=== PATIENT | female | born 1945 | race Caucasian/White ===

== ENCOUNTER 2022-07-07 20:54 | Inpatient (IN) | payer OTHER, SELFPAY ==
--- NOTE | ~2022-07-07 | XR_ITS ---
EXAMINATION: XR CHEST CLINICAL INFORMATION: Shortness of breath COMPARISON: None TECHNIQUE: Frontal view of the chest was obtained. FINDINGS: The heart and pulmonary vessels appear normal. No infiltrates, effusions or lung masses are seen. Marked degenerative changes are present in both shoulders. XR/XR chest 1V IMPRESSION: No acute intrathoracic disease.
[2022-07-07 21:20] VITALS: BP 131/55; PULSE 90; RESP 16; TEMP 36.6; O2SAT 98; BMI 51.3
--- NOTE | 2022-07-07 23:09 | ED_ITS ---
HPI - Psych General Chief Complaint: Psychiatric Symptoms Stated Complaint: SI Time Seen by Provider: 07/07/22 22:26 Source: patient Mode of arrival: EMS Limitations: no limitations History of Present Illness HPI Narrative: Patient obese with history of depression, lymphedema, indwelling Membreno catheter nonambulatory comes here because she feeling very depressed feel like hurting herself with a plan to drink bleach patient had been having same feeling for long time and been fighting with depression with multiple reasons quality of life which she is not happy with. Patient denied fever/chills no nausea no vomi ting no diarrhea no abdominal pain Related Data Allergies Allergy/AdvReac Type Severity Reaction Status Date / Time adhesive tape [ADHESIVE TAPE] Allergy Unknown RASH Verified 07/07/22 22:06 penicillin V Allergy Unknown Unknown Verified 07/07/22 22:06 Penicillins [PCN] Allergy Unknown HIVES Verified 07/07/22 22:06 Sulfa (Sulfonamide Allergy Unknown HIVES Verified 07/07/22 22:06 Antibiotics) [SULFA(SULFONAMIDE ANTIBIOTICS)] sulfacetamide Allergy Unknown Unknown Verified 07/07/22 22:06 adhesive tape Allergy Unknown Unknown Uncoded 07/07/22 22:06 Review of Systems Review of Systems: Yes all other systems are reviewed and are negative [facility] Social History Social History Advance Directives: No Advance Directives Information Provided: No Physical Exam Vital Signs: Vital Signs: Last Vital Signs Temp 97.8 F 07/07/22 21:20 Pulse 90 07/07/22 21:20 Resp 16 07/07/22 21:20 BP 131/55 L 07/07/22 21:20 Pulse Ox 98 07/07/22 21:20 O2 Del Method 07/07/22 21:20 BMI result Body Mass Index 51.3 Appearance: Alert. Oriented X3. No acute distress. Eyes: PERRLA, No Nystagmus ENT: Pharynx normal. Oral Mucosa moist Neck: Normal inspection. Neck supple. CVS: Normal heart rate and rhythm. Pulses normal. Respiratory: No respiratory distress. Equal air entry bilateral, no wheezing/rales/rhonchi Abdomen: Soft and nontender. Bowel sounds are present, no mass palpable, no CVA tenderness Skin: Skin warm and dry. Normal skin color. Normal skin turgor. Extremities: Bilateral nonpitting leg edema. No calf tenderness psych; will depressed and suicidal no hallucinations/delusions Neuro: Oriented X 3. No motor deficit. No sensory deficit.No cerebellar signs , cranial nerves II-XII intact Medications Administered Discontinued Medications Generic Name Dose Route Start Last Admin Trade Name Susan PRN Reason Stop Dose Admin Acetaminophen 975 mg 07/07/22 23:10 07/07/22 23:50 Acetaminophen 325 Mg Tablet PO 07/07/22 23:11 975 mg ONCE ONE Administration Medical Decision Making Medical Decision Making MDM Narrative: Patient with major depression with suicidal ideation medically cleared .get crisis evaluation UA is pending Lab Data [facility] Lab Attestation statement: I reviewed the patient's lab results. Result Diagrams: 07/07/22 23:59 07/07/22 23:59 Labs: Lab Results 07/07/22 07/07/22 07/07/22 Range/Units 23:59 23:59 23:59 WBC 6.6 (4.8-10.8) X10*3/uL RBC 3.66 L (4.20-5.50) X10*6/uL Hgb 11.9 L (12.0-16.0) g/dl Hct 35.6 L (37.0-47.0) % MCV 97.3 (80.0-98.0) fL MCH 32.5 (27.0-33.0) pg MCHC 33.4 (31.0-35.0) g/dl RDW 13.2 (11.0-16.0) % Plt Count 201 (160-400) X10*3/uL MPV 9.6 (9.4-12.3) fL Immature Gran % (Auto) 0.3 (0.0-0.4) % Neut % (Auto) 65.6 (45-73) % Lymph % (Auto) 22.7 (20-40) % Jay % (Auto) 8.8 (2-11) % Eos % (Auto) 1.8 (0-4) % Baso % (Auto) 0.8 (0-2) % Lymph # (Auto) 1.5 (1.2-4.9) X10*3/uL Jay # (Auto) 0.6 (0.1-1.2) X10*3/uL Eos # (Auto) 0.1 (0.0-0.4) X10*3/uL Baso # (Auto) 0.1 (0.0-0.2) X10*3/uL Abs Immat Gran (auto) 0.02 (0.00-0.03) X10*3/uL Absolute Neuts (auto) 4.4 (2.0-8.3) x10*3/uL Absolute Nucleated RBC 0.000 (0.0-0.012) X10*3/uL Nucleated RBC % (auto) 0.0 (0.0-0.2) /100WBC Sodium (135-145) mmol/L Potassium (3.3-5.1) mmol/L Chloride (96-108) mmol/L Carbon Dioxide (22-29) mmol/L Anion Gap (12-20) BUN (9-16) mg/dL Creatinine (0.5-1.4) mg/dL Estim Creat Clear Calc Estimated GFR Random Glucose (60-115) mg/dL Calcium (8.4-10.2) mg/dL Magnesium (1.6-2.6) mg/dL Total Bilirubin (0.0-1.0) mg/dL AST (5-31) U/L ALT (0-31) U/L Alkaline Phosphatase (39-117) U/L Total Protein (6.5-8.0) g/dL Albumin (3.5-5.0) g/dL Ethyl Alcohol < 10 mg/dL COVID-19 (SHRUTI) Negative (Negative) COVID-19 Clin Com See Note 07/07/22 Range/Units 23:59 WBC (4.8-10.8) X10*3/uL RBC (4.20-5.50) X10*6/uL Hgb (12.0-16.0) g/dl Hct (37.0-47.0) % MCV (80.0-98.0) fL MCH (27.0-33.0) pg MCHC (31.0-35.0) g/dl RDW (11.0-16.0) % Plt Count (160-400) X10*3/uL MPV (9.4-12.3) fL Immature Gran % (Auto) (0.0-0.4) % Neut % (Auto) (45-73) % Lymph % (Auto) (20-40) % Jay % (Auto) (2-11) % Eos % (Auto) (0-4) % Baso % (Auto) (0-2) % Lymph # (Auto) (1.2-4.9) X10*3/uL Jay # (Auto) (0.1-1.2) X10*3/uL Eos # (Auto) (0.0-0.4) X10*3/uL Baso # (Auto) (0.0-0.2) X10*3/uL Abs Immat Gran (auto) (0.00-0.03) X10*3/uL Absolute Neuts (auto) (2.0-8.3) x10*3/uL Absolute Nucleated RBC (0.0-0.012) X10*3/uL Nucleated RBC % (auto) (0.0-0.2) /100WBC Sodium 140 (135-145) mmol/L Potassium 3.7 (3.3-5.1) mmol/L Chloride 104 (96-108) mmol/L Carbon Dioxide 27 (22-29) mmol/L Anion Gap 13 (12-20) BUN 20 H (9-16) mg/dL Creatinine 0.83 (0.5-1.4) mg/dL Estim Creat Clear Calc 75.3 Estimated GFR > 60 Random Glucose 121 H (60-115) mg/dL Calcium 9.0 (8.4-10.2) mg/dL Magnesium 2.0 (1.6-2.6) mg/dL Total Bilirubin 0.7 (0.0-1.0) mg/dL AST 19 (5-31) U/L ALT 16 (0-31) U/L Alkaline Phosphatase 82 (39-117) U/L Total Protein 5.7 L (6.5-8.0) g/dL Albumin 3.4 L (3.5-5.0) g/dL Ethyl Alcohol mg/dL COVID-19 (SHRUTI) (Negative) COVID-19 Clin Com Discharge Plan Discharge Clinical Impression: Suicidal ideation, Depression Patient Disposition: Still a Patient
[2022-07-07] MEDS: Acetaminophen 325 MG TABLET 975 MG PO (23:50)
[2022-07-08 00:06] LABS: MANUAL DIFF FLAG NO
[2022-07-08 00:07] LABS: Basophils Absolute Auto 0.1 X10*3/uL (0.0-0.2); Basophils Percent Auto 0.8 % (0-2); Eosinophils Absolute Auto 0.1 X10*3/uL (0.0-0.4); Eosinophils Percent Auto 1.8 % (0-4); Hematocrit 35.6 % (37.0-47.0); Hemoglobin 11.9 g/dl (12.0-16.0); Imm Gran Abs Auto 0.02 X10*3/uL (0.00-0.03); Imm Gran Pct Auto 0.3 % (0.0-0.4); Lymphocytes Absolute Auto 1.5 X10*3/uL (1.2-4.9); Lymphocytes Percent Auto 22.7 % (20-40); Mean Corpuscular HGB Conc 33.4 g/dl (31.0-35.0); Mean Corpuscular Hemoglobin 32.5 pg (27.0-33.0); Mean Corpuscular Volume 97.3 fL (80.0-98.0); Mean Platelet Volume 9.6 fL (9.4-12.3); Monocytes Absolute Auto 0.6 X10*3/uL (0.1-1.2); Monocytes Percent Auto 8.8 % (2-11); Neutrophils Absolute Auto 4.4 x10*3/uL (2.0-8.3); Neutrophils Percent Auto 65.6 % (45-73); Platelet Count 201 X10*3/uL (160-400); Red Blood Count 3.66 X10*6/uL (4.20-5.50); Red Cell Distribution Width 13.2 % (11.0-16.0); White Blood Count 6.6 X10*3/uL (4.8-10.8)
[2022-07-08 00:18] LABS: Ethanol < 10 mg/dL
[2022-07-08 00:22] LABS: Alanine Aminotransferase 16 U/L (0-31); Albumin Level 3.4 g/dL (3.5-5.0); Alkaline Phosphatase 82 U/L (39-117); Anion Gap 13 (12-20); Aspartate Amino Transferase 19 U/L (5-31); Blood Urea Nitrogen 20 mg/dL (9-16); Carbon Dioxide 27 mmol/L (22-29); Chloride 104 mmol/L (96-108); Creatinine Clr Calc Pharmacy 75.3; Estimated Glomerular Filt Rate > 60; Glucose Random 121 mg/dL (60-115); Potassium 3.7 mmol/L (3.3-5.1); Sodium 140 mmol/L (135-145); Total Protein 5.7 g/dL (6.5-8.0)
[2022-07-08 00:31] LABS: COVID-19 Test Negative (Negative)
--- NOTE | 2022-07-08 00:53 | PC.NURSE ---
Bessy from [facility] called and will be here to evaluate pt.
[2022-07-08 01:16] LABS: Bilirubin Total 0.7 mg/dL (0.0-1.0)
[2022-07-08 03:12] LABS: Appearance Urine Clear; Color Urine Yellow; Glucose Urine UA Negative (Negative); Leukocyte Esterase Urine Large (3+) (Negative); Nitrite Urine Positive (Negative); PH 6.5 (5.0-9.0); UMIC TRIGGER UACC YES; Urine Blood Negative (Negative); Urine Ketones Negative (Negative); Urine Protein Negative (Neg-Trace)
[2022-07-08 03:14] LABS: Bacteria Urine 4+ (None Seen); Squamous Epithelial Cell Urine 0-2 /HPF (0-2); UACC Culture Trigger YES; WBC Urine 21-50 /HPF (0-5)
--- NOTE | 2022-07-08 03:17 | PC.NURSE ---
[facility] at the bedside
[2022-07-08 03:48] LABS: Amphetamine Screen Urine Not Detected (Not Detect); Barbiturates, Urine Not Detected (Not Detect); Benzodiazepines Screen Urine Not Detected (Not Detect); Cannabinoid Screen Urine POSITIVE (Not Detect); Cocaine Screen Urine Not Detected (Not Detect); Fentanyl, urine Not Detected (Not Detect); Opiate Screen Urine Not Detected (Not Detect); Phencyclidine Screen Urine Not Detected (Not Detect)
[2022-07-08 04:07] VITALS: BP 134/73; PULSE 69; RESP 18; TEMP 36.7; O2SAT 95
--- NOTE | 2022-07-08 05:26 | PC.NURSE ---
pt is complaining that her bed is not comfortable she is use to sleeping in a recliner
[2022-07-08 05:33] VITALS: BP 153/73; PULSE 88; RESP 18; TEMP 36.3; O2SAT 94
--- NOTE | 2022-07-08 08:01 | PHA.MEDREC ---
Pharmacy Consult ? Medication Reconciliation Pharmacy has completed the medication reconciliation.
--- NOTE | 2022-07-08 08:16 | PC.NURSE ---
patient requesting Tylenol for pain. override ok per dr keane, computer flagging med due to allergy to adhesive tape.
[2022-07-08] MEDS: Acetaminophen 325 MG TABLET 650 MG PO (08:20)
[2022-07-08 08:23] VITALS: BP 141/51; PULSE 89; RESP 20; TEMP 36.4; O2SAT 96
[2022-07-08] MEDS: Ascorbic Acid 500 MG TABLET 1000 MG PO (10:59)
[2022-07-08] MEDS: Docusate Sodium 100 MG CAPSULE PO ×2 (10:59→20:26)
[2022-07-08] MEDS: Cholecalciferol (Vitamin D3) 25 MCG TABLET 50 MCG PO (10:59)
[2022-07-08] MEDS: Omeprazole 20 MG CAPSULE.DR PO (11:00)
[2022-07-08] MEDS: Multivitamin TABLET 1 TAB PO (11:00)
[2022-07-08] MEDS: Apixaban 2.5 MG TABLET PO ×2 (11:00→20:25)
[2022-07-08] MEDS: Torsemide 20 MG TABLET PO ×2 (11:00→20:29)
--- NOTE | 2022-07-08 12:21 | PC.NURSE ---
spoke with Dr Horton regarding patients urine results, per , wait to see what urine culture comes back as. patient has chronic stallings cath in place.
[2022-07-08] MEDS: Acetaminophen 325 MG TABLET 975 MG PO (14:35)
[2022-07-08] MEDS: Gabapentin 300 MG CAPSULE 900 MG PO ×2 (14:35→22:51)
[2022-07-08 14:36] VITALS: BP 138/61; PULSE 96; RESP 20; O2SAT 95
--- NOTE | 2022-07-08 15:56 | ECG_ITS ---
Test Reason : PRE ADMISSION Blood Pressure : / mmHG Vent. Rate : 080 BPM Atrial Rate : 080 BPM P-R Int : 184 ms QRS Dur : 088 ms QT Int : 422 ms P-R-T Axes : 041 011 023 degrees QTc Int : 486 ms Normal sinus rhythm Normal ECG No previous ECGs available Referred By: Ava Horton Electronically Signed By:DEBBIE ISAAC
[2022-07-08] MEDS: OLANZapine 2.5 MG TABLET PO (20:25)
[2022-07-08] MEDS: FLUoxetine HCl 10 MG CAPSULE PO (20:26)
[2022-07-08] MEDS: Calcium Carbonate 750 MG TAB.CHEW 1500 MG PO (20:27)
[2022-07-08 22:42] VITALS: BP 132/69; PULSE 92; RESP 16; TEMP 36.8; O2SAT 95
[2022-07-08] MEDS: LORazepam 1 MG TABLET PO (22:52)
[2022-07-08] MEDS: Nystatin Powder 15 GM BOTTLE 1 APPL TOPICAL (22:52)
[2022-07-08] MEDS: Melatonin 3 MG TABLET 9 MG PO (22:52)
[2022-07-09] MEDS: Acetaminophen 325 MG TABLET 975 MG PO ×3 (01:40→20:40)
[2022-07-09 05:55] VITALS: BP 140/72; PULSE 69; RESP 16; TEMP 36.9; O2SAT 93
[2022-07-09 06:57] VITALS: BP 148/69; PULSE 84; RESP 14; O2SAT 95
[2022-07-09] MEDS: Omeprazole 20 MG CAPSULE.DR PO (07:17)
[2022-07-09] MEDS: FLUoxetine HCl 10 MG CAPSULE 15 MG PO (08:15)
[2022-07-09] MEDS: Apixaban 2.5 MG TABLET PO ×2 (08:16→20:41)
[2022-07-09] MEDS: Gabapentin 300 MG CAPSULE 900 MG PO ×3 (08:16→20:42)
[2022-07-09] MEDS: Torsemide 20 MG TABLET PO ×2 (08:16→20:44)
[2022-07-09] MEDS: Multivitamin TABLET 1 TAB PO (08:16)
[2022-07-09] MEDS: Docusate Sodium 100 MG CAPSULE PO ×2 (08:16→20:42)
[2022-07-09] MEDS: Ascorbic Acid 500 MG TABLET 1000 MG PO (12:00)
[2022-07-09] MEDS: Cholecalciferol (Vitamin D3) 25 MCG TABLET 50 MCG PO (12:00)
[2022-07-09 14:27] VITALS: BP 111/63; PULSE 90; O2SAT 94
--- OUTSIDE RECORDS SUMMARY | 2022-07-09 16:21 | XMS_ITS ---
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, bilateral legs ALLERGIES Substance Reaction Event Type Date Status Bactrim Unknown Drug Allergy Sep, Active Adhesive Bandages Unknown Drug Allergy Sep, Active Penicillin Unknown Drug Allergy Sep, Active ENCOUNTERS Encounter Location Date Diagnosis [address] 15 Jun, 2022 [place] [address] [facility] [address] [place] [address] 14 Mar, 2022 [place] [address] [facility] [address] Jan, [place] [address] [facility] [place] [address] 04 Sep, 2021 Tinea darrell uium B35.1 ; Pain [place] in right toe(s) M79.674 ; [address] Pain in left toe (s) M79.675 ; Primar y osteoarthritis, left ankle and foot M19.072 ; Primary osteoarthritis, right ankle and foot M 19.071 ; Unspecified atherosclerosis of circle arteries of extr emities, bilateral legs I 70.203 ; Ganglion, multip le sites M67.49 and Neura lgia and neuritis, unspec ified M79.[address] 11 Jul, 2021 [place] [address] [facility] [place] [address] Jun, [place] [address] [place] [address] Mar, Tinea darrell uium B35.1 ; Pain [place] in right toe(s) M79.674 ; [address] Pain in left toe (s) M79.675 ; Primar y osteoarthritis, left ankle and foot M19.072 ; Primary osteoarthritis, right ankle and foot M 19.071 ; Unspecified atherosclerosis of circle arteries of extr emities, bilateral legs I 70.203 ; Ganglion, multip le sites M67.49 and Neura lgia and neuritis, unspec ified M79.2 [place] [address] Sep, Tinea darrell uium B35.1 ; Pain [place] in right toe(s) M79.674 ; [address] Pain in left toe (s) M79.675 ; Primar y osteoarthritis, left ankle and foot M19.072 ; Primary osteoarthritis, right ankle and foot M 19.071 and Unspecified atherosclerosis of circle arteries of extr emities, bilateral legs I 70.203 [facility] [address] Jun, [place] [address] [place] [address] Mar, Tinea darrell uium B35.1 ; Pain [facility], [place] in right toe(s) M79.674 ; [address] Pain in left toe (s) M79.675 ; Primar y osteoarthritis, left ankle and foot M19.072 ; Primary osteoarthritis, right ankle and foot M 19.071 and Unspecified atherosclerosis of circle arteries of extr emities, bilateral legs I 70.203 [facility] [address] Dec, Tinea darrell uium B35.1 ; Pain [facility], [place] in right toe(s) M79.674 ; [address] Pain in left toe (s) M79.675 ; Primar y osteoarthritis, left ankle and foot M19.072 ; Primary osteoarthritis, right ankle and foot M 19.071 and Unspecified atherosclerosis of circle arteries of extr emities, bilateral legs I 70.203 [facility] [address] [place] [address] Jul, Tinea darrell uium B35.1 ; Pain [place] in right toe(s) M79.674 ; [address] Pain in left toe (s) M79.675 ; Primar y osteoarthritis, left ankle and foot M19.072 ; Primary osteoarthritis, right ankle and foot M 19.071 and Unspecified atherosclerosis of circle arteries of extr emities, bilateral legs I 70.203 [facility] [address] [place] [address] 16 Apr, 2019 [place] [address] [facility] [address] [address] Apr, Tinea darrell uium B35.1 ; Pain [place] in right toe(s) M79.674 ; [address] Pain in left toe (s) M79.675 ; Primar y osteoarthritis, left ankle and foot M19.072 ; Primary osteoarthritis, right ankle and foot M 19.071 and Unspecified atherosclerosis of circle arteries of extr emities, bilateral legs I 70.203 [facility] [address] [place] [address] Mar, [place] [address] [facility] [address] [place] [address] Feb, [place] [address] [facility] [address] [address] Feb, [place] [address] [facility] [address] [address] Feb, [place] [address] [facility] [address] [address] Feb, [place] [address] [facility] [address] [place] [address] Feb, Tinea darrell uium B35.1 ; [place] Non-pressure chr onic ulcer [address] of other part of right foot with fat la santiago exposed L97.512 ; Pain in right toe(s) M79 .674 ; Pain in left toe (s) M79.675 ; Primar y osteoarthritis, left ankle and foot M19.072 ; Primary osteoarthritis, right ankle and foot M 19.071 ; Unspecified atherosclerosis of circle arteries of extr emities, bilateral legs I 70.203 ; Cutaneous absces s of right foot L02.611 and Cellulitis of ri ght toe L03.031 [facility] [address] [facility] [address] 08 Jun, 2017 [place] [address] 12 Dec, 2016 Tin ea unguium B35.1 ; [place] Non-pressure ch ronic ulcer [address] of other part of right foot limited to breakdown of skin L97.511 ; Pain in right toe(s) M79 .674 ; Pain in left toe (s) M79.675 ; Primar y osteoarthritis, left ankle and foot M19.072 ; Primary osteoarthritis, right ankle and foot M 19.071 and Unspecified atherosclerosis of circle arteries of extr emities, bilateral legs I 70.203 [facility] [address] Mar, Uns pecified [place] atherosclerosis of circle [address] arteries of extr emities, bilateral legs I 70.203 ; Tinea unguium B3 5.1 ; Pain in right toe(s) M79.674 and Pain in left toe(s) M79.[address] Feb, [place] [address] Jan, [place] [address] November, [place] [address] [facility] November, [place] [address] Sep, Ing rowing nail L60.0 ; [place] Non-pressure ch ronic ulcer [address] of other part of right foot limited to breakdown of skin L97.511 ; Unspecified atherosclerosis of circle arteries of extr emities, bilateral legs I 70.203 ; Primary osteoart hritis, left ankle and f oot M19.072 and Prim artemio osteoarthritis, right ankle and foot M 19.071 [facility] [address] [facility] [address] 17 Aug, 2015 Non-press ure chronic ulcer [place] of other part of right [address] foot limited to breakdown of skin L97.[address] 04 Dec, 2014 Ing rowing Nail 703.0 ; [place] Arthritis - Deg enerative [address] 719.97 ; Flat Fo ot, 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 ; Onychomycosis 11 0.1 and Pain in Limb [address] May, [place] [facility] [place] [address] November, Suki chomycosis 110.1 ; [place] Ingrowing Nail 703.0 and [address] Pain in Limb 7[address] November, Suki chomycosis 110.1 ; [place] Ingrowing Nail 703.0 ; [address] Pain in Limb 729 .5 ; Arthritis - Dege nerative 719.97 ; Flat Fo ot, 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 and Edema 782.3 IMMUNIZATIONS No Known Immunizations SOCIAL HISTORY Never Assessed REASON FOR REFERRAL Referring Provider First Name Sybil Referring Provider Last Name Anastacio Referring Provider Specialty Internal Medicine Referred Organization [facility] Referred Provider Jeffery Salinas Referred Address [address],[place], [place],[address] Referred Provider Specialty Podiatry Referring Provider First Name Sybil Referring Provider Last Name Anastacio Referring Provider Specialty Internal Medicine Referred Organization [facility] Referred Provider Jeffery Salinas Referred Address [address],[place], [place],[address] Referred Provider Specialty Podiatry Referring Provider First Name Sybil Referring Provider Last Name Anastacio Referring Provider Specialty Internal Medicine Referred Organization [facility] Referred Provider Jeffery Salinas Referred Address [address],[place],[address] Referred Provider Specialty Podiatry Referring Provider First Name Fernando Referring Provider Last Name Constanza Referred Organization [facility] Referred Provider Jeffery Salinas Referred Address [address] [facility],[address],[facility] [place],[address] Referred Provider Specialty Podiatry Referring Provider First Name Fernando Referring Provider Last Name Constanza Referred [facility] Referred Provider SalinasFannyJeffery Referred Address [address] [place], [place],[address] Referred Provider Specialty Podiatry FUNCTIONAL STATUS PLAN OF CARE Activity Details Referral Jeffery Salinas, [address] [facility], [place], [address], Referral Jeffery Salinas, [address] [facility], [place], [address], Referral Jeffery Salinas, [address] [facility], [place], [address], Referral Jeffery Salinas, [address] [facility], [place], [address], Referral Jeffery Salinas, [address] [place], [address], [email or web address], Future/Pending Procedure 20697-UUXS SKIN LESIONS, 2 T O 4 Future/Pending Procedure 88128-AWIL SKIN LESIONS, 2 T O 4 Future/Pending Procedure 17531-KCPQ SKIN LESIONS, 2 T O 4 Future/Pending Procedure 94046-ASDB SKIN LESIONS, 2 T O 4 Future/Pending Procedure 50518-CZCO SKIN LESIONS, 2 T O 4 Future/Pending Procedure 14652-OZSU SKIN LESIONS, 2 T O 4 Future/Pending Procedure 91962-DAWH SKIN LESIONS, 2 T O 4 Future/Pending Procedure 95943-MRHRUVO SKIN/TISSUE Future/Pending Procedure 96873-ENQYGAU NAIL, 6 OR MOR E Future/Pending Procedure 47699- Debride <25 sq cm Future/Pending Procedure 38143-LYYPTKQ NAIL, 1-5 Future/Pending Procedure 90504-QLVD SKIN LESION Future/Pending Procedure 10601-Glhabvzq Plate Future/Pending Procedure 73390- Debride <25 sq cm Future/Pending Procedure 69788-Owidxvep Plate Future/Pending Procedure 66522-Wgrenudu Plate Each Ad ditional Future/Pending Procedure 85873-PXVNANO NAIL, 1-5 Future/Pending Procedure 78946-Kqokwofz Plate Future/Pending Procedure 26282-HBEPFPT NAIL, 1-5 Future/Pending Procedure 10102-Mzthvmur Plate VITAL SIGNS Height 5 ft 3 in in 2021-09-26 Weight 267 lbs 2021-09-26 BMI 47.29 kg/m2 2021-09-26 Heart Rate 96 /min 2019-05-05 Temperature 97.9 degrees Fahrenheit 2020-10-01 Blood pressure systolic 135 mm Hg 2019-05-05 Blood pressure diastolic 88 mm Hg 2019-05-05 MEDICATIONS Medication Instructions Dosage Frequency Start End Duration Statu s Date Date Naproxen Not-Taki ng Docusate Sodium Not-Taki ng Eliquis Active Bumetanide Active MiraLax Active LORazepam Active Gabapentin 600 Orally Three 1 tablet 8h 30 day(s) N ot-Taki MG times a day ng OxyCONTIN Active Centrum Silver as directed Not-T fernando ng Cranberry Active Vitamin D3 Not-Taki ng Pyridium Active Senna Active Vitamin C Not-Taki ng Trospium Active Chloride Omeprazole Active buPROPion HCl Active Cymbalta Active Acetaminophen Active Potassium Active Chloride Colace Active Ketoconazole Not-Taki ng Extra Depth for 1 year Mar, Active Diabetic Shoes 2020 with 3 Pair Custom heat-molded multi-density innersoles Magnesium Oxide Not-Taki ng Cipro 500 MG Orally every 12 1 tablet 12h Feb, day(s) Not-Taki hrs 2018 ng Maalox Not-Taki ng oxyCODONE HCl ER Orally every 8 1 tablet 8h Active 20 MG hours Milk of Magnesia Not-Conrad i ng PROCEDURES Procedure Date Ordered Result Body Site DEBRIDE NAIL, 6 OR MORE Apr 09, 2020 Avulsion Plate December 21, 2013 DEBRIDE NAIL, 6 OR MORE Aug 04, 2019 DEBRIDE NAIL, 6 OR MORE January 12, 2020 DEBRIDE NAIL, 6 OR MORE May 05, 2019 ACTIVE WOUND CARE/20 CM OR < January 04, 2017 DEBRIDE SKIN/TISSUE Mar 03, 2019 Avulsion Plate December 27, 2014 DEBRIDE NAIL, 6 OR MORE Aug 05, 2021 DEBRIDE NAIL, 6 OR MORE January 04, 2017 DEBRIDE NAIL, 6 OR MORE Apr 01, 2021 ACTIVE WOUND CARE/20 CM OR < Sep 11, 2015 DEBRIDE NAIL, 6 OR MORE October 01, 2020 TRIM SKIN LESIONS, 2 TO 4 Apr 01, 2021 Avulsion Plate September 26, 2015 DEBRIDE NAIL, 6 OR MORE Apr 12, 2020 DEBRIDE NAIL, 1-5 Apr 14, 2016 DEBRIDE NAIL, 1-December 12, 2012 DEBRIDE NAIL, 6 OR MORE Jul 10, 2022 DEBRIDE NAIL, 6 OR MORE Apr 10, 2022 DEBRIDE NAIL, 6 OR MORE September 26, 2021 DEBRIDE NAIL, 1-5 December 21, 2013 TRIM SKIN LESION Apr 14, 2016 TRIM SKIN LESIONS, 2 TO 4 Apr 10, 2022 TRIM SKIN LESIONS, 2 TO 4 Jul 10, 2022 Avulsion Plate December 12, 2012 TRIM SKIN LESIONS, 2 TO 4 January 12, 2020 TRIM SKIN LESIONS, 2 TO 4 Apr 12, 2020 TRIM SKIN LESIONS, 2 TO 4 October 01, 2020 TRIM SKIN LESIONS, 2 TO 4 September 26, 2021 Avulsion Plate Each Additional December 27, 2014 TRIM SKIN LESIONS, 2 TO 4 May 05, 2019 TRIM SKIN LESIONS, 2 TO 4 Aug 04, 2019 RESULTS No Results REASON FOR VISIT Insurance Providers [facility] Health Member Patient Patient Patient Patient Patient Subscriber Subscriber Subscriber Group Insurance Plan Plan Plan Plan ID Relationship Address Phone Name Date of ID Name Date of No Type Insurance Insurance Insurance Coverage to Subscriber Address Phone Name Dates Elsie Claims [phone] Elsie self Tasneem [id number] Health Adjudicati [address] [id number] [facility] [address] MEDICAL (GENERAL) HISTORY Type Description Date Medical History Arthritis Medical History back, hip, knee pain Medical History broken bones Medical History depression Medical History Diverticulitis Medical History high blood pressure Medical History neuropathy Medical History osteoporosis Medical History poor circulation Medical History transfusions Surgical History hysterectomy 1972 Surgical History appendectomy Surgical History vein ligation Surgical History hernia 04/05/2015 Surgical History fx tibia surgery with therese 2011 Surgical History colonoscopy Hospitalization History [facility], overnight, lymphadema 11/12 14 Hospitalization History [facility] Xrays bilateral fe et 02/17/19 Hospital[facility], Colonoscopy, GI Bleed 08/2019 & 10/2019 Hospitalization History [facility], Lymphodema 09/2020 Hospital[facility] History [facility]- Nervous breakdown 01/13
--- OUTSIDE RECORDS SUMMARY | 2022-07-09 16:21 | XMS_ITS | Continuity of Care Document ---
:1945 Author Organization [facility] Address [address] [place] [address]- Care Team Providers Name Role Phone Not on Staff, PCP Primary Care Physician Unavailable Encounter [facility] Date(s): 05/08/20 - 09/05/20 [facility] [address] [address]- Attending Physician: Akash Armenta MD Admitting Physician: Akash Armenta MD Referring Physician: Akash Armenta MD Allergies, Adverse Reactions, Alerts Substance Reaction Severity Status penicillin rash Active sulfa drugs rash Active Adhesive Bandage Rash Active Itchy Immunizations Given and Recorded Vaccine Date Status Refusal Reason influenza virus vaccine, inactivated 09/20/10 Given Pneumococcal Vaccine (oldterm) 08/02/08 Given Medications acetaminophen 500 mg oral capsule 2 capsule = 1,000 mg, By Mouth, Every 6 hours, 0 Refills, Maintenance, 04/25/20 11:48:00 EDT Start Date: 04/25/20 Status: OrderedAmitiza 24 mcg oral capsule 1 capsule = 24 mcg, By Mouth, 2 times a day, 0 Refills, Maintenance, 04/25/20 11:49:00 EDT Start Date: 04/25/20 Status: Orderedascorbic acid 100 mg oral tablet, chewable 1 tablet = 100 mg, Daily, 0 Refills, Maintenance, 04/25/20 11:49:00 EDT Start Date: 04/25/20 Status: OrderedBiofreeze 10.5% topical spray 1 sprays, Topically, 0 Refills, Maintenance, 04/25/20 11:50:00 EDT Start Date: 04/25/20 Status: OrderedBiotene Oral Balance oral gel 6 times a day, 0 Refills, Maintenance, 04/25/20 11:50:00 EDT Start Date: 04/25/20 Status: OrderedBIPAP ST 16/10 rate 12 with 3.5 L O2 with heated humidification BIPAP ST 16/10 rate 12 with 3.5 L O2 with heated humidification, See Instructions, # 1 each, Refills0, Tot. Refills 0, Maintenance, use overnight and naps from [facility], 10/21/17 10:38:31 EDT, Compound Start Date: 10/21/17 Status: Orderedbumetanide 1 mg oral tablet 1 mg, 1, tablet, By Mouth, Daily, Refills 0, Maintenance, 04/25/20 11:51:00 EDT Start Date: 04/25/20 Status: OrderedbuPROPion 75 mg oral tablet 1 tablet = 75 mg, By Mouth, 3 times a day, 0 Refills, Maintenance, 04/25/20 11:51:00 EDT Start Date: 04/25/20 Status: OrderedCelexa Tablet 40 mg, By Mouth, Daily at bedtime, Refills 0, Tot. Refills 0, Maintenance, 07/30/08 4:40:47 Start Date: 07/30/08 Status: OrderedCentrum Silver See Instructions, By Mouth BID, 0 Refills, Maintenance Start Date: 06/12/13 Status: Orderedclonidine 0.2 mg oral tablet 1 tablet = 0.2 mg, By Mouth, Daily at supper, 0 Refills, Maintenance, 09/11/10 13:45:10 Start Date: 09/11/10 Status: OrderedColace Capsule 100 mg, By Mouth, Daily at bedtime, Maintenance, 09/11/10 13:46:40 Start Date: 09/11/10 Status: OrderedCranberry 1 tablet, By Mouth, Daily, 0 Refills, Maintenance, 02/17/17 13:00:35 Start Date: 02/17/17 Status: Ordereddiclofenac 1.5% topical solution 40 drops, Topically, 3 times a day, # 1 each, 0 Refills, Maintenance, 02/17/17 12:56:06, Solution Start Date: 02/17/17 Status: Orderedduloxetine 60 mg oral enteric coated capsule 1 capsule = 60 mg, By Mouth, Daily, 0 Refills, Maintenance, 04/25/20 11:52:00 EDT Start Date: 04/25/20 Status: OrderedEliquis 2.5 mg oral tablet 1 tablet = 2.5 mg, By Mouth, 2 times a day, 0 Refills, Maintenance, 04/25/20 11:52:00 EDT Start Date: 04/25/20 Status: OrderedEstradiol 0 Refills, Maintenance, 04/25/20 11:53:00 EDT Start Date: 04/25/20 Status: [id number] Medium Air Touch mask F20 Medium Air Touch mask, See Instructions, # 1 each, Refills 3, Tot. Refills 3, Maintenance, use with PAP, 11/10/17 15:50:06 EDT, Compound Start Date: 11/10/17 Status: Orderedgabapentin 600 mg oral tablet 1 tablet = 600 mg, By Mouth, Every 8 hours, 0 Refills, Maintenance, 06/08/13 7:31:46 Start Date: 06/08/13 Status: Orderedketoconazole 2% topical cream 1 application, Topically, 2 times a day, to affected area, # 30 Gm, 3 Refills, Maintenance, 11/10/1814:48:30 EDT, Cream Start Date: 11/10/17 Status: OrderedLasix 40 mg oral tablet 40 mg, 1, tablet, By Mouth, Daily, Refills 0, Maintenance, 07/02/16 11:46:00 Start Date: 07/02/16 Status: OrderedLORazepam 0.5 mg oral tablet 1 tablet = 0.5 mg, By Mouth, 3 times a day, 0 Refills, Maintenance, 04/25/20 11:53:00 EDT Start Date: 04/25/20 Status: Orderedmagnesium oxide 400 mg oral tablet 1 tablet = 400 mg, By Mouth, Daily, 0 Refills, Maintenance, 03/07/15 9:58:11 Start Date: 03/07/15 Status: Orderedmelatonin 10 mg oral capsule 1 capsule = 10 mg, By Mouth, Daily at bedtime, 0 Refills, Maintenance, 04/25/20 11:53:00 EDT Start Date: 04/25/20 Status: OrderedMiraLax = 17 Gm, By Mouth, Daily, 0 Refills, Maintenance, 04/25/20 11:54:00 EDT Start Date: 04/25/20 Status: OrderedOxycodone = 5 mg, By Mouth, Every 8 hours, 0 Refills, Maintenance, 02/17/17 12:56:46 EDT Start Date: 02/17/17 Status: OrderedOxyCONTIN 10 mg oral tablet, extended release 10 mg, 1, tablet, By Mouth, Every 12 hours, Refills 0, Tot. Refills 0, Maintenance, 04/25/20 11:54:00 EDT, Partial fill upon patient request Start Date: 04/25/20 Status: OrderedOxyCONTIN 20 mg oral tablet, extended release 20 mg, 1, tablet, By Mouth, Every 12 hours, Refills 0, Tot. Refills 0, Maintenance, 04/25/20 11:54:00 EDT, Partial fill upon patient request Start Date: 04/25/20 Status: Orderedpantoprazole 20 mg oral delayed release tablet 1 tablet = 20 mg, By Mouth, Daily, 0 Refills, Maintenance, 04/25/20 11:54:00 EDT Start Date: 04/25/20 Status: Orderedpotassium chloride 10 mEq oral capsule, extended release 1 capsule = 10 mEq, By Mouth, 2 times a day, 0 Refills, Maintenance, 04/25/20 11:55:00 EDT Start Date: 04/25/20 Status: OrderedPrilosec 20 mg oral enteric coated capsule 1 capsule = 20 mg, By Mouth, 2 times a day, 0 Refills, Maintenance Start Date: 03/10/12 Status: OrderedProbiotic Formula (Bacillus Coagulans) By Mouth, Daily, 0 Refills, Maintenance, 04/25/20 11:55:00 EDT Start Date: 04/25/20 Status: OrderedVitamin B-12 1000 mcg oral tablet 1 tablet = 1,000 mcg, By Mouth, Daily, 0 Refills, Maintenance Start Date: 06/12/13 Status: OrderedVitamin D3 2000 intl units oral capsule 1 capsule = 2,000 International_Units, By Mouth, Daily, 0 Refills, Maintenance Start Date: 06/12/13 Status: Orderedwarfarin 10 mg oral tablet 1 tablet = 10 mg, By Mouth, Daily, wed,fri, and sat ONLY, # 30 tablet, 0 Refills, Maintenance, 03/28/15 13:27:06, Tablet Start Date: 03/28/15 Status: Orderedwarfarin 7.5 mg oral tablet See Instructions, 1 tablet By Mouth wed,,urs and sat, 0 Refills, Maintenance, 03/28/15 13:29:29, Tablet Start Date: 03/28/15 Status: Ordered Problem List Condition Effective Dates Status Health Status Informant Sleep-related Active hypoventilation(Confirmed) 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
--- OUTSIDE RECORDS SUMMARY | 2022-07-09 16:21 | XMS_ITS | Continuity of Care Document ---
:1945 Author Organization [facility] Address [address] [place] [address]- Care Team Providers Name Role Phone Not on Staff, PCP Primary Care Physician Unavailable Encounter [facility] Date(s): 08/01/20 - 08/31/[address] [address] Allergies, Adverse Reactions, Alerts Substance Reaction Severity [...] 0, Maintenance, use overnight and naps from [facility], 10/21/17 10:38:31 EDT, Compound Start Date: 10/21/17 [...] 04/25/20 11:53:00 EDT Start Date: 04/25/20 Status: [id number] Medium Air Touch mask F20 Medium Air [...] tablet See Instructions, 1 tablet By Mouth mon,tues,thurs and sat, 0 Refills, Maintenance, 03/28/15 13:29:29, Tablet Start Date: 03/28/15 Status: Ordered Problem List Condition Effective Dates Status Health Status Informant Sleep-related Active hypoventilation(Confirmed) 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
--- OUTSIDE RECORDS SUMMARY | 2022-07-09 16:21 | XMS_ITS | Continuity of Care Document ---
:1945 Author Organization [facility] Address [address] [place] [address]- Care Team Providers Name Role Phone Not on Staff, PCP Primary Care Physician Unavailable Encounter [facility] [place] Date(s): 12/02/19 - 03/31/20 [facility] [address] [address]- [facility] Attending Physician: Akash Armenta MD Admitting Physician: Akash Armenta MD Allergies, Adverse Reactions, Alerts Substance Reaction Severity Status penicillin rash Active sulfa drugs rash Active Adhesive Bandage Rash Active Itchy Immunizations Given and Recorded Vaccine Date Status Refusal Reason influenza virus vaccine, inactivated 09/20/10 Given Pneumococcal Vaccine (oldterm) 08/02/[address] 16/10 rate 12 with 3.5 L O2 with heated humidification BIPAP ST 16/10 rate 12 with 3.5 L O2 with heated humidification, See Instructions, # 1 each, Refills0, Tot. Refills 0, Maintenance, use overnight and naps from [facility], 10/21/17 10:38:31 EDT, Compound Start Date: 10/21/17 Status: OrderedCelexa Tablet 40 mg, By Mouth, [...] 02/17/17 12:56:06, Solution Start Date: 02/17/17 Status: [id number] Medium Air Touch mask F20 Medium Air [...] Maintenance, 07/02/16 11:46:00 Start Date: 07/02/16 Status: Orderedmagnesium oxide 400 mg oral tablet 1 tablet = 400 mg, By Mouth, Daily, 0 Refills, Maintenance, 03/07/15 9:58:11 Start Date: 03/07/15 Status: OrderedOxycodone = 25 mg, By Mouth, Every 8 hours, 0 Refills, Maintenance, 02/17/17 12:56:46 Start Date: 02/17/17 Status: OrderedPrilosec 20 mg oral enteric coated capsule 1 capsule = 20 mg, By Mouth, 2 times a day, 0 Refills, Maintenance Start Date: 03/10/12 Status: OrderedVitamin B-12 1000 mcg oral tablet 1 tablet = 1,000 mcg, By Mouth, Daily, 0 Refills, Maintenance Start Date: 06/12/13 Status: OrderedVitamin D3 2000 intl units oral capsule 1 capsule = 2,000 International_Units, By Mouth, Daily, 0 Refills, Maintenance Start Date: 06/12/13 Status: Orderedwarfarin 10 mg oral tablet 1 tablet = 10 mg, By Mouth, Daily, wed,wed, and sat ONLY, # 30 tablet, 0 Refills, Maintenance, 03/28/15 13:27:06, Tablet Start Date: 03/28/15 Status: Orderedwarfarin 7.5 mg oral tablet See Instructions, 1 tablet By Mouth mon,tu,th and sat, 0 Refills, Maintenance, 03/28/15 13:29:29, Tablet Start Date: 03/28/15 Status: Ordered Problem List Condition Effective Dates Status Health Status Informant Sleep-related Active hypoventilation(Confirmed) 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
--- OUTSIDE RECORDS SUMMARY | 2022-07-09 16:21 | XMS_ITS | Continuity of Care Document ---
:1945 Author Organization [facility] Address [address] [place] [address]- Care Team Providers Name Role Phone Constanza LOPEZ, Fernando Mitchell Primary Care Physician Encounter [facility] Date(s): 10/01/21 - 10/31/[address] [address] Attending Physician: Tyree Walker Admitting Physician: AdmTyree carl Referring Physician: AdmtrTyree Allergies, Adverse Reactions, Alerts Substance Reaction Severity [...] EDT Start Date: 04/25/20 Status: OrderedBIPAP ST 16 rate 12 with 3.5 L O2 with [...] 04/25/20 11:53:00 EDT Start Date: 04/25/20 Status: [id number] Medium Air Touch mask F20 Medium Air [...] tablet See Instructions, 1 tablet By Mouth mon,,thurs and sat, 0 Refills, Maintenance, 03/28/15 13:29:29, Tablet Start Date: 03/28/15 Status: Ordered Problem List Condition Effective Dates Status Health Status Informant Sleep-related Active hypoventilation(Confirmed) 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
--- OUTSIDE RECORDS SUMMARY | 2022-07-09 16:21 | XMS_ITS | Continuity of Care Document ---
:1945 Author Organization [facility] Address [address] [place] [address]- Care Team Providers Name Role Phone Not on Staff, PCP Primary Care Physician Unavailable Encounter [facility] Date(s): 05/03/20 - 08/31/[address] [address] Attending Physician: Akash Armenta MD Admitting Physician: [...] 0, Maintenance, use overnight and naps from [facility], 10/21/17 10:38:31 EDT, Compound Start Date: 10/21/17 [...] 04/25/20 11:53:00 EDT Start Date: 04/25/20 Status: [id number] Medium Air Touch mask F20 Medium Air [...] tablet See Instructions, 1 tablet By Mouth mon,tu, and sat, 0 Refills, Maintenance, 03/28/15 13:29:29, Tablet Start Date: 03/28/15 Status: Ordered Problem List Condition Effective Dates Status Health Status Informant Sleep-related Active hypoventilation(Confirmed) 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
--- OUTSIDE RECORDS SUMMARY | 2022-07-09 16:21 | XMS_ITS | Continuity of Care Document ---
:1945 Author Organization [facility] Address [address] [place] [address]- Care Team Providers Name Role Phone Constanza LOPEZ, Fernando Mitchell Primary Care Physician Encounter [facility] Date(s): 04/08/21 - 05/08/[address] [address] Allergies, Adverse Reactions, Alerts Substance Reaction [...] EDT Start Date: 04/25/20 Status: OrderedBIPAP ST 10/05 rate 12 with 3.5 L O2 with heated humidification BIPAP ST 16/10 rate 12 with 3.5 L O2 with heated humidification, See Instructions, # 1 each, Refills0, Tot. 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
--- OUTSIDE RECORDS SUMMARY | 2022-07-09 16:21 | XMS_ITS | Continuity of Care Document ---
:1945 Author Organization [facility] Address [address] [place] [address]- Care Team Providers Name Role Phone Not on Staff, PCP Primary Care Physician Unavailable Encounter [facility] Date(s): 08/06/20 - 09/05/[address] [address] Attending Physician: Tyree Walker Admitting Physician: Tyree Walker Referring Physician: AdmtrTyree Allergies, Adverse Reactions, Alerts [...] 04/25/20 11:53:00 EDT Start Date: 04/25/20 Status: [id number] Medium Air Touch mask F20 Medium Air [...]
--- OUTSIDE RECORDS SUMMARY | 2022-07-09 16:21 | XMS_ITS | Continuity of Care Document ---
:1945 Author Organization [facility] Address [address] [place] [address]- Care Team Providers Name Role Phone Not on Staff, PCP Primary Care Physician Unavailable Encounter [facility] Date(s): 07/28/19 - 11/25/19 [facility] [address] [address] [facility] Attending Physician: Akash Armenta MD Admitting Physician: [...] Maintenance, use overnight and naps from [facility], 10/21/17 10:38:31 EDT, Compound Start Date: 10/21/17 [...] 02/17/17 12:56:06, Solution Start Date: 02/17/17 Status: [id number] Medium Air Touch mask F20 Medium Air [...] tablet See Instructions, 1 tablet By Mouth mon,, and sat, 0 Refills, Maintenance, 03/28/15 13:29:29, Tablet Start Date: 03/28/15 Status: Ordered Problem List Condition Effective Dates Status Health Status Informant Sleep-related Active hypoventilation(Confirmed) 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
--- OUTSIDE RECORDS SUMMARY | 2022-07-09 16:21 | XMS_ITS | Continuity of Care Document ---
:1945 Author Organization [facility] Address [address] [place] [address]- Care Team Providers Name Role Phone Not on Staff, PCP Primary Care Physician Unavailable [place] [facility] Date(s): 02/21/20 - 03/22/20 [facility] [address] [address]- [facility] Allergies, Adverse Reactions, Alerts Substance Reaction Severity [...] 02/17/17 12:56:06, Solution Start Date: 02/17/17 Status: [id number] Medium Air Touch mask F20 Medium Air [...]
--- OUTSIDE RECORDS SUMMARY | 2022-07-09 16:21 | XMS_ITS | Continuity of Care Document ---
:1945 Author Organization [facility] Address [address] [place] [address]- Care Team Providers Name Role Phone Not on Staff, PCP Primary Care Physician Unavailable Encounter [facility] [place] Date(s): 12/26/19 - 01/25/20 [facility] [address] [address] [facility] Attending Physician: Tyree Walker Admitting Physician: AdmtrTyree Referring Physician: Admtr Ar8 Allergies, Adverse Reactions, Alerts Substance Reaction Severity [...] 02/17/17 12:56:06, Solution Start Date: 02/17/17 Status: [id number] Medium Air Touch mask F20 Medium Air [...]
--- OUTSIDE RECORDS SUMMARY | 2022-07-09 16:22 | XMS_ITS | Continuity of Care Document ---
:1945 Author Organization [facility] Address [address] [place] [address]- Care Team Providers Name Role Phone Fernando Apodaca MD Primary Care Physician Encounter [facility] Date(s): 06/11/21 - 10/31/[address] [address] Attending Physician: Akash Armenta MD Admitting Physician: Akash Armenta MD Referring Physician: Fernando Apodaca MD Allergies, Adverse Reactions, Alerts Substance Reaction [...] EDT Start Date: 04/25/20 Status: OrderedBIPAP ST 1610 rate 12 with 3.5 L O2 with heated humidification BIPAP ST 16/10 rate 12 with 3.5 L O2 with heated humidification, See Instructions, # 1 each, Refills0, Tot. 

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
[2022-07-09 18:00] VITALS: BP 128/77; PULSE 107; RESP 16; TEMP 36.3; O2SAT 93
--- NOTE | 2022-07-09 18:27 | PC.NURSE ---
Pt arrived to the floor at 1720 via wheelchair from the ED. Pt alert and oriented X4, reports depression and anxiety, a lot . Pt calm, cooperative. Patient signed admission paperwork.
[2022-07-09] MEDS: FLUoxetine HCl 10 MG CAPSULE PO (20:40)
[2022-07-09] MEDS: LORazepam 1 MG TABLET PO (20:43)
[2022-07-09] MEDS: Melatonin 3 MG TABLET 9 MG PO (20:43)
[2022-07-09] MEDS: traZODone HCL 50 MG TABLET PO (20:51)
[2022-07-10] MEDS: Nystatin Powder 15 GM BOTTLE 1 APPL TOPICAL ×3 (02:28→22:08)
[2022-07-10 06:00] VITALS: BP 140/66; PULSE 89; RESP 16; TEMP 36.7; O2SAT 92
[2022-07-10] MEDS: Omeprazole 20 MG CAPSULE.DR PO (06:41)
[2022-07-10 08:41] VITALS: BP 128/77; PULSE 107; O2SAT 93
[2022-07-10 08:56] LABS: Estimated Average Glucose 103 mg/dL; Hemoglobin A1c % 5.2 %
[2022-07-10 09:23] LABS: Cholesterol 192 mg/dL; Free T4 (Free Thyroxine) 1.11 ng/dL (0.71-1.85); HDL Cholesterol 42 mg/dL; LDL Cholesterol Calculated 124 mg/dl; Thyroid Stimulating Hormone 1.08 uIU/mL (0.32-4.0); Triglycerides 132 mg/dL
[2022-07-10 09:36] LABS: Folate 16.4 ng/mL (> or = 4.0); Vitamin B12 343 pg/mL (200-900)
[2022-07-10] MEDS: Gabapentin 300 MG CAPSULE 900 MG PO ×3 (10:21→21:26)
[2022-07-10] MEDS: FLUoxetine HCl 10 MG CAPSULE 15 MG PO (10:21)
[2022-07-10] MEDS: Acetaminophen 325 MG TABLET 975 MG PO ×2 (10:22→14:47)
[2022-07-10] MEDS: Apixaban 2.5 MG TABLET PO ×2 (10:23→22:07)
[2022-07-10] MEDS: Torsemide 20 MG TABLET PO ×2 (10:23→21:27)
[2022-07-10] MEDS: Docusate Sodium 100 MG CAPSULE PO ×2 (10:23→21:28)
[2022-07-10] MEDS: Multivitamin TABLET 1 TAB PO (10:23)
[2022-07-10] MEDS: Cholecalciferol (Vitamin D3) 25 MCG TABLET 50 MCG PO (14:47)
[2022-07-10] MEDS: Ascorbic Acid 500 MG TABLET 1000 MG PO (14:48)
--- NOTE | 2022-07-10 17:33 | HO.PSYCHPN ---
Subjective Subjective Date of Service: 07/10/22 Reason For Visit: SI, depression Interim History: Discussed with team. Spoke with pt, says she slept pretty good last night, didnt wake up until 5:30am. thinks trazodone helped her last night. Says she had a great day, I knew i had to make my daughter happy. Somewhat tearful at times. Participated in groups. Spoke with pt's daughter who brought in updated med list, pt's olanzapine had actually been discontinued recently and she was started on abilify 5 mg, however will d/c for similar reasons as olanzapine i.e. pt does not meet criteria for bipolar depression, no psychotic sx, potential metabolic SE. Mental Status Exam Mental Status Exam Narrative: A&O. Obese, hospital attire, ambulates in wheelchair, stallings cath, bilateral leg compression device. Good eye contact, attentive. No Tics or Tremors. No abnormal involuntary movements. Calm, cooperative, engaged. Non-pressured speech, spontaneous with regular rate and rhythm, normal volume and prosody. No prolonged speech latency or dysarthria. Mood is ?okay,? affect is tearful at times. Denies SI/SIB/HI upon inquiry. Denies A/VH or delusional thought content. Thoughts are coherent, organized. No known cognitive or memory impairment. Insight/ Judgment fair and adequate. Diagnostics Vital Signs (24Hr): Vital Signs - 24 hr 07/09/22 18:00 07/10/22 08:41 07/10/22 06:00 Temperature 97.4 F 98.0 F Pulse Rate 107 H 107 H 89 Respiratory Rate 16 16 Blood Pressure 128/77 128/77 140/66 H Pulse Oximetry 93 93 92 Oxygen Delivery Method Room Air Room Air BMI result Body Mass Index 51.3 Labs Results: 07/07/22 23:59 07/07/22 23:59 Labs: Laboratory Results - last 48 hr 07/10/22 07/10/22 07/10/22 08:23 08:23 08:23 Estimat Average Glucose 103 Hemoglobin A1c % 5.2 Magnesium 2.0 Triglycerides 132 Cholesterol 192 LDL Cholesterol, Calc 124 HDL Cholesterol 42 Vitamin B12 343 Folate 16.4 TSH 1.08 Free T4 1.11 Medications Medications Current Medications Acetaminophen (Acetaminophen 325 Mg Tablet) 975 mg PO TID ANSON Last Admin: 07/10/22 14:47 Dose: 975 mg Al Hydroxide/Mg Hydroxide (Magnesium Hydrox/Alum Hydrox 30 Ml Oral.Susp) 30 ml PO Q6H PRN PRN Reason: Heartburn/Nausea Apixaban (Apixaban 2.5 Mg Tablet) 2.5 mg PO BID [facility] Last Admin: 07/10/22 10:23 Dose: 2.5 mg Ascorbic Acid (Ascorbic Acid 500 Mg Tablet) 1,000 mg PO DAILY@1200 [facility] Last Admin: 07/10/22 14:48 Dose: 1,000 mg Docusate Sodium (Docusate Sodium 100 Mg Capsule) 100 mg PO BID [facility] Last Admin: 07/10/22 10:23 Dose: 100 mg Fluoxetine HCl (Fluoxetine Hcl 10 Mg Capsule) 10 mg PO BEDTIME [facility] Last Admin: 07/09/22 20:40 Dose: 10 mg Fluoxetine HCl (Fluoxetine Hcl 10 Mg Capsule) 15 mg PO DAILY [facility] Last Admin: 07/10/22 10:21 Dose: 15 mg Gabapentin (Gabapentin 300 Mg Capsule) 900 mg PO TID [facility] Last Admin: 07/10/22 14:47 Dose: 900 mg Hydrocortisone (Hydrocortisone 2.5 % Rectal Cr 30 Gm Tube) 1 appl [place] BID [facility] Last Admin: 07/10/22 10:23 Dose: Not Given Hydroxyzine HCl (Hydroxyzine Hcl 25 Mg Tablet) 25 mg PO Q6H PRN PRN Reason: Anxiety Lidocaine (Lidocaine 5 % Ointment 35 Gm) 1 appl TOPICAL Q6H PRN; Protocol PRN Reason: moderate pain Lorazepam (Lorazepam 1 Mg Tablet) 1 mg PO BEDTIME [facility] Last Admin: 07/09/22 20:43 Dose: 1 mg Lorazepam (Lorazepam 0.5 Mg Tablet) 0.5 mg PO BID PRN PRN Reason: Anxiety Magnesium Hydroxide (Milk Of Magnesia 30 Ml Oral.Susp) 30 ml PO DAILY PRN PRN Reason: Constipation Melatonin (Melatonin 3 Mg Tablet) 9 mg PO BEDTIME [facility] Last Admin: 07/09/22 20:43 Dose: 9 mg Multivitamins/Vitamin C (Multivitamin Tablet) 1 tab PO DAILY [facility] Last Admin: 07/10/22 10:23 Dose: 1 tab Non-Formulary Medication (Naltrexone) 4.5 mg PO DAILY [facility] Nystatin (Nystatin Powder 15 Gm Bottle) 1 appl TOPICAL BID [facility] Last Admin: 07/10/22 10:23 Dose: 1 appl Omeprazole (Omeprazole 20 Mg Capsule.Dr) 20 mg PO DAILY@0630 [facility] Last Admin: 07/10/22 06:41 Dose: 20 mg Pharmacy Consult (Consult Rx Perform Med Rec) 1 each MISCELLANE ONCE PRN PRN Reason: Consult order Senna (Sennosides 8.6 Mg Tablet) 17.2 mg PO BEDTIME [facility] Last Admin: 07/09/22 20:44 Dose: Not Given Torsemide (Torsemide 20 Mg Tablet) 20 mg PO BID [facility]; Protocol Last Admin: 07/10/22 10:23 Dose: 20 mg Trazodone HCl (Trazodone Hcl 50 Mg Tablet) 50 mg PO BEDTIME PRN PRN Reason: insomnia Last Admin: 07/09/22 20:51 Dose: 50 mg Vitamin D (Cholecalciferol (Vitamin D3) 25 Mcg Tablet) 50 mcg PO DAILY@1200 [facility] Last Admin: 07/10/22 14:47 Dose: 50 mcg Allergies Allergies Allergy/AdvReac Type Severity Reaction Status Date / Time adhesive tape [ADHESIVE TAPE] Allergy Unknown RASH Verified 07/07/22 22:06 penicillin V Allergy Unknown Unknown Verified 07/07/22 22:06 Penicillins [PCN] Allergy Unknown HIVES Verified 07/07/22 22:06 Sulfa (Sulfonamide Allergy Unknown HIVES Verified 07/07/22 22:06 Antibiotics) [SULFA(SULFONAMIDE ANTIBIOTICS)] sulfacetamide Allergy Unknown Unknown Verified 07/07/22 22:06 adhesive tape Allergy Unknown Unknown Uncoded 07/07/22 22:06 Assessment & Plan Assessment & Plan (1) MDD (major depressive disorder), recurrent episode, moderate: Status: Acute Code(s): F33.1 - Major depressive disorder, recurrent, moderate (2) WINSTON (generalized anxiety disorder): Status: Acute Code(s): F41.1 - Generalized anxiety disorder (3) Sleep apnea with use of continuous positive airway pressure (CPAP): Status: Acute Code(s): G47.30 - Sleep apnea, unspecified (4) Borderline personality disorder: Status: Acute Code(s): F60.3 - Borderline personality disorder (5) Post traumatic stress disorder (PTSD): Status: Acute Code(s): F43.10 - Post-traumatic stress disorder, unspecified Plan Tasneem is a 76 y.o. female who carries a dx of MDD recurrent, WINSTON, PTSD, and BPD. Pt presented [place] [facility] on 07/07/22 after she disclosed to her daughter suicidal thoughts and passive plan to drink bleach. Pt has co-morbid medical issues of bilateral LE lymphedema, ERUM with CPAP, atrial fib, CHF, CKD, carpal tunnel, arthritis/ osteoarthritis in knees (?bone on bone? pain, hx of rotator cuff tear. Receives cortisol inj for pain relief and takes gabapentin. Utox positive for cannabis. Denies ETOH abuse. Hx of SA by intentional OD requiring hospitalization 01/06/2021, dispo was to [facility]. Remote hx of IPLOC at [facility]. Plan: Pt declines hospital CPAP, will have daughter bring her home CPAP in tomorrow. Will not make other changes to sleep, as pt says her middle of night awakenings are new and it would help to monitor this on the unit once CPAP is here. Will d/c olanzapine 2.5 mg BID as pt denies benefit, daughter agrees, has been wt gaining. Pt meets criteria for depression with BPD, will discuss trial on lamictal. May also consider switching lorazepam to clonazepam due to loss of efficacy for insomnia and anxiety over time. Will maintain fluoxetine dose, however unclear why this is divided. Daughter will provide past med list and will obtain collateral info from OP providers prior to adjusting antidepressant. 07/10: start lamictal 25 mg HS for mood stability, reviewed risks and benefits including SJS. Will change fluoxetine to once daily dosing. 1:1 safety checks due to stallings cath, CV Monitor response to medications. Monitor for safety in the milieu. Discharge on stabilization. Patient seen. Chart reviewed. Discussed with team. Obtain collateral contact info?as needed I spent minutes with the patient and/or on the patient floor today, greater than?50% of which was spent counseling/coordinating care. Patient educated on: diagnosis, medication risk/benefits and therapeutic strategies Reason for contiued inpatient stay Substantial Risk for: harm to self and med/psych decompensation Time Spent With Patient Time: Total time managing care of this patient today ____ minutes.
[2022-07-10 18:00] VITALS: BP 143/58; PULSE 91; RESP 20; TEMP 36.2; O2SAT 96
[2022-07-10] MEDS: Melatonin 3 MG TABLET 9 MG PO (21:24)
[2022-07-10] MEDS: lamoTRIgine 25 MG TABLET PO (21:25)
[2022-07-10] MEDS: Sennosides 8.6 MG TABLET 17.2 MG PO (21:25)
[2022-07-10] MEDS: LORazepam 1 MG TABLET PO (21:27)
[2022-07-11] MEDS: traZODone HCL 50 MG TABLET PO ×2 (01:08→20:50)
[2022-07-11 06:00] VITALS: BP 116/72; PULSE 102; RESP 16; TEMP 35.1; O2SAT 96
[2022-07-11] MEDS: Acetaminophen 325 MG TABLET 975 MG PO ×2 (06:03→17:21)
[2022-07-11] MEDS: Docusate Sodium 100 MG CAPSULE PO ×2 (08:47→20:51)
[2022-07-11] MEDS: Multivitamin TABLET 1 TAB PO (08:47)
[2022-07-11] MEDS: FLUoxetine HCl 10 MG CAPSULE 15 MG PO (08:48)
[2022-07-11] MEDS: Apixaban 2.5 MG TABLET PO ×2 (08:48→20:50)
[2022-07-11] MEDS: polyethylene glycoL 3350 17 GM POWD.PACK PO (08:49)
[2022-07-11] MEDS: FLUoxetine HCl 10 MG CAPSULE PO (08:49)
[2022-07-11] MEDS: Torsemide 20 MG TABLET PO ×2 (08:50→20:50)
[2022-07-11] MEDS: Gabapentin 300 MG CAPSULE 900 MG PO ×3 (09:19→20:49)
[2022-07-11] MEDS: Cholecalciferol (Vitamin D3) 25 MCG TABLET 50 MCG PO (13:19)
[2022-07-11] MEDS: Ascorbic Acid 500 MG TABLET 1000 MG PO (13:19)
[2022-07-11] MEDS: Nystatin Powder 15 GM BOTTLE 1 APPL TOPICAL ×2 (13:20→23:20)
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
[2022-07-11 19:00] VITALS: BP 119/73; PULSE 100; RESP 18; TEMP 36.7; O2SAT 94
[2022-07-11] MEDS: LORazepam 1 MG TABLET PO (20:50)
[2022-07-11] MEDS: lamoTRIgine 25 MG TABLET PO (20:51)
[2022-07-11] MEDS: Melatonin 3 MG TABLET 9 MG PO (20:52)
[2022-07-11] MEDS: Hydrocortisone 2.5 % Rectal Cr 30 GM TUBE 1 APPL PR (20:59)
[2022-07-11] MEDS: Lidocaine 5 % Ointment 35 GM 1 APPL TOPICAL (20:59)
[2022-07-12] MEDS: Omeprazole 20 MG CAPSULE.DR PO (05:31)
[2022-07-12 06:00] VITALS: BP 119/74; PULSE 84; RESP 18; TEMP 36.6; O2SAT 93
[2022-07-12] MEDS: Acetaminophen 325 MG TABLET 975 MG PO ×3 (06:50→20:21)
[2022-07-12] MEDS: polyethylene glycoL 3350 17 GM POWD.PACK PO (08:46)
[2022-07-12] MEDS: FLUoxetine HCl 10 MG CAPSULE 15 MG PO (08:47)
[2022-07-12] MEDS: Apixaban 2.5 MG TABLET PO ×2 (08:47→21:29)
[2022-07-12] MEDS: Docusate Sodium 100 MG CAPSULE PO ×2 (08:47→21:29)
[2022-07-12] MEDS: Gabapentin 300 MG CAPSULE 900 MG PO ×3 (08:47→21:29)
[2022-07-12] MEDS: FLUoxetine HCl 10 MG CAPSULE PO (08:47)
[2022-07-12] MEDS: Multivitamin TABLET 1 TAB PO (08:47)
[2022-07-12] MEDS: Torsemide 20 MG TABLET PO ×2 (08:47→21:33)
[2022-07-12] MEDS: Lidocaine 5 % Ointment 35 GM 1 APPL TOPICAL ×2 (09:06→21:48)
[2022-07-12] MEDS: Hydrocortisone 2.5 % Rectal Cr 30 GM TUBE 1 APPL PR (09:06)
[2022-07-12] MEDS: hydrOXYzine HCL 25 MG TABLET PO (11:35)
[2022-07-12] MEDS: Cholecalciferol (Vitamin D3) 25 MCG TABLET 50 MCG PO (12:48)
[2022-07-12] MEDS: Ascorbic Acid 500 MG TABLET 1000 MG PO (12:48)
[2022-07-12] MEDS: Nystatin Powder 15 GM BOTTLE 1 APPL TOPICAL ×2 (12:50→20:23)
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
[2022-07-12 18:00] VITALS: BP 103/68; PULSE 96; RESP 16; TEMP 36.2; O2SAT 99
[2022-07-12] MEDS: LORazepam 1 MG TABLET PO (21:30)
[2022-07-12] MEDS: Melatonin 3 MG TABLET 9 MG PO (21:30)
[2022-07-12] MEDS: lamoTRIgine 25 MG TABLET PO (21:30)
[2022-07-12] MEDS: Sennosides 8.6 MG TABLET 17.2 MG PO (21:32)
[2022-07-12] MEDS: traZODone HCL 50 MG TABLET PO (21:35)
[2022-07-13] MEDS: Omeprazole 20 MG CAPSULE.DR PO (06:28)
[2022-07-13] MEDS: Acetaminophen 325 MG TABLET 975 MG PO ×3 (06:55→21:39)
[2022-07-13 07:30] VITALS: BP 144/67; PULSE 83; RESP 16; TEMP 36.6; O2SAT 95
[2022-07-13] MEDS: Torsemide 20 MG TABLET PO ×2 (09:56→21:38)
[2022-07-13] MEDS: FLUoxetine HCl 10 MG CAPSULE 15 MG PO (09:56)
[2022-07-13] MEDS: Multivitamin TABLET 1 TAB PO (10:00)
[2022-07-13] MEDS: Docusate Sodium 100 MG CAPSULE PO ×2 (10:00→21:35)
[2022-07-13] MEDS: Apixaban 2.5 MG TABLET PO ×2 (10:00→21:35)
[2022-07-13] MEDS: Gabapentin 300 MG CAPSULE 900 MG PO ×3 (10:00→21:35)
[2022-07-13] MEDS: FLUoxetine HCl 10 MG CAPSULE PO (10:01)
[2022-07-13] MEDS: polyethylene glycoL 3350 17 GM POWD.PACK PO (10:05)
[2022-07-13] MEDS: LORazepam 0.5 MG TABLET PO (11:57)
[2022-07-13 12:37] VITALS: BP 103/68; PULSE 96; O2SAT 99
--- NOTE | 2022-07-13 13:20 | P.PNPSI_ITS ---
Subjective Subjective Date of Service: 07/13/22 Reason For Visit: SI, depression Subjective Notes: Conditional Voluntary Interim History: Pt reports she slept better in reclining chair. She had PT this morning. She reports she had someone of a difficult morning today. She reports suicidal ideation is fairly new as her quality of life has declined due to medical c onditions. She denies any plan or intent to hurt herself, but reports last year she did have suicide attempt. She denies any physical concerns. Medication Compliance: Yes Side effects from medications: No Attending Groups: No Review of Systems Review of Systems Yes all other systems are reviewed and are negative Mental Status Exam Mental Status Exam Narrative: A&O. Obese, hospital attire, ambulates in wheelchair, stallings cath, bilateral leg compression device. Good eye contact, attentive. No Tics or Tremors. No abnormal involuntary movements. Calm, cooperative, engaged. Non-pressured speech, spontaneous with regular rate and rhythm, normal volume and prosody. No prolong ed speech latency or dysarthria. Mood is ?okay,? affect is tearful at times. Denies SI/SIB/HI upon inquiry. Denies A/VH or delusional thought content. Thoughts are coherent, organized. No known cognitive or memory impairment. Insight/ Judgment fair and adequate. Diagnostics Vital Signs (24Hr): Vital Signs - 24 hr 07/12/22 18:00 07/13/22 12:37 Temperature 97.1 F Pulse Rate 96 96 Respiratory Rate 16 Blood Pressure 103/68 103/68 Pulse Oximetry 99 99 Oxygen Delivery Method Room Air BMI result Body Mass Index 51.3 Labs Results: 07/07/22 23:59 07/07/22 23:59 Medications Medications Current Medications Acetaminophen (Acetaminophen 325 Mg Tablet) 975 mg PO TID PRN PRN Reason: moderate pain Last Admin: 07/13/22 06:55 Dose: 975 mg Al Hydroxide/Mg Hydroxide (Magnesium Hydrox/Alum Hydrox 30 Ml Oral.Susp) 30 ml PO Q6H PRN PRN Reason: Heartburn/Nausea Apixaban (Apixaban 2.5 Mg Tablet) 2.5 mg PO BID [facility] Last Admin: 07/13/22 10:00 Dose: 2.5 mg Ascorbic Acid (Ascorbic Acid 500 Mg Tablet) 1,000 mg PO DAILY@1200 [facility] [place] Last Admin: 07/12/22 12:48 Dose: 1,000 mg Docusate Sodium (Docusate Sodium 100 Mg Capsule) 100 mg PO BID [facility] [place] Last Admin: 07/13/22 10:00 Dose: 100 mg Fluoxetine HCl (Fluoxetine Hcl 10 Mg Capsule) 15 mg PO DAILY [facility] [place] Last Admin: 07/13/22 09:56 Dose: 15 mg Fluoxetine HCl (Fluoxetine Hcl 10 Mg Capsule) 10 mg PO DAILY [facility] [place] Last Admin: 07/13/22 10:01 Dose: 10 mg Gabapentin (Gabapentin 300 Mg Capsule) 900 mg PO TID [facility] [place] Last Admin: 07/13/22 10:00 Dose: 900 mg Hydrocortisone (Hydrocortisone 2.5 % Rectal Cr 30 Gm Tube) 1 appl AL BID [facility] [place] Last Admin: 07/12/22 20:24 Dose: Not Given Hydroxyzine HCl (Hydroxyzine Hcl 25 Mg Tablet) 25 mg PO Q6H PRN PRN Reason: Anxiety Last Admin: 07/12/22 11:35 Dose: 25 mg Lamotrigine (Lamotrigine 25 Mg Tablet) 25 mg PO BEDTIME [facility] [place] Last Admin: 07/12/22 21:30 Dose: 25 mg Lidocaine (Lidocaine 5 % Ointment 35 Gm) 1 appl TOPICAL Q6H PRN; Protocol PRN Reason: moderate pain Last Admin: 07/12/22 21:48 Dose: 1 appl Lorazepam (Lorazepam 1 Mg Tablet) 1 mg PO BEDTIME [facility] [place] Last Admin: 07/12/22 21:30 Dose: 1 mg Lorazepam (Lorazepam 0.5 Mg Tablet) 0.5 mg PO BID PRN PRN Reason: Anxiety Last Admin: 07/13/22 11:57 Dose: 0.5 mg Magnesium Hydroxide (Milk Of Magnesia 30 Ml Oral.Susp) 30 ml PO DAILY PRN PRN Reason: Constipation Melatonin (Melatonin 3 Mg Tablet) 9 mg PO BEDTIME [facility] [place] Last Admin: 07/12/22 21:30 Dose: 9 mg Multivitamins/Vitamin C (Multivitamin Tablet) 1 tab PO DAILY [facility] [place] Last Admin: 07/13/22 10:00 Dose: 1 tab Nystatin (Nystatin Powder 15 Gm Bottle) 1 appl TOPICAL BID [facility] [place] Last Admin: 07/12/22 20:23 Dose: 1 appl Omeprazole (Omeprazole 20 Mg Capsule.Dr) 20 mg PO DAILY@0630 [facility] [place] Last Admin: 07/13/22 06:28 Dose: 20 mg Pharmacy Consult (Consult Rx Perform Med Rec) 1 each MISCELLANE ONCE PRN PRN Reason: Consult order Polyethylene Glycol (Polyethylene Glycol 3350 17 Gm Powd.Pack) 17 gm PO DAILY [facility] [place] Last Admin: 07/13/22 10:05 Dose: 17 gm Potassium Chloride (Potassium Chloride Er 10 Meq Capsule.Er) 10 meq PO DAILY [facility] [place] Last Admin: 07/13/22 09:55 Dose: 10 meq Senna (Sennosides 8.6 Mg Tablet) 17.2 mg PO BEDTIME [facility] [place] Last Admin: 07/12/22 21:32 Dose: 17.2 mg Torsemide (Torsemide 20 Mg Tablet) 20 mg PO BID [facility] [place]; Protocol Last Admin: 07/13/22 09:56 Dose: 20 mg Torsemide (Torsemide 20 Mg Tablet) 20 mg PO DAILY PRN; Protocol PRN Reason: swelling Trazodone HCl (Trazodone Hcl 50 Mg Tablet) 50 mg PO BEDTIME PRN PRN Reason: insomnia Last Admin: 07/12/22 21:35 Dose: 50 mg Vitamin D (Cholecalciferol (Vitamin D3) 25 Mcg Tablet) 50 mcg PO DAILY@1200 [facility] [place] Last Admin: 07/12/22 12:48 Dose: 50 mcg Allergies Allergies Allergy/AdvReac Type Severity Reaction Status Date / Time adhesive tape [ADHESIVE TAPE] Allergy Unknown RASH Verified 07/07/22 22:06 penicillin V Allergy Unknown Unknown Verified 07/07/22 22:06 Penicillins [PCN] Allergy Unknown HIVES Verified 07/07/22 22:06 Sulfa (Sulfonamide Allergy Unknown HIVES Verified 07/07/22 22:06 Antibiotics) [SULFA(SULFONAMIDE ANTIBIOTICS)] sulfacetamide Allergy Unknown Unknown Verified 07/07/22 22:06 Latex, Natural Rubber Allergy Unknown Verified 07/10/22 18:00 adhesive tape Allergy Unknown Unknown Uncoded 07/07/22 22:06 Assessment & Plan Assessment & Plan (1) MDD (major depressive disorder), recurrent episode, moderate: Status: Acute Code(s): F33.1 - Major depressive disorder, recurrent, moderate (2) WINSTON (generalized anxiety disorder): Status: Acute Code(s): F41.1 - Generalized anxiety disorder (3) Sleep apnea with use of continuous positive airway pressure (CPAP): Status: Acute Code(s): G47.30 - Sleep apnea, unspecified (4) Borderline personality disorder: Status: Acute Code(s): F60.3 - Borderline personality disorder (5) Post traumatic stress disorder (PTSD): Status: Acute Code(s): F43.10 - Post-traumatic stress disorder, unspecified Plan Tasneem is a 76 y.o. female who carries a dx of MDD recurrent, WINSTON, PTSD, and BPD. Pt [place] [facility] [place]07[place]22 after she disclosed to her daughter suicidal thoughts and passive plan to drink bleach. Pt has co-morbid medical issues of bilateral LE lymphedema, ERUM with CPAP, atrial fib, CHF, CKD, carpal tunnel, arthritis/ osteoarthritis in knees (?bone on bone? pain, hx of rotator cuff tear. Receives cortisol inj for pain relief and takes gabapentin. Utox positive for cannabis. Denies ETOH abuse. Hx of SA by intentional OD requiring hospitalization 01/06/2021, dispo was to STR. Remote hx of IPLOC at [facility]TU. Plan: Pt declines hospital CPAP, will have daughter bring her home CPAP in tomorrow. Will not make other changes to sleep, as pt says her middle of night awakenings are new and it would help to monitor this on the unit once CPAP is h ere. Will d/c olanzapine 2.5 mg BID as pt denies benefit, daughter agrees, has been wt gaining. Pt meets criteria for depression with BPD, will discuss trial on lamictal. May also consider switching lorazepam to clonazepam due to loss of efficacy for insomnia and anxiety over time. Will maintain fluoxetine dose, however unclear why this is divided. Daughter will provide past med list and will obtain collateral info from OP providers prior to adjusting antidepressant. 07/10: start lamictal 25 mg HS for mood stability, reviewed risks and benefits including SJS. Will change fluoxetine to once daily dosing. 1:1 safety checks due to stallings cath, CV Monitor response to medications. Monitor for safety in the milieu. Discharge on stabilization. Patient seen. Chart reviewed. Discussed with team. Obtain collateral contact info?as needed 07/12/22: Continue current plan of care Ongoing education Focus on coping skills UC negative thus far 07/13 continue current medications. I spent minutes with the patient and/or on the patient floor today, greater than?50% of which was spent counseling/coordinating care. Reason for contiued inpatient stay Substantial Risk for: harm to self Time Spent With Patient Time: Total time managing care of this patient today ____ minutes.
[2022-07-13] MEDS: Ascorbic Acid 500 MG TABLET 1000 MG PO (13:46)
[2022-07-13] MEDS: Cholecalciferol (Vitamin D3) 25 MCG TABLET 50 MCG PO (13:46)
[2022-07-13 18:00] VITALS: BP 115/50; PULSE 78; RESP 17; TEMP 36.2; O2SAT 96
[2022-07-13] MEDS: lamoTRIgine 25 MG TABLET PO (21:36)
[2022-07-13] MEDS: LORazepam 1 MG TABLET PO (21:37)
[2022-07-13] MEDS: Melatonin 3 MG TABLET 9 MG PO (21:38)
[2022-07-13] MEDS: Nystatin Powder 15 GM BOTTLE 1 APPL TOPICAL (21:38)
[2022-07-13] MEDS: traZODone HCL 50 MG TABLET PO (21:39)
[2022-07-13] MEDS: Lidocaine 5 % Ointment 35 GM 1 APPL TOPICAL (21:46)
[2022-07-14] MEDS: Omeprazole 20 MG CAPSULE.DR PO (05:39)
[2022-07-14 06:00] VITALS: BP 99/73; PULSE 104; RESP 16; TEMP 35.6; O2SAT 96
[2022-07-14] MEDS: Docusate Sodium 100 MG CAPSULE PO ×2 (08:20→20:26)
[2022-07-14] MEDS: polyethylene glycoL 3350 17 GM POWD.PACK PO (08:20)
[2022-07-14] MEDS: Multivitamin TABLET 1 TAB PO (08:20)
[2022-07-14] MEDS: FLUoxetine HCl 10 MG CAPSULE 15 MG PO (08:21)
[2022-07-14] MEDS: Torsemide 20 MG TABLET PO ×2 (08:21→20:36)
[2022-07-14] MEDS: FLUoxetine HCl 10 MG CAPSULE PO (08:21)
[2022-07-14] MEDS: Gabapentin 300 MG CAPSULE 900 MG PO ×3 (08:22→20:27)
[2022-07-14] MEDS: Apixaban 2.5 MG TABLET PO ×2 (08:22→20:26)
[2022-07-14] MEDS: Acetaminophen 325 MG TABLET 975 MG PO ×2 (08:25→20:30)
[2022-07-14] MEDS: LORazepam 0.5 MG TABLET PO (10:42)
--- NOTE | 2022-07-14 11:06 | P.PNPSI_ITS ---
Subjective Subjective Date of Service: 07/14/22 Reason For Visit: SI, depression Subjective Notes: Conditional Voluntary Interim History: Pt tearful stating she has a dark cloud over her when describing depressed mood. She continues to report suicidal ideation, no specific plan or intent a this time but states that she wishes God takes her with her. She reports her physical health has significantly declined and her quality of life not good. She has worked with PT and PT has recommended short rehab- after discharged, however, pt states she is very depressed and does not feel ready to be discharge. She finds ativan helpful for anxious mood. New to prozac, so wants to see how she does prior to changing it. Medication Compliance: Yes Review of Systems Review of Systems Yes all other systems are reviewed and are negative Mental Status Exam Mental Status Exam Narrative: A&O. Obese, hospital attire, ambulates in wheelchair, stallings cath, bilateral leg compression device. Good eye contact, attentive. No Tics or Tremors. No abnormal involuntary movements. Calm, cooperative, engaged. Non-pressured speech, spontaneous with regular rate and rhythm, normal volume and prosody. No prolong ed speech latency or dysarthria. Mood is ?okay,? affect is tearful at times. Denies SI/SIB/HI upon inquiry. Denies A/VH or delusional thought content. Thoughts are coherent, organized. No known cognitive or memory impairment. Insight/ Judgment fair and adequate. Diagnostics Vital Signs (24Hr): Vital Signs - 24 hr 07/13/22 12:37 07/13/22 18:00 07/14/22 06:00 Temperature 97.1 F 96.1 F L Pulse Rate 96 78 104 H Respiratory Rate 17 16 Blood Pressure 103/68 115/50 L 99/73 Pulse Oximetry 99 96 96 Oxygen Delivery Method Room Air Room Air BMI result Body Mass Index 51.3 Labs Results: 07/07/22 23:59 07/07/22 23:59 Medications Medications Current Medications Acetaminophen (Acetaminophen 325 Mg Tablet) 975 mg PO TID PRN PRN Reason: moderate pain Last Admin: 07/14/22 08:25 Dose: 975 mg Al Hydroxide/Mg Hydroxide (Magnesium Hydrox/Alum Hydrox 30 Ml Oral.Susp) 30 ml PO Q6H PRN PRN Reason: Heartburn/Nausea Apixaban (Apixaban 2.5 Mg Tablet) 2.5 mg PO BID [facility] Last Admin: 07/14/22 08:22 Dose: 2.5 mg Ascorbic Acid (Ascorbic Acid 500 Mg Tablet) 1,000 mg PO DAILY@1200 [facility] Last Admin: 07/13/22 13:46 Dose: 1,000 mg Docusate Sodium (Docusate Sodium 100 Mg Capsule) 100 mg PO BID [facility] Last Admin: 07/14/22 08:20 Dose: 100 mg Fluoxetine HCl (Fluoxetine Hcl 10 Mg Capsule) 15 mg PO DAILY [facility] Last Admin: 07/14/22 08:21 Dose: 15 mg Fluoxetine HCl (Fluoxetine Hcl 10 Mg Capsule) 10 mg PO DAILY [facility] Last Admin: 07/14/22 08:21 Dose: 10 mg Gabapentin (Gabapentin 300 Mg Capsule) 900 mg PO TID [facility] Last Admin: 07/14/22 08:22 Dose: 900 mg Hydrocortisone (Hydrocortisone 2.5 % Rectal Cr 30 Gm Tube) 1 appl UT BID [facility] Last Admin: 07/13/22 21:35 Dose: Not Given Hydroxyzine HCl (Hydroxyzine Hcl 25 Mg Tablet) 25 mg PO Q6H PRN PRN Reason: Anxiety Last Admin: 07/12/22 11:35 Dose: 25 mg Lamotrigine (Lamotrigine 25 Mg Tablet) 25 mg PO BEDTIME [facility] Last Admin: 07/13/22 21:36 Dose: 25 mg Lidocaine (Lidocaine 5 % Ointment 35 Gm) 1 appl TOPICAL Q6H PRN; Protocol PRN Reason: moderate pain Last Admin: 07/13/22 21:46 Dose: 1 appl Lorazepam (Lorazepam 1 Mg Tablet) 1 mg PO BEDTIME [facility] Last Admin: 07/13/22 21:37 Dose: 1 mg Lorazepam (Lorazepam 0.5 Mg Tablet) 0.5 mg PO BID PRN PRN Reason: Anxiety Last Admin: 07/14/22 10:42 Dose: 0.5 mg Magnesium Hydroxide (Milk Of Magnesia 30 Ml Oral.Susp) 30 ml PO DAILY PRN PRN Reason: Constipation Melatonin (Melatonin 3 Mg Tablet) 9 mg PO BEDTIME [facility] Last Admin: 07/13/22 21:38 Dose: 9 mg Multivitamins/Vitamin C (Multivitamin Tablet) 1 tab PO DAILY [facility] Last Admin: 07/14/22 08:20 Dose: 1 tab Nystatin (Nystatin Powder 15 Gm Bottle) 1 appl TOPICAL BID [facility] Last Admin: 07/13/22 21:38 Dose: 1 appl Omeprazole (Omeprazole 20 Mg Capsule.Dr) 20 mg PO DAILY@0630 [facility] Last Admin: 07/14/22 05:39 Dose: 20 mg Pharmacy Consult (Consult Rx Perform Med Rec) 1 each MISCELLANE ONCE PRN PRN Reason: Consult order Polyethylene Glycol (Polyethylene Glycol 3350 17 Gm Powd.Pack) 17 gm PO DAILY [facility] Last Admin: 07/14/22 08:20 Dose: 17 gm Potassium Chloride (Potassium Chloride Er 10 Meq Capsule.Er) 10 meq PO DAILY [facility] Last Admin: 07/14/22 08:20 Dose: 10 meq Senna (Sennosides 8.6 Mg Tablet) 17.2 mg PO BEDTIME [facility] Last Admin: 07/13/22 21:38 Dose: Not Given Torsemide (Torsemide 20 Mg Tablet) 20 mg PO BID [facility]; Protocol Last Admin: 07/14/22 08:21 Dose: 20 mg Torsemide (Torsemide 20 Mg Tablet) 20 mg PO DAILY PRN; Protocol PRN Reason: swelling Trazodone HCl (Trazodone Hcl 50 Mg Tablet) 50 mg PO BEDTIME PRN PRN Reason: insomnia Last Admin: 07/13/22 21:39 Dose: 50 mg Vitamin D (Cholecalciferol (Vitamin D3) 25 Mcg Tablet) 50 mcg PO DAILY@1200 [facility] Last Admin: 07/13/22 13:46 Dose: 50 mcg Allergies Allergies Allergy/AdvReac Type Severity Reaction Status Date / Time adhesive tape [ADHESIVE TAPE] Allergy Unknown RASH Verified 07/07/22 22:06 penicillin V Allergy Unknown Unknown Verified 07/07/22 22:06 Penicillins [PCN] Allergy Unknown HIVES Verified 07/07/22 22:06 Sulfa (Sulfonamide Allergy Unknown HIVES Verified 07/07/22 22:06 Antibiotics) [SULFA(SULFONAMIDE ANTIBIOTICS)] sulfacetamide Allergy Unknown Unknown Verified 07/07/22 22:06 Latex, Natural Rubber Allergy Unknown Verified 07/10/22 18:00 adhesive tape Allergy Unknown Unknown Uncoded 07/07/22 22:06 Assessment & Plan Assessment & Plan (1) MDD (major depressive disorder), recurrent episode, moderate: Status: Acute Code(s): F33.1 - Major depressive disorder, recurrent, moderate (2) WINSTON (generalized anxiety disorder): Status: Acute Code(s): F41.1 - Generalized anxiety disorder (3) Sleep apnea with use of continuous positive airway pressure (CPAP): Status: Acute Code(s): G47.30 - Sleep apnea, unspecified (4) Borderline personality disorder: Status: Acute Code(s): F60.3 - Borderline personality disorder (5) Post traumatic stress disorder (PTSD): Status: Acute Code(s): F43.10 - Post-traumatic stress disorder, unspecified Plan Tasneem is a 76 y.o. female who carries a dx of MDD recurrent, WINSTON, PTSD, and BPD. Pt presented to [facility] [place] [place] [facility] on 07/07/22 after she disclosed to her daughter suicidal thoughts and passive plan to drink bleach. Pt has co-morbid medical issues of bilateral LE lymphedema, ERUM with CPAP, atrial fib, CHF, CKD, carpal tunnel, arthritis/ osteoarthritis in knees (?bone on bone? pain, hx of rotator cuff tear. Receives cortisol inj for pain relief and takes gabapentin. Utox positive for cannabis. Denies ETOH abuse. Hx of SA by intentional OD requiring hospitalization 01/06/2021, dispo was to STR. Remote hx of IPLOC at APTU. Plan: Pt declines hospital CPAP, will have daughter bring her home CPAP in [facility]. Will not make other changes to sleep, as pt says her middle of night awakenings are new and it would help to monitor this on the unit once CPAP is here. Will d/c olanzapine 2.5 mg BID as pt denies benefit, daughter agrees, has been wt gaining. Pt meets criteria for depression with BPD, will discuss trial on lamictal. May also consider switching lorazepam to clonazepam due to loss of efficacy for insomnia and anxiety over time. Will maintain fluoxetine dose, however unclear why this is divided. Daughter will provide past med list and will obtain collateral info from OP providers prior to adjusting antidepressant. 07/10: start lamictal 25 mg HS for mood stability, reviewed risks and benefits including SJS. Will change fluoxetine to once daily dosing. 1:1 safety checks due to stallings cath, CV Monitor response to medications. Monitor for safety in the milieu. Discharge on stabilization. Patient seen. Chart reviewed. Discussed with team. Obtain collateral contact info?as needed 07/12/22: Continue current plan of care Ongoing education Focus on coping skills UC negative thus far 07/13 continue current medications. 07/14 continue tx. I spent minutes with the patient and/or on the patient floor today, greater than?50% of which was spent counseling/coordinating care. Reason for contiued inpatient stay Substantial Risk for: harm to self Time Spent With Patient Time: Total time managing care of this patient today ____ minutes.
[2022-07-14] MEDS: Cholecalciferol (Vitamin D3) 25 MCG TABLET 50 MCG PO (14:17)
[2022-07-14] MEDS: Lidocaine 5 % Ointment 35 GM 1 APPL TOPICAL (14:17)
[2022-07-14] MEDS: Ascorbic Acid 500 MG TABLET 1000 MG PO (14:17)
[2022-07-14] MEDS: Hydrocortisone 2.5 % Rectal Cr 30 GM TUBE 1 APPL PR (14:17)
[2022-07-14] MEDS: Nystatin Powder 15 GM BOTTLE 1 APPL TOPICAL ×2 (17:17→20:29)
[2022-07-14 18:00] VITALS: BP 110/58; PULSE 80; RESP 16; TEMP 36.6; O2SAT 97
[2022-07-14] MEDS: LORazepam 1 MG TABLET PO (20:28)
[2022-07-14] MEDS: Melatonin 3 MG TABLET 9 MG PO (20:28)
[2022-07-14] MEDS: lamoTRIgine 25 MG TABLET PO (20:28)
[2022-07-14] MEDS: traZODone HCL 50 MG TABLET PO (20:32)
[2022-07-15 06:00] VITALS: BP 111/60; PULSE 85; RESP 18; TEMP 36.4; O2SAT 96
[2022-07-15] MEDS: Omeprazole 20 MG CAPSULE.DR PO (06:30)
[2022-07-15] MEDS: Acetaminophen 325 MG TABLET 975 MG PO ×2 (06:35→15:55)
[2022-07-15] MEDS: Torsemide 20 MG TABLET PO ×2 (08:04→21:13)
[2022-07-15] MEDS: FLUoxetine HCl 10 MG CAPSULE PO (08:05)
[2022-07-15] MEDS: FLUoxetine HCl 10 MG CAPSULE 15 MG PO (08:05)
[2022-07-15] MEDS: Apixaban 2.5 MG TABLET PO ×2 (08:05→21:14)
[2022-07-15] MEDS: Gabapentin 300 MG CAPSULE 900 MG PO ×3 (08:05→21:13)
[2022-07-15] MEDS: Docusate Sodium 100 MG CAPSULE PO ×2 (08:05→21:13)
[2022-07-15] MEDS: polyethylene glycoL 3350 17 GM POWD.PACK PO (08:09)
[2022-07-15] MEDS: Multivitamin TABLET 1 TAB PO (08:10)
[2022-07-15] MEDS: Ascorbic Acid 500 MG TABLET 1000 MG PO (11:27)
[2022-07-15] MEDS: Cholecalciferol (Vitamin D3) 25 MCG TABLET 50 MCG PO (11:27)
--- NOTE | 2022-07-15 11:56 | P.PNPSI_ITS ---
Subjective Subjective Date of Service: 07/15/22 Reason For Visit: SI, depression Subjective Notes: Conditional Voluntary Interim History: Pt in chair, reports this morning staff told her they leave alone as I was grumpy yesterday. Pt complaints briefly about others not understanding the severity of her depressed mood and how it affects her ability to cooperate with care. She reports passive SI, stating hoping God takes her with him. No plan or intent to harm herself. Per nursing, pt slept through the night, no behavioral concerns. Medication Compliance: Yes Side effects from medications: No Review of Systems Review of Systems Yes all other systems are reviewed and are negative Mental Status Exam Mental Status Exam Narrative: A&O. Obese, hospital attire, ambulates in wheelchair, stallings cath, bilateral leg compression device. Good eye contact, attentive. No Tics or Tremors. No abnormal involuntary movements. Calm, cooperative, engaged. Non-pressured speech, spontaneous with regular rate and rhythm, normal volume and prosody. No prolonged speech latency or dysarthria. Mood is ?okay,? affect is tearful at times. Denies SI/SIB/HI upon inquiry. Denies A/VH or delusional thought content. Thoughts are coherent, organized. No known cognitive or memory impairment. Insight/ Judgment fair and adequate. Diagnostics Vital Signs (24Hr): Vital Signs - 24 hr 07/14/22 18:00 Temperature 97.9 F Pulse Rate 80 Respiratory Rate 16 Blood Pressure 110/58 L Pulse Oximetry 97 Oxygen Delivery Method Room Air BMI result Body Mass Index 51.3 Labs Results: 07/07/22 23:59 07/07/22 23:59 Medications Medications Current Medications Acetaminophen (Acetaminophen 325 Mg Tablet) 975 mg PO TID PRN PRN Reason: moderate pain Last Admin: 07/15/22 06:35 Dose: 975 mg Al Hydroxide/Mg Hydroxide (Magnesium Hydrox/Alum Hydrox 30 Ml Oral.Susp) 30 ml PO Q6H PRN PRN Reason: Heartburn/Nausea Apixaban (Apixaban 2.5 Mg Tablet) 2.5 mg PO BID COUNTS INCLUDE 234 BEDS AT THE [facility] Last Admin: 07/15/22 08:05 Dose: 2.5 mg Ascorbic Acid (Ascorbic Acid 500 Mg Tablet) 1,000 mg PO DAILY@1200 COUNTS INCLUDE 234 BEDS AT THE [facility] Last Admin: 07/15/22 11:27 Dose: 1,000 mg Docusate Sodium (Docusate Sodium 100 Mg Capsule) 100 mg PO BID COUNTS INCLUDE 234 BEDS AT THE [facility] Last Admin: 07/15/22 08:05 Dose: 100 mg Fluoxetine HCl (Fluoxetine Hcl 10 Mg Capsule) 15 mg PO DAILY COUNTS INCLUDE 234 BEDS AT THE [facility] Last Admin: 07/15/22 08:05 Dose: 15 mg Fluoxetine HCl (Fluoxetine Hcl 10 Mg Capsule) 10 mg PO DAILY COUNTS INCLUDE 234 BEDS AT THE [facility] Last Admin: 07/15/22 08:05 Dose: 10 mg Gabapentin (Gabapentin 300 Mg Capsule) 900 mg PO TID COUNTS INCLUDE 234 BEDS AT THE [facility] Last Admin: 07/15/22 08:05 Dose: 900 mg Hydrocortisone (Hydrocortisone 2.5 % Rectal Cr 30 Gm Tube) 1 appl DC BID COUNTS INCLUDE 234 BEDS AT THE [facility] Last Admin: 07/14/22 20:27 Dose: Not Given Hydroxyzine HCl (Hydroxyzine Hcl 25 Mg Tablet) 25 mg PO Q6H PRN PRN Reason: Anxiety Last Admin: 07/12/22 11:35 Dose: 25 mg Lamotrigine (Lamotrigine 25 Mg Tablet) 25 mg PO BEDTIME COUNTS INCLUDE 234 BEDS AT THE [facility] Last Admin: 07/14/22 20:28 Dose: 25 mg Lidocaine (Lidocaine 5 % Ointment 35 Gm) 1 appl TOPICAL Q6H PRN; Protocol PRN Reason: moderate pain Last Admin: 07/14/22 14:17 Dose: 1 appl Lorazepam (Lorazepam 1 Mg Tablet) 1 mg PO BEDTIME COUNTS INCLUDE 234 BEDS AT THE [facility] Last Admin: 07/14/22 20:28 Dose: 1 mg Lorazepam (Lorazepam 0.5 Mg Tablet) 0.5 mg PO BID PRN PRN Reason: Anxiety Last Admin: 07/14/22 10:42 Dose: 0.5 mg Magnesium Hydroxide (Milk Of Magnesia 30 Ml Oral.Susp) 30 ml PO DAILY PRN PRN Reason: Constipation Melatonin (Melatonin 3 Mg Tablet) 9 mg PO BEDTIME COUNTS INCLUDE 234 BEDS AT THE [facility] Last Admin: 07/14/22 20:28 Dose: 9 mg Multivitamins/Vitamin C (Multivitamin Tablet) 1 tab PO DAILY COUNTS INCLUDE 234 BEDS AT THE [facility] Last Admin: 07/15/22 08:10 Dose: 1 tab Nystatin (Nystatin Powder 15 Gm Bottle) 1 appl TOPICAL BID COUNTS INCLUDE 234 BEDS AT THE [facility] Last Admin: 07/14/22 20:29 Dose: 1 appl Omeprazole (Omeprazole 20 Mg Capsule.Dr) 20 mg PO DAILY@0630 COUNTS INCLUDE 234 BEDS AT THE [facility] Last Admin: 07/15/22 06:30 Dose: 20 mg Pharmacy Consult (Consult Rx Perform Med Rec) 1 each MISCELLANE ONCE PRN PRN Reason: Consult order Polyethylene Glycol (Polyethylene Glycol 3350 17 Gm Powd.Pack) 17 gm PO DAILY COUNTS INCLUDE 234 BEDS AT THE [facility] Last Admin: 07/15/22 08:09 Dose: 17 gm Potassium Chloride (Potassium Chloride Er 10 Meq Capsule.Er) 10 meq PO DAILY COUNTS INCLUDE 234 BEDS AT THE [facility] Last Admin: 07/15/22 08:11 Dose: 10 meq Senna (Sennosides 8.6 Mg Tablet) 17.2 mg PO BEDTIME [facility] Last Admin: 07/14/22 20:30 Dose: Not Given Torsemide (Torsemide 20 Mg Tablet) 20 mg PO BID [facility]; Protocol Last Admin: 07/15/22 08:04 Dose: 20 mg Torsemide (Torsemide 20 Mg Tablet) 20 mg PO DAILY PRN; Protocol PRN Reason: swelling Trazodone HCl (Trazodone Hcl 50 Mg Tablet) 50 mg PO BEDTIME PRN PRN Reason: insomnia Last Admin: 07/14/22 20:32 Dose: 50 mg Vitamin D (Cholecalciferol (Vitamin D3) 25 Mcg Tablet) 50 mcg PO DAILY@1200 COUNTS INCLUDE 234 BEDS AT THE [facility] Last Admin: 07/15/22 11:27 Dose: 50 mcg Allergies Allergies Allergy/AdvReac Type Severity Reaction Status Date / Time adhesive tape [ADHESIVE TAPE] Allergy Unknown RASH Verified 07/07/22 22:06 penicillin V Allergy Unknown Unknown Verified 07/07/22 22:06 Penicillins [PCN] Allergy Unknown HIVES Verified 07/07/22 22:06 Sulfa (Sulfonamide Allergy Unknown HIVES Verified 07/07/22 22:06 Antibiotics) [SULFA(SULFONAMIDE ANTIBIOTICS)] sulfacetamide Allergy Unknown Unknown Verified 07/07/22 22:06 Latex, Natural Rubber Allergy Unknown Verified 07/10/22 18:00 adhesive tape Allergy Unknown Unknown Uncoded 07/07/22 22:06 Assessment & Plan Assessment & Plan (1) MDD (major depressive disorder), recurrent episode, moderate: Status: Acute Code(s): F33.1 - Major depressive disorder, recurrent, moderate (2) WINSTON (generalized anxiety disorder): Status: Acute Code(s): F41.1 - Generalized anxiety disorder (3) Sleep apnea with use of continuous positive airway pressure (CPAP): Status: Acute Code(s): G47.30 - Sleep apnea, unspecified (4) Borderline personality disorder: Status: Acute Code(s): F60.3 - Borderline personality disorder (5) Post traumatic stress disorder (PTSD): Status: Acute Code(s): F43.10 - Post-traumatic stress disorder, unspecified Plan Tasneem is a 76 y.o. female who carries a dx of MDD recurrent, WINSTON, PTSD, and BPD. Pt presented to [facility] on 07/07/22 after she disclosed to her daughter suicidal thoughts and passive plan to drink bleach. Pt has co-morbid medical issues of bilateral LE lymphedema, ERUM with CPAP, atrial fib, CHF, CKD, carpal tunnel, arthritis/ osteoarthritis in knees (?bone on bone? pain, hx of rotator cuff tear. Receives cortisol inj for pain relief and takes gabapentin. Utox positive for cannabis. Denies ETOH abuse. Hx of SA by intentional OD requiring hospitalization 01/06/2021, dispo was to STR. Remote hx of IPLOC at [facility]. Plan: Pt declines hospital CPAP, will have daughter bring her home CPAP in t omorrow. Will not make other changes to sleep, as pt says her middle of night awakenings are new and it would help to monitor this on the unit once CPAP is here. Will d/c olanzapine 2.5 mg BID as pt denies benefit, daughter agrees, has been wt gaining. Pt meets criteria for depression with BPD, will discuss trial on lamictal. May also consider switching lorazepam to clonazepam due to loss of efficacy for insomnia and anxiety over time. Will maintain fluoxetine dose, however unclear why this is divided. Daughter will provide past med list and will obtain collateral info from OP providers prior to adjusting antidepressant. 07/10: start lamictal 25 mg HS for mood stability, reviewed risks and benefits including SJS. Will change fluoxetine to once daily dosing. 1:1 safety checks due to stallings cath, CV Monitor response to medications. Monitor for safety in the milieu. Discharge on stabilization. Patient seen. Chart reviewed. Discussed with team. Obtain collateral contact info?as needed 07/12/22: Continue current plan of care Ongoing education Focus on coping skills UC negative thus far 07/13 continue current medications. 07/14 continue tx. 07/15 continue tx. I spent minutes with the patient and/or on the patient floor today, greater than?50% of which was spent counseling/coordinating care. Reason for contiued inpatient stay Substantial Risk for: inability to function Time Spent With Patient Time: Total time managing care of this patient today ____ minutes.
[2022-07-15] MEDS: Nystatin Powder 15 GM BOTTLE 1 APPL TOPICAL (13:10)
[2022-07-15] MEDS: Hydrocortisone 2.5 % Rectal Cr 30 GM TUBE 1 APPL PR (13:10)
[2022-07-15 18:00] VITALS: BP 136/67; PULSE 79; RESP 20; TEMP 36.1; O2SAT 97
[2022-07-15] MEDS: lamoTRIgine 25 MG TABLET PO (21:13)
[2022-07-15] MEDS: Melatonin 3 MG TABLET 9 MG PO (21:13)
[2022-07-15] MEDS: LORazepam 1 MG TABLET PO (21:14)
[2022-07-15] MEDS: traZODone HCL 50 MG TABLET PO (21:36)
[2022-07-16] MEDS: LORazepam 0.5 MG TABLET PO (03:52)
[2022-07-16 06:00] VITALS: BP 115/55; PULSE 75; RESP 16; TEMP 36.6; O2SAT 93
[2022-07-16] MEDS: Omeprazole 20 MG CAPSULE.DR PO (06:12)
[2022-07-16 10:14] VITALS: BP 136/67; PULSE 79; O2SAT 97
[2022-07-16] MEDS: FLUoxetine HCl 10 MG CAPSULE 30 MG PO (10:23)
[2022-07-16] MEDS: Docusate Sodium 100 MG CAPSULE PO (10:23)
[2022-07-16] MEDS: Apixaban 2.5 MG TABLET PO ×2 (10:23→20:32)
[2022-07-16] MEDS: Multivitamin TABLET 1 TAB PO (10:23)
[2022-07-16] MEDS: Gabapentin 300 MG CAPSULE 900 MG PO ×3 (10:23→20:31)
[2022-07-16] MEDS: polyethylene glycoL 3350 17 GM POWD.PACK PO (10:25)
[2022-07-16] MEDS: Nystatin Powder 15 GM BOTTLE 1 APPL TOPICAL (10:26)
[2022-07-16] MEDS: Hydrocortisone 2.5 % Rectal Cr 30 GM TUBE 1 APPL PR (10:26)
[2022-07-16] MEDS: Torsemide 20 MG TABLET PO ×2 (10:27→20:31)
[2022-07-16] MEDS: Acetaminophen 325 MG TABLET 975 MG PO ×2 (10:29→20:30)
--- NOTE | 2022-07-16 14:35 | HO.PSYCHPN ---
Subjective Subjective Date of Service: 07/16/22 Reason For Visit: SI, depression Subjective Notes: Conditional Voluntary Interim History: Pt reports she continues to feel depressed. She reports passive suicidal thoughts, but denies any plan or intent to harm herself. Per nursing, no behavioral concerns. Per risk management- pt can be without 1:1 for equipment (catheter). Per nursing, pt did have some difficulty sleeping through the night but able to get some sleep. Pt reports bloating- added simethicone. Medication Compliance: Yes Side effects from medications: No Review of Systems Review of Systems Yes all other systems are reviewed and are negative Mental Status Exam Mental Status Exam Narrative: A&O. Obese, hospital attire, ambulates in wheelchair, stallings cath, bilateral leg compression device. Good eye contact, attentive. No Tics or Tremors. No abnormal involuntary movements. Calm, cooperative, engaged. Non-pressured speech, spontaneous with regular rate and rhythm, normal volume and prosody. No prolonged speech latency or dysarthria. Mood is ?okay,? affect is tearful at times. Denies SI/SIB/HI upon inquiry. Denies A/VH or delusional thought content. Thoughts are coherent, organized. No known cognitive or memory impairment. Insight/ Judgment fair and adequate. Diagnostics Vital Signs (24Hr): Vital Signs - 24 hr 07/16/22 10:14 07/16/22 21:29 Temperature 97.2 F Pulse Rate 79 74 Respiratory Rate 18 Blood Pressure 136/67 137/57 L Pulse Oximetry 97 97 Oxygen Delivery Method Room Air BMI result Body Mass Index 51.3 Labs Results: 07/07/22 23:59 07/07/22 23:59 Medications Medications Current Medications Acetaminophen (Acetaminophen 325 Mg Tablet) 975 mg PO TID PRN PRN Reason: moderate pain Last Admin: 07/16/22 20:30 Dose: 975 mg Al Hydroxide/Mg Hydroxide (Magnesium Hydrox/Alum Hydrox 30 Ml Oral.Susp) 30 ml PO Q6H PRN PRN Reason: Heartburn/Nausea Apixaban (Apixaban 2.5 Mg Tablet) 2.5 mg PO BID [facility] Last Admin: 07/16/22 20:32 Dose: 2.5 mg Ascorbic Acid (Ascorbic Acid 500 Mg Tablet) 1,000 mg PO DAILY@1200 [facility] Last Admin: 07/16/22 16:06 Dose: 1,000 mg Fluoxetine HCl (Fluoxetine Hcl 10 Mg Capsule) 30 mg PO DAILY [facility] Last Admin: 07/16/22 10:23 Dose: 30 mg Gabapentin (Gabapentin 300 Mg Capsule) 900 mg PO TID [facility] Last Admin: 07/16/22 20:31 Dose: 900 mg Hydrocortisone (Hydrocortisone 2.5 % Rectal Cr 30 Gm Tube) 1 appl MS BID [facility] Last Admin: 07/16/22 20:32 Dose: Not Given Hydroxyzine HCl (Hydroxyzine Hcl 25 Mg Tablet) 25 mg PO Q6H PRN PRN Reason: Anxiety Last Admin: 07/16/22 23:23 Dose: 25 mg Lamotrigine (Lamotrigine 25 Mg Tablet) 25 mg PO BEDTIME [facility] Last Admin: 07/16/22 20:32 Dose: 25 mg Lidocaine (Lidocaine 5 % Ointment 35 Gm) 1 appl TOPICAL Q6H PRN; Protocol PRN Reason: moderate pain Last Admin: 07/17/22 00:14 Dose: 1 appl Lorazepam (Lorazepam 1 Mg Tablet) 1 mg PO BEDTIME [facility] Last Admin: 07/16/22 20:32 Dose: 1 mg Lorazepam (Lorazepam 0.5 Mg Tablet) 0.5 mg PO BID PRN PRN Reason: Anxiety Last Admin: 07/16/22 03:52 Dose: 0.5 mg Magnesium Hydroxide (Milk Of Magnesia 30 Ml Oral.Susp) 30 ml PO DAILY PRN PRN Reason: Constipation Melatonin (Melatonin 3 Mg Tablet) 9 mg PO BEDTIME [facility] Last Admin: 07/16/22 20:31 Dose: 9 mg Multivitamins/Vitamin C (Multivitamin Tablet) 1 tab PO DAILY [facility] Last Admin: 07/16/22 10:23 Dose: 1 tab Pt Own (Biotene) 1 each BUCCAL Q6H PRN PRN Reason: Dry Mouth Pt Own (Xylimelts) 1 each BUCCAL Q6H PRN PRN Reason: Dry Mouth Last Admin: 07/16/22 20:41 Dose: 1 each Nystatin (Nystatin Powder 15 Gm Bottle) 1 appl TOPICAL BID [facility] Last Admin: 07/16/22 21:51 Dose: Not Given Omeprazole (Omeprazole 20 Mg Capsule.Dr) 20 mg PO DAILY@0630 [facility] Last Admin: 07/17/22 06:19 Dose: 20 mg Pharmacy Consult (Consult Rx Perform Med Rec) 1 each MISCELLANE ONCE PRN PRN Reason: Consult order Polyethylene Glycol (Polyethylene Glycol 3350 17 Gm Powd.Pack) 17 gm PO DAILY [facility] Last Admin: 07/16/22 10:25 Dose: 17 gm Potassium Chloride (Potassium Chloride Er 10 Meq Capsule.Er) 10 meq PO DAILY [facility] Last Admin: 07/16/22 10:24 Dose: 10 meq Senna/Docusate Sodium (Sennosides/Docusate Sodium Tablet) 1 tab PO BEDTIME [facility] Last Admin: 07/16/22 20:32 Dose: 1 tab Simethicone (Simethicone 80 Mg Tab.Chew) 80 mg PO QIDWMHS PRN PRN Reason: bloating Torsemide (Torsemide 20 Mg Tablet) 20 mg PO BID [facility]; Protocol Last Admin: 07/16/22 20:31 Dose: 20 mg Torsemide (Torsemide 20 Mg Tablet) 20 mg PO DAILY PRN; Protocol PRN Reason: swelling Trazodone HCl (Trazodone Hcl 50 Mg Tablet) 50 mg PO BEDTIME PRN PRN Reason: insomnia Last Admin: 07/16/22 23:23 Dose: 50 mg Vitamin D (Cholecalciferol (Vitamin D3) 25 Mcg Tablet) 50 mcg PO DAILY@1200 [facility] Last Admin: 07/16/22 16:06 Dose: 50 mcg Allergies Allergies Allergy/AdvReac Type Severity Reaction Status Date / Time adhesive tape [ADHESIVE TAPE] Allergy Unknown RASH Verified 07/07/22 22:06 penicillin V Allergy Unknown Unknown Verified 07/07/22 22:06 Penicillins [PCN] Allergy Unknown HIVES Verified 07/07/22 22:06 Sulfa (Sulfonamide Allergy Unknown HIVES Verified 07/07/22 22:06 Antibiotics) [SULFA(SULFONAMIDE ANTIBIOTICS)] sulfacetamide Allergy Unknown Unknown Verified 07/07/22 22:06 Latex, Natural Rubber Allergy Unknown Verified 07/10/22 18:00 adhesive tape Allergy Unknown Unknown Uncoded 07/07/22 22:06 Assessment & Plan Assessment & Plan (1) MDD (major depressive disorder), recurrent episode, moderate: Status: Acute Code(s): F33.1 - Major depressive disorder, recurrent, moderate (2) WINSTON (generalized anxiety disorder): Status: Acute Code(s): F41.1 - Generalized anxiety disorder (3) Sleep apnea with use of continuous positive airway pressure (CPAP): Status: Acute Code(s): G47.30 - Sleep apnea, unspecified (4) Borderline personality disorder: Status: Acute Code(s): F60.3 - Borderline personality disorder (5) Post traumatic stress disorder (PTSD): Status: Acute Code(s): F43.10 - Post-traumatic stress disorder, unspecified Plan Tasneem is a 76 y.o. female who carries a dx of MDD recurrent, WINSTON, PTSD, and BPD. Pt presented to [facility] ED on 07/07/22 after she disclosed to her daughter suicidal thoughts and passive plan to drink bleach. Pt has co-morbid medical issues of bilateral LE lymphedema, ERUM with CPAP, atrial fib, CHF, CKD, carpal tunnel, arthritis/ osteoarthritis in knees (?bone on bone? pain, hx of rotator cuff tear. Receives cortisol inj for pain relief and takes gabapentin. Utox positive for cannabis. Denies ETOH abuse. Hx of SA by intentional OD requiring hospitalization 01/06/2021, dispo was to STR. Remote hx of IPLOC at [facility]TU. Plan: 07/16- increase prozac to 30mg po daily. add simethicone for bloating. Patient educated on: diagnosis Informed Consent: understands Reason for contiued inpatient stay Substantial Risk for: harm to self Time Spent With Patient Time: Total time managing care of this patient today ____ minutes.
[2022-07-16] MEDS: Cholecalciferol (Vitamin D3) 25 MCG TABLET 50 MCG PO (16:06)
[2022-07-16] MEDS: Ascorbic Acid 500 MG TABLET 1000 MG PO (16:06)
[2022-07-16] MEDS: Melatonin 3 MG TABLET 9 MG PO (20:31)
[2022-07-16] MEDS: Sennosides/Docusate Sodium TABLET 1 TAB PO (20:32)
[2022-07-16] MEDS: lamoTRIgine 25 MG TABLET PO (20:32)
[2022-07-16] MEDS: LORazepam 1 MG TABLET PO (20:32)
[2022-07-16 21:29] VITALS: BP 137/57; PULSE 74; RESP 18; TEMP 36.2; O2SAT 97
--- NOTE | 2022-07-16 21:38 | P.EN_ITS ---
Event Note Date of Service: 07/16/22 Event Note: PATIENT'S CASE REVIEWED WITH NURSING STAFF CHART REVIEWED CASE REVIEWED WITH ABHAY DE NURSE PRACTITIONER THE PATIENT USES CPAP AT NIGHT AND HAS AN INDWELLING CATHETER. PATIENT HAS STATED SHE HAS NOT WANTED TO CONTINUE ON ONE-TO-ONE FEELS IT IS INTRUSIVE AND C OUNTERPRODUCTIVE. PATIENT ADAMANTLY DENIES ANY SELF-HARMING THOUGHTS SEEMS TO HAVE A FAIRLY FULL RANGE OF AFFECT AND ALTHOUGH DEMORALIZED DOES NOT APPEAR TO BE A SUICIDE RISK. PATIENT STATES SHE CAN MAINTAIN HER SAFETY AND APPEARS SAFE ON 5 MINUTE CHECKS DURING THE DAY IN A [place] AND NIGHT WITH HER START CPAP. SAFETY OF THIS SHOULD BE REVIEWED ON A REGULAR BASIS. SUICIDE ASSESSMENTS ARE DONE REGULARLY. Time Spent With Patient Time: Total time managing care of this patient today ____ minutes.
[2022-07-16] MEDS: hydrOXYzine HCL 25 MG TABLET PO (23:23)
[2022-07-16] MEDS: traZODone HCL 50 MG TABLET PO (23:23)
[2022-07-17] MEDS: Lidocaine 5 % Ointment 35 GM 1 APPL TOPICAL (00:14)
[2022-07-17] MEDS: Omeprazole 20 MG CAPSULE.DR PO (06:19)
[2022-07-17 09:30] VITALS: BP 118/54; PULSE 66; RESP 17; TEMP 36.4; O2SAT 92
[2022-07-17] MEDS: polyethylene glycoL 3350 17 GM POWD.PACK PO (09:59)
[2022-07-17] MEDS: Torsemide 20 MG TABLET PO ×2 (10:00→21:33)
[2022-07-17] MEDS: Gabapentin 300 MG CAPSULE 900 MG PO ×3 (10:00→21:33)
[2022-07-17] MEDS: Apixaban 2.5 MG TABLET PO ×2 (10:01→21:32)
[2022-07-17] MEDS: FLUoxetine HCl 10 MG CAPSULE 30 MG PO (10:01)
[2022-07-17] MEDS: Multivitamin TABLET 1 TAB PO (10:01)
[2022-07-17] MEDS: Acetaminophen 325 MG TABLET 975 MG PO ×3 (10:06→21:32)
[2022-07-17] MEDS: Nystatin Powder 15 GM BOTTLE 1 APPL TOPICAL (10:06)
[2022-07-17] MEDS: LORazepam 0.5 MG TABLET PO (12:50)
[2022-07-17] MEDS: Simethicone 80 MG TAB.CHEW PO (13:21)
[2022-07-17] MEDS: Cholecalciferol (Vitamin D3) 25 MCG TABLET 50 MCG PO (13:21)
[2022-07-17] MEDS: Ascorbic Acid 500 MG TABLET 1000 MG PO (13:22)
--- NOTE | 2022-07-17 13:26 | HO.PSYCHPN ---
Subjective Subjective Date of Service: 07/17/22 Reason For Visit: SI, depression Subjective Notes: Conditional Voluntary Interim History: This morning there was family meeting with pt's daughter and [facility]. Pt continues to report that she is depressed. She worries that physically she is not doing well and can't walk. She reports she is afraid of going home like this and not ready to be discharge. Pt continues to report passive SI. No plan or intent. Medication Compliance: Yes Review of Systems Review of Systems Yes all other systems are reviewed and are negative Mental Status Exam Mental Status Exam Narrative: A&O. Obese, hospital attire, ambulates in wheelchair, stallings cath, bilateral leg compression device. Good eye contact, attentive. No Tics or Tremors. No abnormal involuntary movements. Calm, cooperative, engaged. Non-pressured speech, spontaneous with regular rate and rhythm, normal volume and prosody. No prolonged speech latency or dysarthria. Mood is ?okay,? affect is tearful at times. Denies SI/SIB/HI upon inquiry. Denies A/VH or delusional thought content. Thoughts are coherent, organized. No known cognitive or memory impairment. Insight/ Judgment fair and adequate. Diagnostics Vital Signs (24Hr): Vital Signs - 24 hr 07/16/22 21:29 07/17/22 09:30 Temperature 97.2 F 97.5 F Pulse Rate 74 66 Respiratory Rate 18 17 Blood Pressure 137/57 L 118/54 L Pulse Oximetry 97 92 Oxygen Delivery Method Room Air Room Air BMI result Body Mass Index 51.3 Labs Results: 07/07/22 23:59 07/07/22 23:59 Medications Medications Current Medications Acetaminophen (Acetaminophen 325 Mg Tablet) 975 mg PO TID [facility] Last Admin: 07/17/22 16:11 Dose: 975 mg Al Hydroxide/Mg Hydroxide (Magnesium Hydrox/Alum Hydrox 30 Ml Oral.Susp) 30 ml PO Q6H PRN PRN Reason: Heartburn/Nausea Apixaban (Apixaban 2.5 Mg Tablet) 2.5 mg PO BID [facility] Last Admin: 07/17/22 10:01 Dose: 2.5 mg Ascorbic Acid (Ascorbic Acid 500 Mg Tablet) 1,000 mg PO DAILY@1200 [facility] Last Admin: 07/17/22 13:22 Dose: 1,000 mg Bacitracin (Bacitracin Oint 14 Gm Tube) 1 appl TOPICAL DAILY PRN; Protocol PRN Reason: left medial ankle when dressing change Fluoxetine HCl (Fluoxetine Hcl 10 Mg Capsule) 30 mg PO DAILY [facility] Last Admin: 07/17/22 10:01 Dose: 30 mg Gabapentin (Gabapentin 300 Mg Capsule) 900 mg PO TID [facility] Last Admin: 07/17/22 16:12 Dose: 900 mg Hydrocortisone (Hydrocortisone 2.5 % Rectal Cr 30 Gm Tube) 1 appl DE BID [facility] Last Admin: 07/17/22 10:04 Dose: Not Given Hydroxyzine HCl (Hydroxyzine Hcl 25 Mg Tablet) 25 mg PO Q6H PRN PRN Reason: Anxiety Last Admin: 07/16/22 23:23 Dose: 25 mg Lamotrigine (Lamotrigine 25 Mg Tablet) 25 mg PO BEDTIME [facility] Last Admin: 07/16/22 20:32 Dose: 25 mg Lidocaine (Lidocaine 5 % Ointment 35 Gm) 1 appl TOPICAL Q6H PRN; Protocol PRN Reason: moderate pain Last Admin: 07/17/22 00:14 Dose: 1 appl Lorazepam (Lorazepam 1 Mg Tablet) 1 mg PO BEDTIME [facility] Last Admin: 07/16/22 20:32 Dose: 1 mg Lorazepam (Lorazepam 0.5 Mg Tablet) 0.5 mg PO BID PRN PRN Reason: Anxiety Last Admin: 07/17/22 12:50 Dose: 0.5 mg Magnesium Hydroxide (Milk Of Magnesia 30 Ml Oral.Susp) 30 ml PO DAILY PRN PRN Reason: Constipation Melatonin (Melatonin 3 Mg Tablet) 9 mg PO BEDTIME [facility] Last Admin: 07/16/22 20:31 Dose: 9 mg Multivitamins/Vitamin C (Multivitamin Tablet) 1 tab PO DAILY [facility] Last Admin: 07/17/22 10:01 Dose: 1 tab Pt Own (Biotene) 1 each BUCCAL Q6H PRN PRN Reason: Dry Mouth Last Admin: 07/17/22 13:21 Dose: 1 each Pt Own (Xylimelts) 1 each BUCCAL Q6H PRN PRN Reason: Dry Mouth Last Admin: 07/16/22 20:41 Dose: 1 each Nystatin (Nystatin Powder 15 Gm Bottle) 1 appl TOPICAL BID [facility] Last Admin: 07/17/22 10:06 Dose: 1 appl Omeprazole (Omeprazole 20 Mg Capsule.Dr) 20 mg PO DAILY@0630 [facility] Last Admin: 07/17/22 06:19 Dose: 20 mg Pharmacy Consult (Consult Rx Perform Med Rec) 1 each MISCELLANE ONCE PRN PRN Reason: Consult order Polyethylene Glycol (Polyethylene Glycol 3350 17 Gm Powd.Pack) 17 gm PO DAILY [facility] Last Admin: 07/17/22 09:59 Dose: 17 gm Potassium Chloride (Potassium Chloride Er 10 Meq Capsule.Er) 10 meq PO DAILY [facility] Last Admin: 07/17/22 10:00 Dose: 10 meq Senna/Docusate Sodium (Sennosides/Docusate Sodium Tablet) 1 tab PO BEDTIME [facility] Last Admin: 07/16/22 20:32 Dose: 1 tab Simethicone (Simethicone 80 Mg Tab.Chew) 80 mg PO QIDWMHS PRN PRN Reason: bloating Last Admin: 07/17/22 13:21 Dose: 80 mg Torsemide (Torsemide 20 Mg Tablet) 20 mg PO BID [facility]; Protocol Last Admin: 07/17/22 10:00 Dose: 20 mg Torsemide (Torsemide 20 Mg Tablet) 20 mg PO DAILY PRN; Protocol PRN Reason: swelling Trazodone HCl (Trazodone Hcl 50 Mg Tablet) 50 mg PO BEDTIME PRN PRN Reason: insomnia Last Admin: 07/16/22 23:23 Dose: 50 mg Vitamin D (Cholecalciferol (Vitamin D3) 25 Mcg Tablet) 50 mcg PO DAILY@1200 [facility] Last Admin: 07/17/22 13:21 Dose: 50 mcg Allergies Allergies Allergy/AdvReac Type Severity Reaction Status Date / Time adhesive tape [ADHESIVE TAPE] Allergy Unknown RASH Verified 07/07/22 22:06 penicillin V Allergy Unknown Unknown Verified 07/07/22 22:06 Penicillins [PCN] Allergy Unknown HIVES Verified 07/07/22 22:06 Sulfa (Sulfonamide Allergy Unknown HIVES Verified 07/07/22 22:06 Antibiotics) [SULFA(SULFONAMIDE ANTIBIOTICS)] sulfacetamide Allergy Unknown Unknown Verified 07/07/22 22:06 Latex, Natural Rubber Allergy Unknown Verified 07/10/22 18:00 adhesive tape Allergy Unknown Unknown Uncoded 07/07/22 22:06 Assessment & Plan Assessment & Plan (1) MDD (major depressive disorder), recurrent episode, moderate: Status: Acute Code(s): F33.1 - Major depressive disorder, recurrent, moderate (2) WINSTON (generalized anxiety disorder): Status: Acute Code(s): F41.1 - Generalized anxiety disorder (3) Sleep apnea with use of continuous positive airway pressure (CPAP): Status: Acute Code(s): G47.30 - Sleep apnea, unspecified (4) Borderline personality disorder: Status: Acute Code(s): F60.3 - Borderline personality disorder (5) Post traumatic stress disorder (PTSD): Status: Acute Code(s): F43.10 - Post-traumatic stress disorder, unspecified Plan Tasneem is a 76 y.o. female who carries a dx of MDD recurrent, WINSTON, PTSD, and BPD. Pt presented to [facility] on 07/07/22 after she disclosed to her daughter suicidal thoughts and passive plan to drink bleach. Pt has co-morbid medical issues of bilateral LE lymphedema, ERUM with CPAP, atrial fib, CHF, CKD, carpal tunnel, arthritis/ osteoarthritis in knees (?bone on bone? pain, hx of rotator cuff tear. Receives cortisol inj for pain relief and takes gabapentin. Utox positive for cannabis. Denies ETOH abuse. Hx of SA by intentional OD requiring hospitalization 01/06/2021, dispo was to [facility]. Remote hx of IPLOC at [facility]TU. Plan: 07/16- increase prozac to 30mg po daily. add simethicone for bloating. 07/17 continue tx. Reason for contiued inpatient stay Substantial Risk for: harm to self Time Spent With Patient Time: Total time managing care of this patient today ____ minutes.
[2022-07-17 18:00] VITALS: BP 107/41; PULSE 68; RESP 17; TEMP 36.3; O2SAT 93
[2022-07-17] MEDS: LORazepam 1 MG TABLET PO (21:33)
[2022-07-17] MEDS: lamoTRIgine 25 MG TABLET PO (21:33)
[2022-07-17] MEDS: Sennosides/Docusate Sodium TABLET 1 TAB PO (21:33)
[2022-07-17] MEDS: Melatonin 3 MG TABLET 9 MG PO (21:34)
[2022-07-18] MEDS: Lidocaine 5 % Ointment 35 GM 1 APPL TOPICAL ×2 (03:27→21:02)
[2022-07-18] MEDS: Omeprazole 20 MG CAPSULE.DR PO (05:22)
[2022-07-18 06:00] VITALS: BP 110/60; PULSE 66; RESP 18; TEMP 36.4; O2SAT 95
[2022-07-18] MEDS: Torsemide 20 MG TABLET PO ×2 (08:11→21:00)
[2022-07-18] MEDS: Gabapentin 300 MG CAPSULE 900 MG PO ×3 (08:12→20:58)
[2022-07-18] MEDS: Apixaban 2.5 MG TABLET PO ×2 (08:12→20:59)
[2022-07-18] MEDS: Multivitamin TABLET 1 TAB PO (08:13)
[2022-07-18] MEDS: FLUoxetine HCl 10 MG CAPSULE 30 MG PO (08:13)
[2022-07-18] MEDS: Nystatin Powder 15 GM BOTTLE 1 APPL TOPICAL ×2 (08:16→21:09)
[2022-07-18] MEDS: polyethylene glycoL 3350 17 GM POWD.PACK PO (08:19)
[2022-07-18] MEDS: Simethicone 80 MG TAB.CHEW PO (10:44)
[2022-07-18] MEDS: Acetaminophen 325 MG TABLET 975 MG PO ×2 (10:45→15:50)
[2022-07-18] MEDS: Cholecalciferol (Vitamin D3) 25 MCG TABLET 50 MCG PO (12:38)
[2022-07-18] MEDS: Ascorbic Acid 500 MG TABLET 1000 MG PO (12:39)
--- NOTE | 2022-07-18 16:09 | HO.PSYCHPN ---
Subjective Subjective Date of Service: 07/18/22 Reason For Visit: SI, depression Interim History: Discussed with team. Spoke with pt. She says I cant tell you I feel any differently on lamictal 25 mg, she complains of depression, feels broken, doesnt feel she has seen PT enough, feels she is deteriorating. [facility] for [facility]. She is concerned with falling. Denies issues with sleep or appetite, normally as a rule i'm sleeping okay with the CPAP. Mental Status Exam Mental Status Exam Narrative: A&O. Obese, hospital attire, ambulates in wheelchair, stallings cath, bilateral leg compression device. Good eye contact, attentive. No Tics or Tremors. No abnormal involuntary movements. Calm, cooperative, engaged. Non-pressured speech, spontaneous with regular rate and rhythm, normal volume and prosody. No prolonged speech latency or dysarthria. Mood is ?okay,? affect is tearful at times. Denies SI/SIB/HI upon inquiry. Denies A/VH or delusional thought content. Thoughts are coherent, organized. No known cognitive or memory impairment. Insight/ Judgment fair and adequate. Diagnostics Vital Signs (24Hr): Vital Signs - 24 hr 07/17/22 18:00 07/18/22 06:00 Temperature 97.3 F 97.6 F Pulse Rate 68 66 Respiratory Rate 17 18 Blood Pressure 107/41 L 110/60 Pulse Oximetry 93 95 Oxygen Delivery Method Room Air BMI result Body Mass Index 51.3 Labs Results: 07/07/22 23:59 07/07/22 23:59 Medications Medications Current Medications Acetaminophen (Acetaminophen 325 Mg Tablet) 975 mg PO TID [facility] Last Admin: 07/18/22 15:50 Dose: 975 mg Al Hydroxide/Mg Hydroxide (Magnesium Hydrox/Alum Hydrox 30 Ml Oral.Susp) 30 ml PO Q6H PRN PRN Reason: Heartburn/Nausea Apixaban (Apixaban 2.5 Mg Tablet) 2.5 mg PO BID [facility] Last Admin: 07/18/22 08:12 Dose: 2.5 mg Ascorbic Acid (Ascorbic Acid 500 Mg Tablet) 1,000 mg PO DAILY@1200 [facility] Last Admin: 07/18/22 12:39 Dose: 1,000 mg Bacitracin (Bacitracin Oint 14 Gm Tube) 1 appl TOPICAL DAILY PRN; Protocol PRN Reason: left medial ankle when dressing change Fluoxetine HCl (Fluoxetine Hcl 10 Mg Capsule) 30 mg PO DAILY [facility] Last Admin: 07/18/22 08:13 Dose: 30 mg Gabapentin (Gabapentin 300 Mg Capsule) 900 mg PO TID [facility] Last Admin: 07/18/22 15:51 Dose: 900 mg Hydrocortisone (Hydrocortisone 2.5 % Rectal Cr 30 Gm Tube) 1 appl ID BID [facility] Last Admin: 07/18/22 08:16 Dose: Not Given Hydroxyzine HCl (Hydroxyzine Hcl 25 Mg Tablet) 25 mg PO Q6H PRN PRN Reason: Anxiety Last Admin: 07/16/22 23:23 Dose: 25 mg Lamotrigine (Lamotrigine 25 Mg Tablet) 25 mg PO BEDTIME [facility] Last Admin: 07/17/22 21:33 Dose: 25 mg Lidocaine (Lidocaine 5 % Ointment 35 Gm) 1 appl TOPICAL Q6H PRN; Protocol PRN Reason: moderate pain Last Admin: 07/18/22 03:27 Dose: 1 appl Lorazepam (Lorazepam 1 Mg Tablet) 1 mg PO BEDTIME [facility] Last Admin: 07/17/22 21:33 Dose: 1 mg Lorazepam (Lorazepam 0.5 Mg Tablet) 0.5 mg PO BID PRN PRN Reason: Anxiety Last Admin: 07/17/22 12:50 Dose: 0.5 mg Magnesium Hydroxide (Milk Of Magnesia 30 Ml Oral.Susp) 30 ml PO DAILY PRN PRN Reason: Constipation Melatonin (Melatonin 3 Mg Tablet) 9 mg PO BEDTIME [facility] Last Admin: 07/17/22 21:34 Dose: 9 mg Multivitamins/Vitamin C (Multivitamin Tablet) 1 tab PO DAILY [facility] Last Admin: 07/18/22 08:13 Dose: 1 tab Pt Own (Biotene) 1 each BUCCAL Q6H PRN PRN Reason: Dry Mouth Last Admin: 07/17/22 21:40 Dose: 1 each Pt Own (Xylimelts) 1 each BUCCAL Q6H PRN PRN Reason: Dry Mouth Last Admin: 07/17/22 21:40 Dose: 1 each Nystatin (Nystatin Powder 15 Gm Bottle) 1 appl TOPICAL BID [facility] Last Admin: 07/18/22 08:16 Dose: 1 appl Omeprazole (Omeprazole 20 Mg Capsule.Dr) 20 mg PO DAILY@0630 [facility] Last Admin: 07/18/22 05:22 Dose: 20 mg Pharmacy Consult (Consult Rx Perform Med Rec) 1 each MISCELLANE ONCE PRN PRN Reason: Consult order Polyethylene Glycol (Polyethylene Glycol 3350 17 Gm Powd.Pack) 17 gm PO DAILY [facility] Last Admin: 07/18/22 08:19 Dose: 17 gm Potassium Chloride (Potassium Chloride Er 10 Meq Capsule.Er) 10 meq PO DAILY [facility] Last Admin: 07/18/22 08:12 Dose: 10 meq Senna/Docusate Sodium (Sennosides/Docusate Sodium Tablet) 1 tab PO BEDTIME [facility] Last Admin: 07/17/22 21:33 Dose: 1 tab Simethicone (Simethicone 80 Mg Tab.Chew) 80 mg PO QIDWMHS PRN PRN Reason: bloating Last Admin: 07/18/22 10:44 Dose: 80 mg Torsemide (Torsemide 20 Mg Tablet) 20 mg PO BID [facility]; Protocol Last Admin: 07/18/22 08:11 Dose: 20 mg Torsemide (Torsemide 20 Mg Tablet) 20 mg PO DAILY PRN; Protocol PRN Reason: swelling Trazodone HCl (Trazodone Hcl 50 Mg Tablet) 50 mg PO BEDTIME PRN PRN Reason: insomnia Last Admin: 07/16/22 23:23 Dose: 50 mg Vitamin D (Cholecalciferol (Vitamin D3) 25 Mcg Tablet) 50 mcg PO DAILY@1200 [facility] Last Admin: 07/18/22 12:38 Dose: 50 mcg Allergies Allergies Allergy/AdvReac Type Severity Reaction Status Date / Time adhesive tape [ADHESIVE TAPE] Allergy Unknown RASH Verified 07/07/22 22:06 penicillin V Allergy Unknown Unknown Verified 07/07/22 22:06 Penicillins [PCN] Allergy Unknown HIVES Verified 07/07/22 22:06 Sulfa (Sulfonamide Allergy Unknown HIVES Verified 07/07/22 22:06 Antibiotics) [SULFA(SULFONAMIDE ANTIBIOTICS)] sulfacetamide Allergy Unknown Unknown Verified 07/07/22 22:06 Latex, Natural Rubber Allergy Unknown Verified 07/10/22 18:00 adhesive tape Allergy Unknown Unknown Uncoded 07/07/22 22:06 Assessment & Plan Assessment & Plan (1) MDD (major depressive disorder), recurrent episode, moderate: Status: Acute Code(s): F33.1 - Major depressive disorder, recurrent, moderate (2) WINSTON (generalized anxiety disorder): Status: Acute Code(s): F41.1 - Generalized anxiety disorder (3) Sleep apnea with use of continuous positive airway pressure (CPAP): Status: Acute Code(s): G47.30 - Sleep apnea, unspecified (4) Borderline personality disorder: Status: Acute Code(s): F60.3 - Borderline personality disorder (5) Post traumatic stress disorder (PTSD): Status: Acute Code(s): F43.10 - Post-traumatic stress disorder, unspecified Plan Tasneem is a 76 y.o. female who carries a dx of MDD recurrent, WINSTON, PTSD, and BPD. Pt presented to [facility] on 07/07/22 after she disclosed to her daughter suicidal thoughts and passive plan to drink bleach. Pt has co-morbid medical issues of bilateral LE lymphedema, ERUM with CPAP, atrial fib, CHF, CKD, carpal tunnel, arthritis/ osteoarthritis in knees (?bone on bone? pain, hx of rotator cuff tear. Receives cortisol inj for pain relief and takes gabapentin. Utox positive for cannabis. Denies ETOH abuse. Hx of SA by intentional OD requiring hospitalization 01/06/2021, dispo was to [facility]. Remote hx of IPLOC at [facility]. Plan: 07/16- increase prozac to 30mg po daily. add simethicone for bloating. 07/17 continue tx. 07/18- no difference with prozac increase or lamictal, understands meds may take some time to take effect Patient educated on: medication risk/benefits Reason for contiued inpatient stay Substantial Risk for: med/psych decompensation Time Spent With Patient Time: Total time managing care of this patient today ____ minutes.
[2022-07-18 20:00] VITALS: BP 117/60; PULSE 87; RESP 16; TEMP 36.3; O2SAT 96
[2022-07-18] MEDS: LORazepam 1 MG TABLET PO (20:59)
[2022-07-18] MEDS: lamoTRIgine 25 MG TABLET PO (20:59)
[2022-07-18] MEDS: Sennosides/Docusate Sodium TABLET 1 TAB PO (20:59)
[2022-07-18] MEDS: traZODone HCL 50 MG TABLET PO (21:18)
[2022-07-18] MEDS: Melatonin 3 MG TABLET 9 MG PO (21:19)
[2022-07-19] MEDS: LORazepam 0.5 MG TABLET PO (01:44)
[2022-07-19] MEDS: hydrOXYzine HCL 25 MG TABLET PO (01:44)
[2022-07-19 06:00] VITALS: BP 139/68; PULSE 79; RESP 16; TEMP 36.2; O2SAT 97
[2022-07-19] MEDS: Omeprazole 20 MG CAPSULE.DR PO (06:12)
[2022-07-19] MEDS: FLUoxetine HCl 10 MG CAPSULE 30 MG PO (09:09)
[2022-07-19] MEDS: Gabapentin 300 MG CAPSULE 900 MG PO ×3 (09:09→21:04)
[2022-07-19] MEDS: Multivitamin TABLET 1 TAB PO (09:10)
[2022-07-19] MEDS: Apixaban 2.5 MG TABLET PO ×2 (09:10→21:04)
[2022-07-19] MEDS: polyethylene glycoL 3350 17 GM POWD.PACK PO (09:10)
[2022-07-19] MEDS: Torsemide 20 MG TABLET PO ×2 (09:10→21:21)
[2022-07-19] MEDS: Simethicone 80 MG TAB.CHEW PO (09:12)
[2022-07-19] MEDS: Nystatin Powder 15 GM BOTTLE 1 APPL TOPICAL (11:36)
--- NOTE | 2022-07-19 13:32 | HO.PSYCHPN ---
Subjective Subjective Date of Service: 07/19/22 Reason For Visit: SI, depression Interim History: Discussed with team. Spoke with pt with daughter present. Says she has not been sleeping, not using her cpap due to miscommunication with staff but this will be straightened out tonight. There is concern for rash on face, red, eczematous, will d/c lamictal due to possible drug rxn. Discussed that she does not have s/s of UTI to reassure both pt and daughter, as pt was initially asking for UA. Pt says she is still emotional. Discussed depakote trial for mood stability. Says I cant keep coming to tears, the emotions are right up front. Mental Status Exam Mental Status Exam Narrative: A&O. Obese, hospital attire, ambulates in wheelchair, stallings cath, bilateral leg compression device. Good eye contact, attentive. No Tics or Tremors. No abnormal involuntary movements. Calm, cooperative, engaged. Non-pressured speech, spontaneous with regular rate and rhythm, normal volume and prosody. No prolonged speech latency or dysarthria. Mood is ?okay,? affect is tearful at times. Denies SI/SIB/HI upon inquiry. Denies A/VH or delusional thought content. Thoughts are coherent, organized. No known cognitive or memory impairment. Insight/ Judgment fair and adequate. Diagnostics Vital Signs (24Hr): Vital Signs - 24 hr 07/18/22 20:00 07/19/22 06:00 Temperature 97.3 F 97.1 F Pulse Rate 87 79 Respiratory Rate 16 16 Blood Pressure 117/60 139/68 Pulse Oximetry 96 97 Oxygen Delivery Method Room Air Room Air BMI result Body Mass Index 51.3 Labs Results: 07/07/22 23:59 07/07/22 23:59 Medications Medications Current Medications Acetaminophen (Acetaminophen 325 Mg Tablet) 975 mg PO TID PRN PRN Reason: pain, moderate Last Admin: 07/19/22 10:10 Dose: 975 mg Al Hydroxide/Mg Hydroxide (Magnesium Hydrox/Alum Hydrox 30 Ml Oral.Susp) 30 ml PO Q6H PRN PRN Reason: Heartburn/Nausea Apixaban (Apixaban 2.5 Mg Tablet) 2.5 mg PO BID [facility] Last Admin: 07/19/22 09:10 Dose: 2.5 mg Ascorbic Acid (Ascorbic Acid 500 Mg Tablet) 1,000 mg PO DAILY@1200 [facility] Last Admin: 07/18/22 12:39 Dose: 1,000 mg Bacitracin (Bacitracin Oint 14 Gm Tube) 1 appl TOPICAL DAILY PRN; Protocol PRN Reason: left medial ankle when dressing change Fluoxetine HCl (Fluoxetine Hcl 10 Mg Capsule) 30 mg PO DAILY [facility] Last Admin: 07/19/22 09:09 Dose: 30 mg Gabapentin (Gabapentin 300 Mg Capsule) 900 mg PO TID [facility] Last Admin: 07/19/22 09:09 Dose: 900 mg Hydrocortisone (Hydrocortisone 2.5 % Rectal Cr 30 Gm Tube) 1 appl MT BID [facility] Last Admin: 07/19/22 11:38 Dose: Not Given Hydroxyzine HCl (Hydroxyzine Hcl 25 Mg Tablet) 25 mg PO Q6H PRN PRN Reason: Anxiety Last Admin: 07/19/22 01:44 Dose: 25 mg Lamotrigine (Lamotrigine 25 Mg Tablet) 25 mg PO BEDTIME [facility] Last Admin: 07/18/22 20:59 Dose: 25 mg Lidocaine (Lidocaine 5 % Ointment 35 Gm) 1 appl TOPICAL Q6H PRN; Protocol PRN Reason: moderate pain Last Admin: 07/18/22 21:02 Dose: 1 appl Lorazepam (Lorazepam 1 Mg Tablet) 1 mg PO BEDTIME [facility] Last Admin: 07/18/22 20:59 Dose: 1 mg Lorazepam (Lorazepam 0.5 Mg Tablet) 0.5 mg PO BID PRN PRN Reason: Anxiety Last Admin: 07/19/22 01:44 Dose: 0.5 mg Magnesium Hydroxide (Milk Of Magnesia 30 Ml Oral.Susp) 30 ml PO DAILY PRN PRN Reason: Constipation Melatonin (Melatonin 3 Mg Tablet) 9 mg PO BEDTIME [facility] Last Admin: 07/18/22 21:19 Dose: 9 mg Multivitamins/Vitamin C (Multivitamin Tablet) 1 tab PO DAILY [facility] Last Admin: 07/19/22 09:10 Dose: 1 tab Pt Own (Biotene) 1 each BUCCAL Q6H PRN PRN Reason: Dry Mouth Last Admin: 07/18/22 21:21 Dose: 1 each Pt Own (Xylimelts) 1 each BUCCAL Q6H PRN PRN Reason: Dry Mouth Last Admin: 07/18/22 21:20 Dose: 1 each Nystatin (Nystatin Powder 15 Gm Bottle) 1 appl TOPICAL BID [facility] Last Admin: 07/19/22 11:36 Dose: 1 appl Omeprazole (Omeprazole 20 Mg Capsule.Dr) 20 mg PO DAILY@0630 [facility] Last Admin: 07/19/22 06:12 Dose: 20 mg Pharmacy Consult (Consult Rx Perform Med Rec) 1 each MISCELLANE ONCE PRN PRN Reason: Consult order Polyethylene Glycol (Polyethylene Glycol 3350 17 Gm Powd.Pack) 17 gm PO DAILY [facility] Last Admin: 07/19/22 09:10 Dose: 17 gm Potassium Chloride (Potassium Chloride Er 10 Meq Capsule.Er) 10 meq PO DAILY [facility] Last Admin: 07/19/22 09:10 Dose: 10 meq Senna/Docusate Sodium (Sennosides/Docusate Sodium Tablet) 1 tab PO BEDTIME [facility] Last Admin: 07/18/22 20:59 Dose: 1 tab Simethicone (Simethicone 80 Mg Tab.Chew) 80 mg PO QIDWMHS PRN PRN Reason: bloating Last Admin: 07/19/22 09:12 Dose: 80 mg Torsemide (Torsemide 20 Mg Tablet) 20 mg PO BID [facility]; Protocol Last Admin: 07/19/22 09:10 Dose: 20 mg Torsemide (Torsemide 20 Mg Tablet) 20 mg PO DAILY PRN; Protocol PRN Reason: swelling Trazodone HCl (Trazodone Hcl 50 Mg Tablet) 50 mg PO BEDTIME PRN PRN Reason: insomnia Last Admin: 07/18/22 21:18 Dose: 50 mg Vitamin D (Cholecalciferol (Vitamin D3) 25 Mcg Tablet) 50 mcg PO DAILY@1200 [facility] Last Admin: 07/18/22 12:38 Dose: 50 mcg Allergies Allergies Allergy/AdvReac Type Severity Reaction Status Date / Time adhesive tape [ADHESIVE TAPE] Allergy Unknown RASH Verified 07/07/22 22:06 penicillin V Allergy Unknown Unknown Verified 07/07/22 22:06 Penicillins [PCN] Allergy Unknown HIVES Verified 07/07/22 22:06 Sulfa (Sulfonamide Allergy Unknown HIVES Verified 07/07/22 22:06 Antibiotics) [SULFA(SULFONAMIDE ANTIBIOTICS)] sulfacetamide Allergy Unknown Unknown Verified 07/07/22 22:06 Latex, Natural Rubber Allergy Unknown Verified 07/10/22 18:00 adhesive tape Allergy Unknown Unknown Uncoded 07/07/22 22:06 Assessment & Plan Assessment & Plan (1) MDD (major depressive disorder), recurrent episode, moderate: Status: Acute Code(s): F33.1 - Major depressive disorder, recurrent, moderate (2) WINSTON (generalized anxiety disorder): Status: Acute Code(s): F41.1 - Generalized anxiety disorder (3) Sleep apnea with use of continuous positive airway pressure (CPAP): Status: Acute Code(s): G47.30 - Sleep apnea, unspecified (4) Borderline personality disorder: Status: Acute Code(s): F60.3 - Borderline personality disorder (5) Post traumatic stress disorder (PTSD): Status: Acute Code(s): F43.10 - Post-traumatic stress disorder, unspecified Plan Tasneem is a 76 y.o. female who carries a dx of MDD recurrent, WINSTON, PTSD, and BPD. Pt presented [place] [facility] on 07/07/22 after she disclosed to her daughter suicidal thoughts and passive plan to drink bleach. Pt has co-morbid medical issues of bilateral LE lymphedema, ERUM with CPAP, atrial fib, CHF, CKD, carpal tunnel, arthritis/ osteoarthritis in knees (?bone on bone? pain, hx of rotator cuff tear. Receives cortisol inj for pain relief and takes gabapentin. Utox positive for cannabis. Denies ETOH abuse. Hx of SA by intentional OD requiring hospitalization 01/06/2021, dispo was to [facility]. Remote hx of IPLOC at [facility]TU. Plan: 07/16- increase prozac to 30mg po daily. add simethicone for bloating. 07/17 continue tx. 07/18- no difference with prozac increase or lamictal, understands meds may take some time to take effect 07/19- d/c lamictal due to rash Patient educated on: medication risk/benefits and therapeutic strategies Reason for contiued inpatient stay Substantial Risk for: harm to self, rapid decompensation and med/psych decompensation Time Spent With Patient Time: Total time managing care of this patient today ____ minutes.
[2022-07-19] MEDS: Ascorbic Acid 500 MG TABLET 1000 MG PO (14:09)
[2022-07-19] MEDS: Cholecalciferol (Vitamin D3) 25 MCG TABLET 50 MCG PO (14:09)
[2022-07-19] MEDS: Acetaminophen 325 MG TABLET 975 MG PO ×2 (15:33→21:07)
[2022-07-19 18:00] VITALS: BP 113/76; PULSE 98; RESP 16; TEMP 36.2; O2SAT 94
[2022-07-19] MEDS: traZODone HCL 50 MG TABLET PO (21:03)
[2022-07-19] MEDS: Sennosides/Docusate Sodium TABLET 1 TAB PO (21:04)
[2022-07-19] MEDS: Melatonin 3 MG TABLET 9 MG PO (21:05)
[2022-07-19] MEDS: LORazepam 1 MG TABLET PO (21:05)
[2022-07-20] MEDS: Omeprazole 40 MG CAPSULE.DR PO (05:14)
[2022-07-20 07:30] VITALS: BP 128/58; PULSE 92; RESP 16; TEMP 36.2; O2SAT 93
[2022-07-20] MEDS: polyethylene glycoL 3350 17 GM POWD.PACK PO (09:24)
[2022-07-20] MEDS: FLUoxetine HCl 10 MG CAPSULE 30 MG PO (09:27)
[2022-07-20] MEDS: Multivitamin TABLET 1 TAB PO (09:27)
[2022-07-20] MEDS: Torsemide 20 MG TABLET PO ×2 (09:27→21:41)
[2022-07-20] MEDS: Apixaban 2.5 MG TABLET PO ×2 (09:27→21:37)
[2022-07-20] MEDS: Gabapentin 300 MG CAPSULE 900 MG PO ×3 (09:27→21:37)
[2022-07-20] MEDS: Acetaminophen 325 MG TABLET 975 MG PO ×3 (09:28→21:36)
--- NOTE | 2022-07-20 15:19 | HO.PSYCHPN ---
Subjective Subjective Date of Service: 07/20/22 Reason For Visit: SI, depression Interim History: Discussed with team. Spoke with pt. Her facial eczematous rash is noticeably better. Says she is in such pain all the time, referring to her back, was up at 3am, not able to fall back to sleep, used the CPAP but says it started hissing. She is due for cortisone inj tomorrow, that's why im having more pain. Also uncomfortable in the beds at the hospital. Pt interested in trialing depakote, as long as you can get this mood stabilized. She is tearful. Says she is trying to ambulate, today walked from bed to bathroom. Mental Status Exam Mental Status Exam Narrative: A&O. Obese, hospital attire, ambulates in wheelchair, stallings cath, bilateral leg compression device. Good eye contact, attentive. No Tics or Tremors. No abnormal involuntary movements. Calm, cooperative, engaged. Non-pressured speech, spontaneous with regular rate and rhythm, normal volume and prosody. No prolonged speech latency or dysarthria. Mood is ?okay,? affect is tearful at times. Denies SI/SIB/HI upon inquiry. Denies A/VH or delusional thought content. Thoughts are coherent, organized. No known cognitive or memory impairment. Insight/ Judgment fair and adequate. Diagnostics Vital Signs (24Hr): Vital Signs - 24 hr 07/19/22 18:00 07/20/22 07:30 Temperature 97.2 F 97.1 F Pulse Rate 98 92 Respiratory Rate 16 16 Blood Pressure 113/76 128/58 L Pulse Oximetry 94 93 Oxygen Delivery Method Room Air Room Air BMI result Body Mass Index 51.3 Labs Results: 07/07/22 23:59 07/07/22 23:59 Medications Medications Current Medications Acetaminophen (Acetaminophen 325 Mg Tablet) 975 mg PO TID [facility] Last Admin: 07/20/22 09:28 Dose: 975 mg Al Hydroxide/Mg Hydroxide (Magnesium Hydrox/Alum Hydrox 30 Ml Oral.Susp) 30 ml PO Q6H PRN PRN Reason: Heartburn/Nausea Apixaban (Apixaban 2.5 Mg Tablet) 2.5 mg PO BID [facility] Last Admin: 07/20/22 09:27 Dose: 2.5 mg Ascorbic Acid (Ascorbic Acid 500 Mg Tablet) 1,000 mg PO DAILY@1200 [facility] Last Admin: 07/19/22 14:09 Dose: 1,000 mg Bacitracin (Bacitracin Oint 14 Gm Tube) 1 appl TOPICAL DAILY PRN; Protocol PRN Reason: left medial ankle when dressing change Fluoxetine HCl (Fluoxetine Hcl 10 Mg Capsule) 30 mg PO DAILY [facility] Last Admin: 07/20/22 09:27 Dose: 30 mg Gabapentin (Gabapentin 300 Mg Capsule) 900 mg PO TID [facility] Last Admin: 07/20/22 09:27 Dose: 900 mg Hydrocortisone (Hydrocortisone 2.5 % Rectal Cr 30 Gm Tube) 1 appl CO BID [facility] Last Admin: 07/19/22 21:13 Dose: Not Given Hydroxyzine HCl (Hydroxyzine Hcl 25 Mg Tablet) 25 mg PO Q6H PRN PRN Reason: Anxiety Last Admin: 07/19/22 01:44 Dose: 25 mg Lidocaine (Lidocaine 5 % Ointment 35 Gm) 1 appl TOPICAL Q6H PRN; Protocol PRN Reason: moderate pain Last Admin: 07/18/22 21:02 Dose: 1 appl Lorazepam (Lorazepam 1 Mg Tablet) 1 mg PO BEDTIME [facility] Last Admin: 07/19/22 21:05 Dose: 1 mg Lorazepam (Lorazepam 0.5 Mg Tablet) 0.5 mg PO BID PRN PRN Reason: Anxiety Last Admin: 07/19/22 01:44 Dose: 0.5 mg Magnesium Hydroxide (Milk Of Magnesia 30 Ml Oral.Susp) 30 ml PO DAILY PRN PRN Reason: Constipation Melatonin (Melatonin 3 Mg Tablet) 9 mg PO BEDTIME [facility] Last Admin: 07/19/22 21:05 Dose: 9 mg Multi-Ingred Cream/Lotion/Oil/Oint (Mineral Oil/Petrolatum,White 106 Gm Tube) 1 appl TOPICAL BID [facility] Last Admin: 07/19/22 21:18 Dose: 1 appl Multivitamins/Vitamin C (Multivitamin Tablet) 1 tab PO DAILY [facility] Last Admin: 07/20/22 09:27 Dose: 1 tab Pt Own (Biotene) 1 each BUCCAL Q6H PRN PRN Reason: Dry Mouth Last Admin: 07/18/22 21:21 Dose: 1 each Pt Own (Xylimelts) 1 each BUCCAL Q6H PRN PRN Reason: Dry Mouth Last Admin: 07/19/22 21:06 Dose: 1 each Nystatin (Nystatin Powder 15 Gm Bottle) 1 appl TOPICAL BID [facility] Last Admin: 07/19/22 21:18 Dose: Not Given Omeprazole (Omeprazole 40 Mg Capsule.Dr) 40 mg PO DAILY@0630 [facility] Last Admin: 07/20/22 05:14 Dose: 40 mg Pharmacy Consult (Consult Rx Perform Med Rec) 1 each MISCELLANE ONCE PRN PRN Reason: Consult order Polyethylene Glycol (Polyethylene Glycol 3350 17 Gm Powd.Pack) 17 gm PO DAILY [facility] Last Admin: 07/20/22 09:24 Dose: 17 gm Potassium Chloride (Potassium Chloride Er 10 Meq Capsule.Er) 10 meq PO DAILY [facility] Last Admin: 07/20/22 09:27 Dose: 10 meq Senna/Docusate Sodium (Sennosides/Docusate Sodium Tablet) 1 tab PO BEDTIME [facility] Last Admin: 07/19/22 21:04 Dose: 1 tab Simethicone (Simethicone 80 Mg Tab.Chew) 80 mg PO QIDWMHS PRN PRN Reason: bloating Last Admin: 07/19/22 09:12 Dose: 80 mg Torsemide (Torsemide 20 Mg Tablet) 20 mg PO BID [facility]; Protocol Last Admin: 07/20/22 09:27 Dose: 20 mg Torsemide (Torsemide 20 Mg Tablet) 20 mg PO DAILY PRN; Protocol PRN Reason: swelling Trazodone HCl (Trazodone Hcl 50 Mg Tablet) 50 mg PO BEDTIME PRN PRN Reason: insomnia Last Admin: 07/19/22 21:03 Dose: 50 mg Vitamin D (Cholecalciferol (Vitamin D3) 25 Mcg Tablet) 50 mcg PO DAILY@1200 [facility] Last Admin: 07/19/22 14:09 Dose: 50 mcg Allergies Allergies Allergy/AdvReac Type Severity Reaction Status Date / Time adhesive tape [ADHESIVE TAPE] Allergy Unknown RASH Verified 07/07/22 22:06 penicillin V Allergy Unknown Unknown Verified 07/07/22 22:06 Penicillins [PCN] Allergy Unknown HIVES Verified 07/07/22 22:06 Sulfa (Sulfonamide Allergy Unknown HIVES Verified 07/07/22 22:06 Antibiotics) [SULFA(SULFONAMIDE ANTIBIOTICS)] sulfacetamide Allergy Unknown Unknown Verified 07/07/22 22:06 Latex, Natural Rubber Allergy Unknown Verified 07/10/22 18:00 adhesive tape Allergy Unknown Unknown Uncoded 07/07/22 22:06 Assessment & Plan Assessment & Plan (1) MDD (major depressive disorder), recurrent episode, moderate: Status: Acute Code(s): F33.1 - Major depressive disorder, recurrent, moderate (2) WINSTON (generalized anxiety disorder): Status: Acute Code(s): F41.1 - Generalized anxiety disorder (3) Sleep apnea with use of continuous positive airway pressure (CPAP): Status: Acute Code(s): G47.30 - Sleep apnea, unspecified (4) Borderline personality disorder: Status: Acute Code(s): F60.3 - Borderline personality disorder (5) Post traumatic stress disorder (PTSD): Status: Acute Code(s): F43.10 - Post-traumatic stress disorder, unspecified Plan Tasneem is a 76 y.o. female who carries a dx of MDD recurrent, WINSTON, PTSD, and BPD. Pt presented [place] [facility] [place]22 after she disclosed to her daughter suicidal thoughts and passive plan to drink bleach. Pt has co-morbid medical issues of bilateral LE lymphedema, ERUM with CPAP, atrial fib, CHF, CKD, carpal tunnel, arthritis/ osteoarthritis in knees (?bone on bone? pain, hx of rotator cuff tear. Receives cortisol inj for pain relief and takes gabapentin. Utox positive for cannabis. Denies ETOH abuse. Hx of SA by intentional OD requiring hospitalization 01/06/2021, dispo was to STR. Remote hx of IPLOC at [facility]. Plan: 07/16- increase prozac to 30mg po daily. add simethicone for bloating. 07/17 continue tx. 07/18- no difference with prozac increase or lamictal, understands meds may take some time to take effect 07/19- d/c lamictal due to rash 07/20- discussed depakote trial, however daughter asks that her [facility] records be checked prior, as she may have had previous trial but unable to recall Patient educated on: medication risk/benefits and therapeutic strategies Reason for contiued inpatient stay Substantial Risk for: harm to self, rapid decompensation and med/psych decompensation Time Spent With Patient Time: Total time managing care of this patient today ____ minutes.
[2022-07-20] MEDS: Cholecalciferol (Vitamin D3) 25 MCG TABLET 50 MCG PO (15:36)
[2022-07-20] MEDS: Ascorbic Acid 500 MG TABLET 1000 MG PO (15:36)
[2022-07-20 18:00] VITALS: BP 108/50; PULSE 84; RESP 18; TEMP 36.5; O2SAT 95
[2022-07-20] MEDS: LORazepam 1 MG TABLET PO (21:37)
[2022-07-20] MEDS: traZODone HCL 50 MG TABLET PO (21:41)
[2022-07-20] MEDS: Melatonin 3 MG TABLET 9 MG PO (21:43)
[2022-07-21] MEDS: traZODone HCL 50 MG TABLET PO ×2 (03:05→21:20)
[2022-07-21] MEDS: LORazepam 0.5 MG TABLET PO (03:12)
[2022-07-21] MEDS: Omeprazole 40 MG CAPSULE.DR PO (05:44)
[2022-07-21 07:30] VITALS: BP 126/58; BP 126/59; PULSE 68; RESP 16; TEMP 36.4; TEMP 36.5; O2SAT 98
[2022-07-21] MEDS: Acetaminophen 325 MG TABLET 975 MG PO ×3 (10:40→21:14)
[2022-07-21] MEDS: Gabapentin 300 MG CAPSULE 900 MG PO ×3 (10:40→21:16)
[2022-07-21] MEDS: Multivitamin TABLET 1 TAB PO (10:41)
[2022-07-21] MEDS: FLUoxetine HCl 10 MG CAPSULE 30 MG PO (10:41)
[2022-07-21] MEDS: polyethylene glycoL 3350 17 GM POWD.PACK PO (10:41)
[2022-07-21] MEDS: Apixaban 2.5 MG TABLET PO ×2 (10:41→21:17)
[2022-07-21] MEDS: Torsemide 20 MG TABLET PO ×2 (10:42→21:19)
--- NOTE | 2022-07-21 11:16 | HO.PSYCHPN ---
Subjective Subjective Date of Service: 07/21/22 Reason For Visit: SI, depression Subjective Notes: Conditional Voluntary Interim History: The nursing staff reported that the patient has being depressed and anxious, she scored 8/10. She had been using her CPAP machine at night and the camera, since one-to-one increases her anxiety. The occupational therapist, who she knows her from outpatient program, reported that she is at baseline, even though that she complains of anxiety and depression. The patient carries a diagnosis of borderline personality disorder and she is very well known for splitting with the staff. On interview, we discussed the possibility of starting Depakote, so far we could not find any records from [facility] regarding trials of Depakote and she can't remeber taking it. She agreed to try a low dose and reassess tomorrow. Mental Status Exam Mental Status Exam Patient Appearance: Well Grooomed and Appropriate Patient Orientation: Person and Situation Level of Consciousness: Awake and Appropriate Patient Behavior: Guarded, Cooperative and Suspicious Mood Description: Withdrawn Affect Description: Constricted Patient Cognition Impaired: No Ability to Follow Directions: Good Speech Pattern: Clear Hallucinations: None Delusions: Not Present Thought Process: Distracted and Linear Thought Content: positive for [place] and positive for Circumstantial Judgement: Fair Diagnostics Vital Signs (24Hr): Vital Signs - 24 hr 07/20/22 18:00 Temperature 97.7 F Pulse Rate 84 Respiratory Rate 18 Blood Pressure 108/50 L Pulse Oximetry 95 Oxygen Delivery Method Room Air BMI result Body Mass Index 51.3 Labs Results: 07/07/22 23:59 07/07/22 23:59 Medications Medications Current Medications Acetaminophen (Acetaminophen 325 Mg Tablet) 975 mg PO TID [facility] Last Admin: 07/21/22 10:40 Dose: 975 mg Al Hydroxide/Mg Hydroxide (Magnesium Hydrox/Alum Hydrox 30 Ml Oral.Susp) 30 ml PO Q6H PRN PRN Reason: Heartburn/Nausea Apixaban (Apixaban 2.5 Mg Tablet) 2.5 mg PO BID [facility] Last Admin: 07/21/22 10:41 Dose: 2.5 mg Ascorbic Acid (Ascorbic Acid 500 Mg Tablet) 1,000 mg PO DAILY@1200 [facility] Last Admin: 07/20/22 15:36 Dose: 1,000 mg Bacitracin (Bacitracin Oint 14 Gm Tube) 1 appl TOPICAL DAILY PRN; Protocol PRN Reason: left medial ankle when dressing change Fluoxetine HCl (Fluoxetine Hcl 10 Mg Capsule) 30 mg PO DAILY [facility] Last Admin: 07/21/22 10:41 Dose: 30 mg Gabapentin (Gabapentin 300 Mg Capsule) 900 mg PO TID [facility] Last Admin: 07/21/22 10:40 Dose: 900 mg Hydrocortisone (Hydrocortisone 2.5 % Rectal Cr 30 Gm Tube) 1 appl [place] BID [facility] Last Admin: 07/20/22 23:05 Dose: Not Given Hydroxyzine HCl (Hydroxyzine Hcl 25 Mg Tablet) 25 mg PO Q6H PRN PRN Reason: Anxiety Last Admin: 07/19/22 01:44 Dose: 25 mg Lidocaine (Lidocaine 5 % Ointment 35 Gm) 1 appl TOPICAL Q6H PRN; Protocol PRN Reason: moderate pain Last Admin: 07/18/22 21:02 Dose: 1 appl Lorazepam (Lorazepam 1 Mg Tablet) 1 mg PO BEDTIME [facility] Last Admin: 07/20/22 21:37 Dose: 1 mg Lorazepam (Lorazepam 0.5 Mg Tablet) 0.5 mg PO BID PRN PRN Reason: Anxiety Last Admin: 07/21/22 03:12 Dose: 0.5 mg Magnesium Hydroxide (Milk Of Magnesia 30 Ml Oral.Susp) 30 ml PO DAILY PRN PRN Reason: Constipation Melatonin (Melatonin 3 Mg Tablet) 9 mg PO BEDTIME [facility] Last Admin: 07/20/22 21:54 Dose: Not Given Multi-Ingred Cream/Lotion/Oil/Oint (Mineral Oil/Petrolatum,White 106 Gm Tube) 1 appl TOPICAL BID [facility] Last Admin: 07/20/22 21:42 Dose: 1 appl Multivitamins/Vitamin C (Multivitamin Tablet) 1 tab PO DAILY [facility] Last Admin: 07/21/22 10:41 Dose: 1 tab Pt Own (Biotene) 1 each BUCCAL Q6H PRN PRN Reason: Dry Mouth Last Admin: 07/18/22 21:21 Dose: 1 each Pt Own (Xylimelts) 1 each BUCCAL Q6H PRN PRN Reason: Dry Mouth Last Admin: 07/20/22 22:04 Dose: 1 each Nystatin (Nystatin Powder 15 Gm Bottle) 1 appl TOPICAL BID [facility] Last Admin: 07/20/22 23:05 Dose: Not Given Omeprazole (Omeprazole 40 Mg Capsule.Dr) 40 mg PO DAILY@0630 [facility] Last Admin: 07/21/22 05:44 Dose: 40 mg Pharmacy Consult (Consult Rx Perform Med Rec) 1 each MISCELLANE ONCE PRN PRN Reason: Consult order Polyethylene Glycol (Polyethylene Glycol 3350 17 Gm Powd.Pack) 17 gm PO DAILY [facility] Last Admin: 07/21/22 10:41 Dose: 17 gm Potassium Chloride (Potassium Chloride Er 10 Meq Capsule.Er) 10 meq PO DAILY [facility] Last Admin: 07/21/22 10:41 Dose: 10 meq Senna/Docusate Sodium (Sennosides/Docusate Sodium Tablet) 1 tab PO BEDTIME [facility] Last Admin: 07/20/22 21:52 Dose: Not Given Simethicone (Simethicone 80 Mg Tab.Chew) 80 mg PO QIDWMHS PRN PRN Reason: bloating Last Admin: 07/19/22 09:12 Dose: 80 mg Torsemide (Torsemide 20 Mg Tablet) 20 mg PO BID [facility]; Protocol Last Admin: 07/21/22 10:42 Dose: 20 mg Torsemide (Torsemide 20 Mg Tablet) 20 mg PO DAILY PRN; Protocol PRN Reason: swelling Trazodone HCl (Trazodone Hcl 50 Mg Tablet) 50 mg PO BEDTIME PRN PRN Reason: insomnia Last Admin: 07/21/22 03:05 Dose: 50 mg Vitamin D (Cholecalciferol (Vitamin D3) 25 Mcg Tablet) 50 mcg PO DAILY@1200 [facility] Last Admin: 07/20/22 15:36 Dose: 50 mcg Allergies Allergies Allergy/AdvReac Type Severity Reaction Status Date / Time adhesive tape [ADHESIVE TAPE] Allergy Unknown RASH Verified 07/07/22 22:06 penicillin V Allergy Unknown Unknown Verified 07/07/22 22:06 Penicillins [PCN] Allergy Unknown HIVES Verified 07/07/22 22:06 Sulfa (Sulfonamide Allergy Unknown HIVES Verified 07/07/22 22:06 Antibiotics) [SULFA(SULFONAMIDE ANTIBIOTICS)] sulfacetamide Allergy Unknown Unknown Verified 07/07/22 22:06 Latex, Natural Rubber Allergy Unknown Verified 07/10/22 18:00 adhesive tape Allergy Unknown Unknown Uncoded 07/07/22 22:06 Assessment & Plan Assessment & Plan (1) MDD (major depressive disorder), recurrent episode, moderate: Status: Acute Code(s): F33.1 - Major depressive disorder, recurrent, moderate (2) WINSTON (generalized anxiety disorder): Status: Acute Code(s): F41.1 - Generalized anxiety disorder (3) Sleep apnea with use of continuous positive airway pressure (CPAP): Status: Acute Code(s): G47.30 - Sleep apnea, unspecified (4) Borderline personality disorder: Status: Acute Code(s): F60.3 - Borderline personality disorder (5) Post traumatic stress disorder (PTSD): Status: Acute Code(s): F43.10 - Post-traumatic stress disorder, unspecified Plan Tasneem is a 76 y.o. female who carries a dx of MDD recurrent, WINSTON, PTSD, and BPD. Pt presented to [facility] on 07/07/22 after she disclosed to her daughter suicidal thoughts and passive plan to drink bleach. Pt has co-morbid medical issues of bilateral LE lymphedema, ERUM with CPAP, atrial fib, CHF, CKD, carpal tunnel, arthritis/ osteoarthritis in knees (?bone on bone? pain, hx of rotator cuff tear. Receives cortisol inj for pain relief and takes gabapentin. Utox positive for cannabis. Denies ETOH abuse. Hx of SA by intentional OD requiring hospitalization 01/06/2021, dispo was to STR. Remote hx of IPLOC at [facility]. Plan: 1. Keep Prozac up to 30 mg p.o. daily to target depression. 2. The patient had a rash most likely due to Lamictal so we will try Depakote as a mood stabilizer. So far, we had not been able to get records from [facility] so we will start a therapeutic trial today. Depakote 125 mg po tid. 3. We will try to get a new family meeting with outpatient providers for July 28. Reason for contiued inpatient stay Substantial Risk for: inability to function, rapid decompensation and med/psych decompensation Time Spent With Patient Time: Total time managing care of this patient today ____ minutes.
[2022-07-21] MEDS: Cholecalciferol (Vitamin D3) 25 MCG TABLET 50 MCG PO (12:20)
[2022-07-21] MEDS: Ascorbic Acid 500 MG TABLET 1000 MG PO (12:20)
[2022-07-21] MEDS: Divalproex Sodium 250 MG TABLET.DR 125 MG PO ×2 (15:48→21:20)
[2022-07-21 20:44] VITALS: BP 130/62; PULSE 80; RESP 18; TEMP 36.6; O2SAT 97
[2022-07-21] MEDS: Melatonin 3 MG TABLET 9 MG PO (21:17)
[2022-07-21] MEDS: LORazepam 1 MG TABLET PO (21:17)
[2022-07-22] MEDS: LORazepam 0.5 MG TABLET PO ×2 (04:45→16:27)
[2022-07-22] MEDS: Lidocaine 5 % Ointment 35 GM 1 APPL TOPICAL (05:00)
[2022-07-22] MEDS: Omeprazole 40 MG CAPSULE.DR PO (05:30)
[2022-07-22] MEDS: Acetaminophen 325 MG TABLET 975 MG PO ×3 (08:35→21:44)
[2022-07-22] MEDS: polyethylene glycoL 3350 17 GM POWD.PACK PO (08:39)
[2022-07-22] MEDS: Apixaban 2.5 MG TABLET PO ×2 (08:39→21:45)
[2022-07-22] MEDS: Torsemide 20 MG TABLET PO ×2 (08:40→21:47)
[2022-07-22] MEDS: Gabapentin 300 MG CAPSULE 900 MG PO ×3 (08:41→21:45)
[2022-07-22] MEDS: Multivitamin TABLET 1 TAB PO (08:41)
[2022-07-22] MEDS: FLUoxetine HCl 10 MG CAPSULE 30 MG PO (08:42)
[2022-07-22] MEDS: Nystatin Powder 15 GM BOTTLE 1 APPL TOPICAL (09:44)
[2022-07-22 10:46] LABS: Influenza A PCR POSITIVE (Negative); Influenza B PCR NEGATIVE (Negative); Resp Syncy Virus RNA Qual PCR NEGATIVE (Negative); SARS COV2 PCR INHOUSE NEGATIVE (Negative)
[2022-07-22] MEDS: Cholecalciferol (Vitamin D3) 25 MCG TABLET 50 MCG PO (13:13)
[2022-07-22] MEDS: Ascorbic Acid 500 MG TABLET 1000 MG PO (13:13)
--- NOTE | 2022-07-22 14:41 | P.PNPSI_ITS ---
Subjective Subjective Date of Service: 07/22/22 Reason For Visit: SI, depression Subjective Notes: Conditional Voluntary Interim History: The nursing staff reported the patient had been with the cough, we ordered test and she came positive to flu. She is now on contact precautions. The nursing staff reported that she took trazodone last night and he slept. We started Depakote 125 mg p.o. t.i.d. to target mood lability. Since we have just started this medication we will try to observed her in the next days. I talked with her daughter and apparently she also has the flu and she is unable to take care of her in the community at this moment. It will be safer to keep her here and start the titration of Depakote to target mood lability. On interview the patient denies over-sedation she is worried about her flu diagnosis and explained her the she would be safe. Mental Status Exam Mental Status Exam Patient Appearance: Well Grooomed and Appropriate Patient Orientation: Person and Situation Level of Consciousness: Awake and Appropriate Patient Behavior: Talkative and Cooperative Mood Description: Suspicious Affect Description: Constricted Patient Cognition Impaired: No Ability to Follow Directions: Good Speech Pattern: Clear Hallucinations: None Delusions: Not Present Thought Process: Linear Thought Content: positive for Circumstantial Judgement: Fair Diagnostics Vital Signs (24Hr): Vital Signs - 24 hr 07/21/22 20:44 Temperature 97.9 F Pulse Rate 80 Respiratory Rate 18 Blood Pressure 130/62 Pulse Oximetry 97 Oxygen Delivery Method Room Air BMI result Body Mass Index 51.3 Labs Results: 07/07/22 23:59 07/07/22 23:59 Labs: Laboratory Results - last 48 hr 07/22/22 09:35 Influenza Type A (PCR) POSITIVE A Influenza Type B (PCR) NEGATIVE RSV RNA Qual (PCR) NEGATIVE SARS-CoV-2 RNA (RT-PCR) NEGATIVE Medications Medications Current Medications Acetaminophen (Acetaminophen 325 Mg Tablet) 975 mg PO TID [facility] Last Admin: 07/22/22 08:35 Dose: 975 mg Al Hydroxide/Mg Hydroxide (Magnesium Hydrox/Alum Hydrox 30 Ml Oral.Susp) 30 ml PO Q6H PRN PRN Reason: Heartburn/Nausea Apixaban (Apixaban 2.5 Mg Tablet) 2.5 mg PO BID [facility] Last Admin: 07/22/22 08:39 Dose: 2.5 mg Ascorbic Acid (Ascorbic Acid 500 Mg Tablet) 1,000 mg PO DAILY@1200 [facility] Last Admin: 07/22/22 13:13 Dose: 1,000 mg Bacitracin (Bacitracin Oint 14 Gm Tube) 1 appl TOPICAL DAILY PRN; Protocol PRN Reason: left medial ankle when dressing change Divalproex Sodium (Divalproex Sodium Sprinkles 125 Mg Sincere.) 125 mg PO TID [facility] Fluoxetine HCl (Fluoxetine Hcl 10 Mg Capsule) 30 mg PO DAILY [facility] Last Admin: 07/22/22 08:42 Dose: 30 mg Gabapentin (Gabapentin 300 Mg Capsule) 900 mg PO TID [facility] Last Admin: 07/22/22 08:41 Dose: 900 mg Hydrocortisone (Hydrocortisone 2.5 % Rectal Cr 30 Gm Tube) 1 appl [place] BID [facility] Last Admin: 07/22/22 10:38 Dose: Not Given Hydroxyzine HCl (Hydroxyzine Hcl 25 Mg Tablet) 25 mg PO Q6H PRN PRN Reason: Anxiety Last Admin: 07/19/22 01:44 Dose: 25 mg Lidocaine (Lidocaine 5 % Ointment 35 Gm) 1 appl TOPICAL Q6H PRN; Protocol PRN Reason: moderate pain Last Admin: 07/22/22 05:00 Dose: 1 appl Lorazepam (Lorazepam 0.5 Mg Tablet) 0.5 mg PO BID PRN PRN Reason: Anxiety Last Admin: 07/22/22 04:45 Dose: 0.5 mg Magnesium Hydroxide (Milk Of Magnesia 30 Ml Oral.Susp) 30 ml PO DAILY PRN PRN Reason: Constipation Melatonin (Melatonin 3 Mg Tablet) 9 mg PO BEDTIME [facility] Last Admin: 07/21/22 21:17 Dose: 9 mg Multi-Ingred Cream/Lotion/Oil/Oint (Mineral Oil/Petrolatum,White 106 Gm Tube) 1 appl TOPICAL BID [facility] Last Admin: 07/22/22 09:44 Dose: 1 appl Multivitamins/Vitamin C (Multivitamin Tablet) 1 tab PO DAILY [facility] Last Admin: 07/22/22 08:41 Dose: 1 tab Pt Own (Biotene) 1 each BUCCAL Q6H PRN PRN Reason: Dry Mouth Last Admin: 07/18/22 21:21 Dose: 1 each Pt Own (Xylimelts) 1 each BUCCAL Q6H PRN PRN Reason: Dry Mouth Last Admin: 07/21/22 21:27 Dose: 1 each Nystatin (Nystatin Powder 15 Gm Bottle) 1 appl TOPICAL BID [facility] Last Admin: 07/22/22 09:44 Dose: 1 appl Omeprazole (Omeprazole 40 Mg Capsule.Dr) 40 mg PO DAILY@0630 [facility] Last Admin: 07/22/22 05:30 Dose: 40 mg Pharmacy Consult (Consult Rx Perform Med Rec) 1 each MISCELLANE ONCE PRN PRN Reason: Consult order Polyethylene Glycol (Polyethylene Glycol 3350 17 Gm Powd.Pack) 17 gm PO DAILY [facility] Last Admin: 07/22/22 08:39 Dose: 17 gm Potassium Chloride (Potassium Chloride Er 10 Meq Capsule.Er) 10 meq PO DAILY [facility] Last Admin: 07/22/22 08:41 Dose: 10 meq Senna/Docusate Sodium (Sennosides/Docusate Sodium Tablet) 1 tab PO BEDTIME [facility] Last Admin: 07/21/22 21:18 Dose: Not Given Simethicone (Simethicone 80 Mg Tab.Chew) 80 mg PO QIDWMHS PRN PRN Reason: bloating Last Admin: 07/19/22 09:12 Dose: 80 mg Torsemide (Torsemide 20 Mg Tablet) 20 mg PO BID [facility]; Protocol Last Admin: 07/22/22 08:40 Dose: 20 mg Torsemide (Torsemide 20 Mg Tablet) 20 mg PO DAILY PRN; Protocol PRN Reason: swelling Trazodone HCl (Trazodone Hcl 50 Mg Tablet) 50 mg PO BEDTIME PRN PRN Reason: insomnia Last Admin: 07/21/22 21:20 Dose: 50 mg Vitamin D (Cholecalciferol (Vitamin D3) 25 Mcg Tablet) 50 mcg PO DAILY@1200 [facility] Last Admin: 07/22/22 13:13 Dose: 50 mcg Allergies Allergies Allergy/AdvReac Type Severity Reaction Status Date / Time adhesive tape [ADHESIVE TAPE] Allergy Unknown RASH Verified 07/07/22 22:06 penicillin V Allergy Unknown Unknown Verified 07/07/22 22:06 Penicillins [PCN] Allergy Unknown HIVES Verified 07/07/22 22:06 Sulfa (Sulfonamide Allergy Unknown HIVES Verified 07/07/22 22:06 Antibiotics) [SULFA(SULFONAMIDE ANTIBIOTICS)] sulfacetamide Allergy Unknown Unknown Verified 07/07/22 22:06 Latex, Natural Rubber Allergy Unknown Verified 07/10/22 18:00 adhesive tape Allergy Unknown Unknown Uncoded 07/07/22 22:06 Assessment & Plan Assessment & Plan (1) MDD (major depressive disorder), recurrent episode, moderate: Status: Acute Code(s): F33.1 - Major depressive disorder, recurrent, moderate (2) WINSTON (generalized anxiety disorder): Status: Acute Code(s): F41.1 - Generalized anxiety disorder (3) Sleep apnea with use of continuous positive airway pressure (CPAP): Status: Acute Code(s): G47.30 - Sleep apnea, unspecified (4) Borderline personality disorder: Status: Acute Code(s): F60.3 - Borderline personality disorder (5) Post traumatic stress disorder (PTSD): Status: Acute Code(s): F43.10 - Post-traumatic stress disorder, unspecified Plan Tasneem is a 76 y.o. female who carries a dx of MDD recurrent, WINSTON, PTSD, and BPD. Pt presented to [facility] on 07/07/22 after she disclosed to her daughter suicidal thoughts and passive plan to drink bleach. Pt has co-morbid medical issues of bilateral LE lymphedema, ERUM with CPAP, atrial fib, CHF, CKD, carpal tunnel, arthritis/ osteoarthritis in knees (?bone on bone? pain, hx of rotator cuff tear. Receives cortisol inj for pain relief and takes gabapentin. Utox positive for cannabis. Denies ETOH abuse. Hx of SA by intentional OD requiring hospitalization 01/06/2021, dispo was to STR. Remote hx of IPLOC at [facility]. Plan: 1. Keep Prozac up to 30 mg p.o. daily to target depression. 2. The patient had a rash most likely due to Lamictal so we will try Depakote as a mood stabilizer. So far, we had not been able to get records from [facility] so we will start a therapeutic trial today. Depakote 125 mg po tid. 3. We will try to get a new family meeting with outpatient providers for July 28. 4. Flu contact precautions. Reason for contiued inpatient stay Substantial Risk for: inability to function, rapid decompensation and med/psych decompensation Time Spent With Patient Time: Total time managing care of this patient today __20__ minutes.
[2022-07-22] MEDS: Divalproex Sodium Sprinkles 125 MG CAP.DR.SPR PO ×2 (15:41→21:45)
[2022-07-22] MEDS: Divalproex Sodium 250 MG TABLET.DR 125 MG PO (16:30)
[2022-07-22 18:00] VITALS: BP 97/50; PULSE 104; RESP 16; TEMP 37.2; O2SAT 96
[2022-07-22] MEDS: LORazepam 1 MG TABLET PO (21:45)
[2022-07-22] MEDS: Melatonin 3 MG TABLET 9 MG PO (21:46)
[2022-07-22] MEDS: traZODone HCL 50 MG TABLET PO (21:52)
[2022-07-22] MEDS: guaiFENesin DM 100/10/5 ML 5 ML SYRUP PO (21:52)
[2022-07-23] MEDS: LORazepam 0.5 MG TABLET PO (04:50)
[2022-07-23] MEDS: Omeprazole 40 MG CAPSULE.DR PO (05:29)
[2022-07-23 06:00] VITALS: BP 120/62; PULSE 90; RESP 16; TEMP 36.7; O2SAT 98
[2022-07-23 07:00] VITALS: BMI 52.2
[2022-07-23] MEDS: Multivitamin TABLET 1 TAB PO (09:47)
[2022-07-23] MEDS: Gabapentin 300 MG CAPSULE 900 MG PO ×3 (09:47→20:25)
[2022-07-23] MEDS: FLUoxetine HCl 10 MG CAPSULE 30 MG PO (09:47)
[2022-07-23] MEDS: Apixaban 2.5 MG TABLET PO ×2 (09:47→20:25)
[2022-07-23] MEDS: Divalproex Sodium Sprinkles 125 MG CAP.DR.SPR PO (09:47)
[2022-07-23] MEDS: Acetaminophen 325 MG TABLET 975 MG PO ×3 (09:47→20:26)
[2022-07-23] MEDS: Torsemide 20 MG TABLET PO ×2 (09:48→20:25)
[2022-07-23] MEDS: polyethylene glycoL 3350 17 GM POWD.PACK PO (09:51)
[2022-07-23] MEDS: Nystatin Powder 15 GM BOTTLE 1 APPL TOPICAL (09:51)
--- NOTE | 2022-07-23 12:00 | HO.PSYCHPN ---
Subjective Subjective Date of Service: 07/23/22 Reason For Visit: SI, depression Subjective Notes: Conditional Voluntary Interim History: The nursing staff reported the patient refused her Senokot last night because she had loose stools. She has been isolative in her room due to the recent diagnosis of flu. On interview, the patient denies side effects with Depakote so we will increase to 250 mg p.o. t.i.d.. We will do blood work on Wednesday for a level. Mental Status Exam Mental Status Exam Patient Appearance: Well Grooomed and Appropriate Patient Orientation: Person and Situation Level of Consciousness: Awake and Appropriate Patient Behavior: Guarded and Passive Mood Description: Withdrawn and Constricted Affect Description: Calm Patient Cognition Impaired: No Ability to Follow Directions: Good Speech Pattern: Clear Hallucinations: None Delusions: Not Present Thought Process: Linear Thought Content: positive for Circumstantial Judgement: Fair Diagnostics Vital Signs (24Hr): Vital Signs - 24 hr 07/22/22 18:00 07/23/22 06:00 Temperature 98.9 F 98.0 F Pulse Rate 104 H 90 Respiratory Rate 16 16 Blood Pressure 97/50 L 120/62 Pulse Oximetry 96 98 Oxygen Delivery Method Room Air BMI result Body Mass Index 52.2 Labs Results: 07/07/22 23:59 07/07/22 23:59 Labs: Laboratory Results - last 48 hr 07/22/22 09:35 Influenza Type A (PCR) POSITIVE A Influenza Type B (PCR) NEGATIVE RSV RNA Qual (PCR) NEGATIVE SARS-CoV-2 RNA (RT-PCR) NEGATIVE Medications Medications Current Medications Acetaminophen (Acetaminophen 325 Mg Tablet) 975 mg PO TID [facility] Last Admin: 07/23/22 09:47 Dose: 975 mg Al Hydroxide/Mg Hydroxide (Magnesium Hydrox/Alum Hydrox 30 Ml Oral.Susp) 30 ml PO Q6H PRN PRN Reason: Heartburn/Nausea Apixaban (Apixaban 2.5 Mg Tablet) 2.5 mg PO BID [facility] Last Admin: 07/23/22 09:47 Dose: 2.5 mg Ascorbic Acid (Ascorbic Acid 500 Mg Tablet) 1,000 mg PO DAILY@1200 [facility] Last Admin: 07/22/22 13:13 Dose: 1,000 mg Bacitracin (Bacitracin Oint 14 Gm Tube) 1 appl TOPICAL DAILY PRN; Protocol PRN Reason: left medial ankle when dressing change Divalproex Sodium (Divalproex Sodium Sprinkles 125 Mg ) 125 mg PO TID [facility] Last Admin: 07/23/22 09:47 Dose: 125 mg Fluoxetine HCl (Fluoxetine Hcl 10 Mg Capsule) 30 mg PO DAILY [facility] Last Admin: 07/23/22 09:47 Dose: 30 mg Gabapentin (Gabapentin 300 Mg Capsule) 900 mg PO TID [facility] Last Admin: 07/23/22 09:47 Dose: 900 mg Guaifenesin/Dextromethorphan (Guaifenesin Dm 100/10/5 Ml 5 Ml Syrup) 5 ml PO Q4H PRN PRN Reason: Cough Last Admin: 07/22/22 21:52 Dose: 5 ml Hydrocortisone (Hydrocortisone 2.5 % Rectal Cr 30 Gm Tube) 1 appl WA BID [facility] Last Admin: 07/23/22 09:51 Dose: Not Given Hydroxyzine HCl (Hydroxyzine Hcl 25 Mg Tablet) 25 mg PO Q6H PRN PRN Reason: Anxiety Last Admin: 07/19/22 01:44 Dose: 25 mg Lidocaine (Lidocaine 5 % Ointment 35 Gm) 1 appl TOPICAL Q6H PRN; Protocol PRN Reason: moderate pain Last Admin: 07/22/22 05:00 Dose: 1 appl Lorazepam (Lorazepam 1 Mg Tablet) 1 mg PO BEDTIME [facility] Last Admin: 07/22/22 21:45 Dose: 1 mg Magnesium Hydroxide (Milk Of Magnesia 30 Ml Oral.Susp) 30 ml PO DAILY PRN PRN Reason: Constipation Melatonin (Melatonin 3 Mg Tablet) 9 mg PO BEDTIME [facility] Last Admin: 07/22/22 21:46 Dose: 9 mg Multi-Ingred Cream/Lotion/Oil/Oint (Mineral Oil/Petrolatum,White 106 Gm Tube) 1 appl TOPICAL BID [facility] Last Admin: 07/23/22 09:51 Dose: 1 appl Multivitamins/Vitamin C (Multivitamin Tablet) 1 tab PO DAILY [facility] Last Admin: 07/23/22 09:47 Dose: 1 tab Pt Own (Biotene) 1 each BUCCAL Q6H PRN PRN Reason: Dry Mouth Last Admin: 07/18/22 21:21 Dose: 1 each Pt Own (Xylimelts) 1 each BUCCAL Q6H PRN PRN Reason: Dry Mouth Last Admin: 07/22/22 22:07 Dose: 1 each Nystatin (Nystatin Powder 15 Gm Bottle) 1 appl TOPICAL BID [facility] Last Admin: 07/23/22 09:51 Dose: 1 appl Omeprazole (Omeprazole 40 Mg Capsule.Dr) 40 mg PO DAILY@0630 [facility] Last Admin: 07/23/22 05:29 Dose: 40 mg Pharmacy Consult (Consult Rx Perform Med Rec) 1 each MISCELLANE ONCE PRN PRN Reason: Consult order Polyethylene Glycol (Polyethylene Glycol 3350 17 Gm Powd.Pack) 17 gm PO DAILY [facility] Last Admin: 07/23/22 09:51 Dose: 17 gm Potassium Chloride (Potassium Chloride Er 10 Meq Capsule.Er) 10 meq PO DAILY [facility] Last Admin: 07/23/22 09:48 Dose: 10 meq Senna/Docusate Sodium (Sennosides/Docusate Sodium Tablet) 1 tab PO BEDTIME [facility] Last Admin: 07/22/22 21:46 Dose: Not Given Simethicone (Simethicone 80 Mg Tab.Chew) 80 mg PO QIDWMHS PRN PRN Reason: bloating Last Admin: 07/19/22 09:12 Dose: 80 mg Torsemide (Torsemide 20 Mg Tablet) 20 mg PO BID [facility]; Protocol Last Admin: 07/23/22 09:48 Dose: 20 mg Torsemide (Torsemide 20 Mg Tablet) 20 mg PO DAILY PRN; Protocol PRN Reason: swelling Trazodone HCl (Trazodone Hcl 50 Mg Tablet) 50 mg PO BEDTIME PRN PRN Reason: insomnia Last Admin: 07/22/22 21:52 Dose: 50 mg Vitamin D (Cholecalciferol (Vitamin D3) 25 Mcg Tablet) 50 mcg PO DAILY@1200 [facility] Last Admin: 07/22/22 13:13 Dose: 50 mcg Allergies Allergies Allergy/AdvReac Type Severity Reaction Status Date / Time adhesive tape [ADHESIVE TAPE] Allergy Unknown RASH Verified 07/07/22 22:06 penicillin V Allergy Unknown Unknown Verified 07/07/22 22:06 Penicillins [PCN] Allergy Unknown HIVES Verified 07/07/22 22:06 Sulfa (Sulfonamide Allergy Unknown HIVES Verified 07/07/22 22:06 Antibiotics) [SULFA(SULFONAMIDE ANTIBIOTICS)] sulfacetamide Allergy Unknown Unknown Verified 07/07/22 22:06 Latex, Natural Rubber Allergy Unknown Verified 07/10/22 18:00 adhesive tape Allergy Unknown Unknown Uncoded 07/07/22 22:06 Assessment & Plan Assessment & Plan (1) MDD (major depressive disorder), recurrent episode, moderate: Status: Acute Code(s): F33.1 - Major depressive disorder, recurrent, moderate (2) WINSTON (generalized anxiety disorder): Status: Acute Code(s): F41.1 - Generalized anxiety disorder (3) Sleep apnea with use of continuous positive airway pressure (CPAP): Status: Acute Code(s): G47.30 - Sleep apnea, unspecified (4) Borderline personality disorder: Status: Acute Code(s): F60.3 - Borderline personality disorder (5) Post traumatic stress disorder (PTSD): Status: Acute Code(s): F43.10 - Post-traumatic stress disorder, unspecified Plan Tasneem is a 76 y.o. female who carries a dx of MDD recurrent, WINSTON, PTSD, and BPD. Pt [place] [facility] on [place]07[place]22 after she disclosed to her daughter suicidal thoughts and passive plan to drink bleach. Pt has co-morbid medical issues of bilateral LE lymphedema, ERUM with CPAP, atrial fib, CHF, CKD, carpal tunnel, arthritis/ osteoarthritis in knees (?bone on bone? pain, hx of rotator cuff tear. Receives cortisol inj for pain relief and takes gabapentin. Utox positive for cannabis. Denies ETOH abuse. Hx of SA by intentional OD requiring hospitalization 01/06/2021, dispo was to STR. Remote hx of IPLOC at [facility]. Plan: 1. Keep Prozac up to 30 mg p.o. daily to target depression. 2. The patient had a rash most likely due to Lamictal so we will try Depakote as a mood stabilizer. So far, we had not been able to get records from [facility] so we will start a therapeutic trial today. Increase Depakote up to 250 mg p.o. t.i.d.. 3. We will try to get a new family meeting with outpatient providers for July 28. 4. Flu contact precautions. Reason for contiued inpatient stay Substantial Risk for: inability to function, rapid decompensation and med/psych decompensation Time Spent With Patient Time: Total time managing care of this patient today __20__ minutes.
[2022-07-23] MEDS: guaiFENesin DM 100/10/5 ML 5 ML SYRUP PO ×2 (13:33→23:58)
[2022-07-23] MEDS: Cholecalciferol (Vitamin D3) 25 MCG TABLET 50 MCG PO (15:17)
[2022-07-23] MEDS: Divalproex Sodium Sprinkles 125 MG CAP.DR.SPR 250 MG PO ×2 (15:17→20:25)
[2022-07-23] MEDS: Ascorbic Acid 500 MG TABLET 1000 MG PO (15:18)
[2022-07-23 19:14] VITALS: BP 97/62; PULSE 88; RESP 20; TEMP 37.8; O2SAT 94
[2022-07-23] MEDS: Melatonin 3 MG TABLET 9 MG PO (20:25)
[2022-07-23] MEDS: Sennosides/Docusate Sodium TABLET 1 TAB PO (20:25)
[2022-07-23] MEDS: LORazepam 1 MG TABLET PO (20:25)
[2022-07-23] MEDS: traZODone HCL 50 MG TABLET PO (20:25)
[2022-07-24 00:01] VITALS: TEMP 37.6
[2022-07-24 06:00] VITALS: BP 109/51; PULSE 82; RESP 17; TEMP 36.7; O2SAT 94
[2022-07-24] MEDS: Apixaban 2.5 MG TABLET PO ×2 (09:54→21:22)
[2022-07-24] MEDS: FLUoxetine HCl 10 MG CAPSULE 30 MG PO (09:55)
[2022-07-24] MEDS: Omeprazole 40 MG CAPSULE.DR PO (09:55)
[2022-07-24] MEDS: Acetaminophen 325 MG TABLET 975 MG PO ×3 (09:55→21:21)
[2022-07-24] MEDS: Divalproex Sodium Sprinkles 125 MG CAP.DR.SPR 250 MG PO ×3 (09:56→21:21)
[2022-07-24] MEDS: Torsemide 20 MG TABLET PO ×2 (09:56→21:22)
[2022-07-24] MEDS: Gabapentin 300 MG CAPSULE 900 MG PO ×3 (09:56→21:21)
[2022-07-24] MEDS: polyethylene glycoL 3350 17 GM POWD.PACK PO (09:57)
[2022-07-24] MEDS: Multivitamin TABLET 1 TAB PO (09:57)
[2022-07-24] MEDS: Nystatin Powder 15 GM BOTTLE 1 APPL TOPICAL (09:57)
--- NOTE | 2022-07-24 13:35 | P.PNPSI_ITS ---
Subjective Subjective Date of Service: 07/24/22 Reason For Visit: SI, depression Subjective Notes: Conditional Voluntary Interim History: The nursing staff reported the patient is a 5 minute checks, the urine in her [place] came back clear. She still coughing and bed. Last night she had a low temp fever that improved with Tylenol. On interview the patient reports that she is feeling weak and sick because of the flu. She was angry since she was not changed her clothes after soiling herself. No safety concerns, no side effects with the recent titration of D epakote. Mental Status Exam Mental Status Exam Patient Appearance: Well Grooomed Patient Orientation: Person and Situation Level of Consciousness: Awake and Appropriate Patient Behavior: Guarded and Passive Mood Description: Withdrawn Affect Description: Constricted Patient Cognition Impaired: Yes Ability to Follow Directions: Good Speech Pattern: Clear Hallucinations: None Delusions: Not Present Thought Process: Distracted Thought Content: positive for [place] and positive for Goal Oriented Judgement: Fair Diagnostics Vital Signs (24Hr): Vital Signs - 24 hr 07/23/22 19:14 07/24/22 00:01 07/24/22 06:00 Temperature 100.1 F 99.6 F 98.0 F Pulse Rate 88 82 Respiratory Rate 20 17 Blood Pressure 97/62 109/51 L Pulse Oximetry 94 94 Oxygen Delivery Method Room Air Room Air BMI result Body Mass Index 52.2 Labs Results: 07/07/22 23:59 07/07/22 23:59 Medications Medications Current Medications Acetaminophen (Acetaminophen 325 Mg Tablet) 975 mg PO TID [facility] Last Admin: 07/24/22 09:55 Dose: 975 mg Al Hydroxide/Mg Hydroxide (Magnesium Hydrox/Alum Hydrox 30 Ml Oral.Susp) 30 ml PO Q6H PRN PRN Reason: Heartburn/Nausea Apixaban (Apixaban 2.5 Mg Tablet) 2.5 mg PO BID [facility] Last Admin: 07/24/22 09:54 Dose: 2.5 mg Ascorbic Acid (Ascorbic Acid 500 Mg Tablet) 1,000 mg PO DAILY@1200 [facility] Last Admin: 07/23/22 15:18 Dose: 1,000 mg Bacitracin (Bacitracin Oint 14 Gm Tube) 1 appl TOPICAL DAILY PRN; Protocol PRN Reason: left medial ankle when dressing change Divalproex Sodium (Divalproex Sodium Sprinkles 125 Mg ) 250 mg PO TID [facility] Last Admin: 07/24/22 09:56 Dose: 250 mg Fluoxetine HCl (Fluoxetine Hcl 10 Mg Capsule) 30 mg PO DAILY [facility] Last Admin: 07/24/22 09:55 Dose: 30 mg Gabapentin (Gabapentin 300 Mg Capsule) 900 mg PO TID [facility] Last Admin: 07/24/22 09:56 Dose: 900 mg Guaifenesin/Dextromethorphan (Guaifenesin Dm 100/10/5 Ml 5 Ml Syrup) 5 ml PO Q4H PRN PRN Reason: Cough Last Admin: 07/23/22 23:58 Dose: 5 ml Hydrocortisone (Hydrocortisone 2.5 % Rectal Cr 30 Gm Tube) 1 appl ND BID [facility] Last Admin: 07/24/22 09:57 Dose: Not Given Hydroxyzine HCl (Hydroxyzine Hcl 25 Mg Tablet) 25 mg PO Q6H PRN PRN Reason: Anxiety Last Admin: 07/19/22 01:44 Dose: 25 mg Lidocaine (Lidocaine 5 % Ointment 35 Gm) 1 appl TOPICAL Q6H PRN; Protocol PRN Reason: moderate pain Last Admin: 07/22/22 05:00 Dose: 1 appl Lorazepam (Lorazepam 1 Mg Tablet) 1 mg PO BEDTIME [facility] Last Admin: 07/23/22 20:25 Dose: 1 mg Magnesium Hydroxide (Milk Of Magnesia 30 Ml Oral.Susp) 30 ml PO DAILY PRN PRN Reason: Constipation Melatonin (Melatonin 3 Mg Tablet) 9 mg PO BEDTIME [facility] Last Admin: 07/23/22 20:25 Dose: 9 mg Multi-Ingred Cream/Lotion/Oil/Oint (Mineral Oil/Petrolatum,White 106 Gm Tube) 1 appl TOPICAL BID [facility] Last Admin: 07/24/22 09:57 Dose: 1 appl Multivitamins/Vitamin C (Multivitamin Tablet) 1 tab PO DAILY [facility] Last Admin: 07/24/22 09:57 Dose: 1 tab Pt Own (Biotene) 1 each BUCCAL Q6H PRN PRN Reason: Dry Mouth Last Admin: 07/18/22 21:21 Dose: 1 each Pt Own (Xylimelts) 1 each BUCCAL Q6H PRN PRN Reason: Dry Mouth Last Admin: 07/23/22 20:44 Dose: 1 each Nystatin (Nystatin Powder 15 Gm Bottle) 1 appl TOPICAL BID [facility] Last Admin: 07/24/22 09:57 Dose: 1 appl Omeprazole (Omeprazole 40 Mg Capsule.Dr) 40 mg PO DAILY@0630 [facility] Last Admin: 07/24/22 09:55 Dose: 40 mg Pharmacy Consult (Consult Rx Perform Med Rec) 1 each MISCELLANE ONCE PRN PRN Reason: Consult order Polyethylene Glycol (Polyethylene Glycol 3350 17 Gm Powd.Pack) 17 gm PO DAILY [facility] Last Admin: 07/24/22 09:57 Dose: 17 gm Potassium Chloride (Potassium Chloride Er 10 Meq Capsule.Er) 10 meq PO DAILY [facility] Last Admin: 07/24/22 09:54 Dose: 10 meq Senna/Docusate Sodium (Sennosides/Docusate Sodium Tablet) 1 tab PO BEDTIME [facility] Last Admin: 07/23/22 20:25 Dose: 1 tab Simethicone (Simethicone 80 Mg Tab.Chew) 80 mg PO QIDWMHS PRN PRN Reason: bloating Last Admin: 07/19/22 09:12 Dose: 80 mg Torsemide (Torsemide 20 Mg Tablet) 20 mg PO BID [facility]; Protocol Last Admin: 07/24/22 09:56 Dose: 20 mg Torsemide (Torsemide 20 Mg Tablet) 20 mg PO DAILY PRN; Protocol PRN Reason: swelling Trazodone HCl (Trazodone Hcl 50 Mg Tablet) 50 mg PO BEDTIME PRN PRN Reason: insomnia Last Admin: 07/23/22 20:25 Dose: 50 mg Vitamin D (Cholecalciferol (Vitamin D3) 25 Mcg Tablet) 50 mcg PO DAILY@1200 [facility] Last Admin: 07/23/22 15:17 Dose: 50 mcg Allergies Allergies Allergy/AdvReac Type Severity Reaction Status Date / Time adhesive tape [ADHESIVE TAPE] Allergy Unknown RASH Verified 07/07/22 22:06 penicillin V Allergy Unknown Unknown Verified 07/07/22 22:06 Penicillins [PCN] Allergy Unknown HIVES Verified 07/07/22 22:06 Sulfa (Sulfonamide Allergy Unknown HIVES Verified 07/07/22 22:06 Antibiotics) [SULFA(SULFONAMIDE ANTIBIOTICS)] sulfacetamide Allergy Unknown Unknown Verified 07/07/22 22:06 Latex, Natural Rubber Allergy Unknown Verified 07/10/22 18:00 adhesive tape Allergy Unknown Unknown Uncoded 07/07/22 22:06 Assessment & Plan Assessment & Plan (1) MDD (major depressive disorder), recurrent episode, moderate: Status: Acute Code(s): F33.1 - Major depressive disorder, recurrent, moderate (2) WINSTON (generalized anxiety disorder): Status: Acute Code(s): F41.1 - Generalized anxiety disorder (3) Sleep apnea with use of continuous positive airway pressure (CPAP): Status: Acute Code(s): G47.30 - Sleep apnea, unspecified (4) Borderline personality disorder: Status: Acute Code(s): F60.3 - Borderline personality disorder (5) Post traumatic stress disorder (PTSD): Status: Acute Code(s): F43.10 - Post-traumatic stress disorder, unspecified Plan Tasneem is a 76 y.o. female who carries a dx of MDD recurrent, WINSTON, PTSD, and BPD. Pt [place] [facility] [place]07[place] after she disclosed to her daughter suicidal thoughts and passive plan to drink bleach. Pt has co-morbid medical issues of bilateral LE lymphedema, ERUM with CPAP, atrial fib, CHF, CKD, carpal tunnel, arthritis/ osteoarthritis in knees (?bone on bone? pain, hx of rotator cuff tear. Receives cortisol inj for pain relief and takes gabapentin. Utox positive for cannabis. Denies ETOH abuse. Hx of SA by intentional OD requiring hospitalization 01/06/2021, dispo was to STR. Remote hx of IPLOC at [facility]TU. Plan: 1. Keep Prozac up to 30 mg p.o. daily to target depression. 2. The patient had a rash most likely due to Lamictal so we will try Depakote as a mood stabilizer. So far, we had not been able to get records from [facility] so we will start a therapeutic trial today. Increase Depakote up to 250 mg p.o. t.i.d.. 3. We will try to get a new family meeting with outpatient providers for July 28. 4. Flu contact precautions. 5. Blood work for Wednesday with Depakote level, basic metabolic panel, CBC and liver function test Reason for contiued inpatient stay Substantial Risk for: inability to function, rapid decompensation and med/psych decompensation Time Spent With Patient Time: Total time managing care of this patient today __20__ minutes.
[2022-07-24] MEDS: guaiFENesin DM 100/10/5 ML 5 ML SYRUP PO (16:21)
[2022-07-24] MEDS: Cholecalciferol (Vitamin D3) 25 MCG TABLET 50 MCG PO (16:21)
[2022-07-24] MEDS: Ascorbic Acid 500 MG TABLET 1000 MG PO (16:21)
[2022-07-24] MEDS: Melatonin 3 MG TABLET 9 MG PO (21:22)
[2022-07-24] MEDS: LORazepam 1 MG TABLET PO (21:22)
[2022-07-24 21:44] VITALS: BP 143/78; PULSE 65; RESP 18; TEMP 37.1; O2SAT 97
[2022-07-25] MEDS: Omeprazole 40 MG CAPSULE.DR PO (06:03)
[2022-07-25 07:45] VITALS: BP 93/49; PULSE 84; RESP 16; TEMP 36.6; O2SAT 93
[2022-07-25] MEDS: Loperamide HCl 2 MG CAPSULE 4 MG PO ×2 (09:07→13:23)
[2022-07-25] MEDS: FLUoxetine HCl 10 MG CAPSULE 30 MG PO (09:08)
[2022-07-25] MEDS: Gabapentin 300 MG CAPSULE 900 MG PO ×3 (09:08→21:51)
[2022-07-25] MEDS: Multivitamin TABLET 1 TAB PO (09:08)
[2022-07-25] MEDS: Divalproex Sodium Sprinkles 125 MG CAP.DR.SPR 250 MG PO ×3 (09:08→21:51)
[2022-07-25] MEDS: Apixaban 2.5 MG TABLET PO ×2 (09:08→21:51)
[2022-07-25] MEDS: Acetaminophen 325 MG TABLET 975 MG PO ×3 (09:09→21:51)
[2022-07-25] MEDS: Torsemide 20 MG TABLET PO ×2 (09:09→21:51)
[2022-07-25] MEDS: guaiFENesin DM 100/10/5 ML 5 ML SYRUP PO ×2 (09:41→13:57)
[2022-07-25] MEDS: LORazepam 0.5 MG TABLET PO (13:21)
[2022-07-25] MEDS: Ascorbic Acid 500 MG TABLET 1000 MG PO (13:22)
[2022-07-25] MEDS: Cholecalciferol (Vitamin D3) 25 MCG TABLET 50 MCG PO (13:22)
--- NOTE | 2022-07-25 13:40 | HO.PSYCHPN ---
Subjective Subjective Date of Service: 07/25/22 Reason For Visit: SI, depression Interim History: Patient seen and discussed with nursing. She reports increased anxiety and depression related to being isolated due to the flu. She has been having diarrhea and needs changing. She has some cough. Denies SOB. She says I lost my momentum.. She had overnight diarrhea and didn't sleep well because she needed to be changed. No active SI but says she is despondent and says doc, I don't want to live like this.. because of the isolation and not participating. Review of Systems Review of Systems Yes all other systems are reviewed and are negative Mental Status Exam Mental Status Exam Narrative: A&O. Obese, hospital attire, laying in bed. bilateral leg compression device. Good eye contact, attentive. No Tics or Tremors. No abnormal involuntary movements. Calm, cooperative, engaged. Non-pressured speech, spontaneous with regular rate and rhythm, normal volume and prosody. No prolonged speech latency or dysarthria. Mood is ?it's hard? affect is tearful at times. Denies SI/SIB/HI upon inquiry. Denies A/VH or delusional thought content. Thoughts are coherent, organized. No known cognitive or memory impairment. Insight/ Judgment fair and adequate. Patient Appearance: Well Grooomed Patient Orientation: Person and Situation Level of Consciousness: Awake and Appropriate Patient Behavior: Guarded and Passive Mood Description: Withdrawn Affect Description: Constricted Patient Cognition Impaired: Yes Ability to Follow Directions: Good Speech Pattern: Clear Memory Description: Episodic Impaired Diagnostics Vital Signs (24Hr): Vital Signs - 24 hr 07/24/22 21:44 07/25/22 07:45 Temperature 98.7 F 97.9 F Pulse Rate 65 84 Respiratory Rate 18 16 Blood Pressure 143/78 H 93/49 L Pulse Oximetry 97 93 Oxygen Delivery Method Room Air Room Air BMI result Body Mass Index 52.2 Labs Results: 07/07/22 23:59 07/07/22 23:59 Medications Medications Current Medications Acetaminophen (Acetaminophen 325 Mg Tablet) 975 mg PO TID [facility] Last Admin: 07/25/22 09:09 Dose: 975 mg Al Hydroxide/Mg Hydroxide (Magnesium Hydrox/Alum Hydrox 30 Ml Oral.Susp) 30 ml PO Q6H PRN PRN Reason: Heartburn/Nausea Apixaban (Apixaban 2.5 Mg Tablet) 2.5 mg PO BID [facility] Last Admin: 07/25/22 09:08 Dose: 2.5 mg Ascorbic Acid (Ascorbic Acid 500 Mg Tablet) 1,000 mg PO DAILY@1200 [facility] Last Admin: 07/25/22 13:22 Dose: 1,000 mg Bacitracin (Bacitracin Oint 14 Gm Tube) 1 appl TOPICAL DAILY PRN; Protocol PRN Reason: left medial ankle when dressing change Divalproex Sodium (Divalproex Sodium Sprinkles 125 Mg ) 250 mg PO TID [facility] Last Admin: 07/25/22 09:08 Dose: 250 mg Fluoxetine HCl (Fluoxetine Hcl 10 Mg Capsule) 30 mg PO DAILY [facility] Last Admin: 07/25/22 09:08 Dose: 30 mg Gabapentin (Gabapentin 300 Mg Capsule) 900 mg PO TID [facility] Last Admin: 07/25/22 09:08 Dose: 900 mg Guaifenesin/Dextromethorphan (Guaifenesin Dm 100/10/5 Ml 5 Ml Syrup) 5 ml PO Q4H PRN PRN Reason: Cough Last Admin: 07/25/22 13:57 Dose: 5 ml Hydrocortisone (Hydrocortisone 2.5 % Rectal Cr 30 Gm Tube) 1 appl [place] BID [facility] Last Admin: 07/25/22 13:22 Dose: Not Given Hydroxyzine HCl (Hydroxyzine Hcl 25 Mg Tablet) 25 mg PO Q6H PRN PRN Reason: Anxiety Last Admin: 07/19/22 01:44 Dose: 25 mg Lidocaine (Lidocaine 5 % Ointment 35 Gm) 1 appl TOPICAL Q6H PRN; Protocol PRN Reason: moderate pain Last Admin: 07/22/22 05:00 Dose: 1 appl Loperamide HCl (Loperamide Hcl 2 Mg Capsule) 4 mg PO Q4H PRN PRN Reason: Diarrhea Last Admin: 07/25/22 13:23 Dose: 4 mg Lorazepam (Lorazepam 1 Mg Tablet) 1 mg PO BEDTIME [facility] Last Admin: 07/24/22 21:22 Dose: 1 mg Lorazepam (Lorazepam 0.5 Mg Tablet) 0.5 mg PO BID PRN PRN Reason: Anxiety Last Admin: 07/25/22 13:21 Dose: 0.5 mg Magnesium Hydroxide (Milk Of Magnesia 30 Ml Oral.Susp) 30 ml PO DAILY PRN PRN Reason: Constipation Melatonin (Melatonin 3 Mg Tablet) 9 mg PO BEDTIME [facility] Last Admin: 07/24/22 21:22 Dose: 9 mg Multi-Ingred Cream/Lotion/Oil/Oint (Mineral Oil/Petrolatum,White 106 Gm Tube) 1 appl TOPICAL BID [facility] Last Admin: 07/25/22 09:44 Dose: Not Given Multivitamins/Vitamin C (Multivitamin Tablet) 1 tab PO DAILY [facility] Last Admin: 07/25/22 09:08 Dose: 1 tab Pt Own (Biotene) 1 each BUCCAL Q6H PRN PRN Reason: Dry Mouth Last Admin: 07/18/22 21:21 Dose: 1 each Pt Own (Xylimelts) 1 each BUCCAL Q6H PRN PRN Reason: Dry Mouth Last Admin: 07/25/22 03:25 Dose: 1 each Nystatin (Nystatin Powder 15 Gm Bottle) 1 appl TOPICAL BID [facility] Last Admin: 07/25/22 09:44 Dose: Not Given Omeprazole (Omeprazole 40 Mg Capsule.Dr) 40 mg PO DAILY@0630 [facility] Last Admin: 07/25/22 06:03 Dose: 40 mg Pharmacy Consult (Consult Rx Perform Med Rec) 1 each MISCELLANE ONCE PRN PRN Reason: Consult order Polyethylene Glycol (Polyethylene Glycol 3350 17 Gm Powd.Pack) 17 gm PO DAILY [facility] Last Admin: 07/25/22 09:15 Dose: Not Given Potassium Chloride (Potassium Chloride Er 10 Meq Capsule.Er) 10 meq PO DAILY [facility] Last Admin: 07/25/22 09:07 Dose: 10 meq Senna/Docusate Sodium (Sennosides/Docusate Sodium Tablet) 1 tab PO BEDTIME [facility] Last Admin: 07/24/22 21:29 Dose: Not Given Simethicone (Simethicone 80 Mg Tab.Chew) 80 mg PO QIDWMHS PRN PRN Reason: bloating Last Admin: 07/19/22 09:12 Dose: 80 mg Torsemide (Torsemide 20 Mg Tablet) 20 mg PO BID [facility]; Protocol Last Admin: 07/25/22 09:09 Dose: 20 mg Torsemide (Torsemide 20 Mg Tablet) 20 mg PO DAILY PRN; Protocol PRN Reason: swelling Trazodone HCl (Trazodone Hcl 50 Mg Tablet) 50 mg PO BEDTIME PRN PRN Reason: insomnia Last Admin: 07/23/22 20:25 Dose: 50 mg Vitamin D (Cholecalciferol (Vitamin D3) 25 Mcg Tablet) 50 mcg PO DAILY@1200 [facility] Last Admin: 07/25/22 13:22 Dose: 50 mcg Allergies Allergies Allergy/AdvReac Type Severity Reaction Status Date / Time adhesive tape [ADHESIVE TAPE] Allergy Unknown RASH Verified 07/07/22 22:06 penicillin V Allergy Unknown Unknown Verified 07/07/22 22:06 Penicillins [PCN] Allergy Unknown HIVES Verified 07/07/22 22:06 Sulfa (Sulfonamide Allergy Unknown HIVES Verified 07/07/22 22:06 Antibiotics) [SULFA(SULFONAMIDE ANTIBIOTICS)] sulfacetamide Allergy Unknown Unknown Verified 07/07/22 22:06 Latex, Natural Rubber Allergy Unknown Verified 07/10/22 18:00 adhesive tape Allergy Unknown Unknown Uncoded 07/07/22 22:06 Assessment & Plan Assessment & Plan (1) MDD (major depressive disorder), recurrent episode, moderate: Status: Acute Code(s): F33.1 - Major depressive disorder, recurrent, moderate (2) WINSTON (generalized anxiety disorder): Status: Acute Code(s): F41.1 - Generalized anxiety disorder (3) Sleep apnea with use of continuous positive airway pressure (CPAP): Status: Acute Code(s): G47.30 - Sleep apnea, unspecified (4) Borderline personality disorder: Status: Acute Code(s): F60.3 - Borderline personality disorder (5) Post traumatic stress disorder (PTSD): Status: Acute Code(s): F43.10 - Post-traumatic stress disorder, unspecified Plan Tasneem is a 76 y.o. female who carries a dx of MDD recurrent, WINSTON, PTSD, and BPD. Pt presented to [facility] on 07/07/22 after she disclosed to her daughter suicidal thoughts and passive plan to drink bleach. Pt has co-morbid medical issues of bilateral LE lymphedema, ERUM with CPAP, atrial fib, CHF, CKD, carpal tunnel, arthritis/ osteoarthritis in knees (?bone on bone? pain, hx of rotator cuff tear. Receives cortisol inj for pain relief and takes gabapentin. Utox positive for cannabis. Denies ETOH abuse. Hx of SA by intentional OD requiring hospitalization 01/06/2021, dispo was to STR. Remote hx of IPLOC at APTU. Plan: 1. Keep Prozac up to 30 mg p.o. daily to target depression. 2. The patient had a rash most likely due to Lamictal so we will try Depakote as a mood stabilizer. So far, we had not been able to get records from [facility] so we will start a therapeutic trial today. Increase Depakote up to 250 mg p.o. t.i.d.. 3. We will try to get a new family meeting with outpatient providers for July 28. 4. Flu contact precautions. 5. Blood work for Wednesday with Depakote level, basic metabolic panel, CBC and liver function test 07/25: Added Lorazepam 0.5 mg BID PRN. Reason for contiued inpatient stay Substantial Risk for: harm to self, inability to function and med/psych decompensation Time Spent With Patient Time: Total time managing care of this patient today ____ minutes.
[2022-07-25 18:00] VITALS: BP 107/41; PULSE 74; RESP 18; TEMP 36.8; O2SAT 95
[2022-07-25] MEDS: LORazepam 1 MG TABLET PO (21:51)
[2022-07-25] MEDS: Sennosides/Docusate Sodium TABLET 1 TAB PO (21:52)
[2022-07-25] MEDS: Melatonin 3 MG TABLET 9 MG PO (21:52)
[2022-07-25] MEDS: traZODone HCL 50 MG TABLET PO (22:12)
[2022-07-26] MEDS: guaiFENesin DM 100/10/5 ML 5 ML SYRUP PO ×2 (05:34→11:57)
[2022-07-26] MEDS: Omeprazole 40 MG CAPSULE.DR PO (05:34)
[2022-07-26 08:00] VITALS: BP 112/49; PULSE 80; RESP 15; TEMP 36.6; O2SAT 93
[2022-07-26] MEDS: Gabapentin 300 MG CAPSULE 900 MG PO ×3 (09:56→21:33)
[2022-07-26] MEDS: FLUoxetine HCl 10 MG CAPSULE 30 MG PO (09:56)
[2022-07-26] MEDS: Multivitamin TABLET 1 TAB PO (09:56)
[2022-07-26] MEDS: Divalproex Sodium Sprinkles 125 MG CAP.DR.SPR 250 MG PO ×3 (09:57→21:33)
[2022-07-26] MEDS: Apixaban 2.5 MG TABLET PO ×2 (09:57→21:35)
[2022-07-26] MEDS: Torsemide 20 MG TABLET PO ×2 (09:57→21:41)
[2022-07-26] MEDS: Acetaminophen 325 MG TABLET 975 MG PO ×3 (09:57→21:31)
--- NOTE | 2022-07-26 11:05 | HO.PSYCHPN ---
Subjective Subjective Date of Service: 07/26/22 Reason For Visit: SI, depression Interim History: Patient seen and discussed with nursing. She reports diarrhea is gone. She feels better in that regard. She is still despondent about being bed ridden. She feels she lost momentum. She has limited mobility at baseline and is mostly staying in bed. Encouraged to move around the room some. She has some cough. Denies SOB. No active SI but very discouraged because of the isolation and not participating. Review of Systems Review of Systems Yes all other systems are reviewed and are negative Mental Status Exam Mental Status Exam Narrative: A&O. Obese, hospital attire, laying in bed. bilateral leg compression device. Good eye contact, attentive. No Tics or Tremors. No abnormal involuntary movements. Calm, cooperative, engaged. Non-pressured speech, spontaneous with regular rate and rhythm, normal volume and prosody. No prolonged speech latency or dysarthria. Mood is ?it's hard? affect is tearful at times. Denies SI/SIB/HI upon inquiry. Denies A/VH or delusional thought content. Thoughts are coherent, organized. No known cognitive or memory impairment. Insight/ Judgment fair and adequate. Patient Appearance: Well Grooomed Patient Orientation: Person and Situation Level of Consciousness: Awake and Appropriate Patient Behavior: Guarded and Passive Mood Description: Withdrawn Affect Description: Constricted Patient Cognition Impaired: Yes Ability to Follow Directions: Good Speech Pattern: Clear Memory Description: Episodic Impaired Diagnostics Vital Signs (24Hr): Vital Signs - 24 hr 07/25/22 18:00 07/26/22 08:00 Temperature 98.3 F 97.9 F Pulse Rate 74 80 Respiratory Rate 18 15 Blood Pressure 107/41 L 112/49 L Pulse Oximetry 95 93 Oxygen Delivery Method Room Air Room Air BMI result Body Mass Index 52.2 Labs Results: 07/07/22 23:59 07/07/22 23:59 Medications Medications Current Medications Acetaminophen (Acetaminophen 325 Mg Tablet) 975 mg PO TID [facility] Last Admin: 07/26/22 15:29 Dose: 975 mg Al Hydroxide/Mg Hydroxide (Magnesium Hydrox/Alum Hydrox 30 Ml Oral.Susp) 30 ml PO Q6H PRN PRN Reason: Heartburn/Nausea Apixaban (Apixaban 2.5 Mg Tablet) 2.5 mg PO BID [facility] Last Admin: 07/26/22 09:57 Dose: 2.5 mg Ascorbic Acid (Ascorbic Acid 500 Mg Tablet) 1,000 mg PO DAILY@1200 [facility] Last Admin: 07/26/22 11:49 Dose: 1,000 mg Bacitracin (Bacitracin Oint 14 Gm Tube) 1 appl TOPICAL DAILY PRN; Protocol PRN Reason: left medial ankle when dressing change Divalproex Sodium (Divalproex Sodium Sprinkles 125 Mg ) 250 mg PO TID [facility] Last Admin: 07/26/22 15:29 Dose: 250 mg Fluoxetine HCl (Fluoxetine Hcl 10 Mg Capsule) 30 mg PO DAILY [facility] Last Admin: 07/26/22 09:56 Dose: 30 mg Gabapentin (Gabapentin 300 Mg Capsule) 900 mg PO TID [facility] Last Admin: 07/26/22 15:29 Dose: 900 mg Guaifenesin/Dextromethorphan (Guaifenesin Dm 100/10/5 Ml 5 Ml Syrup) 5 ml PO Q4H PRN PRN Reason: Cough Last Admin: 07/26/22 11:57 Dose: 5 ml Hydrocortisone (Hydrocortisone 2.5 % Rectal Cr 30 Gm Tube) 1 appl [place] BID [facility] Last Admin: 07/26/22 10:02 Dose: Not Given Hydroxyzine HCl (Hydroxyzine Hcl 25 Mg Tablet) 25 mg PO Q6H PRN PRN Reason: Anxiety Last Admin: 07/19/22 01:44 Dose: 25 mg Lidocaine (Lidocaine 5 % Ointment 35 Gm) 1 appl TOPICAL Q6H PRN; Protocol PRN Reason: moderate pain Last Admin: 07/22/22 05:00 Dose: 1 appl Loperamide HCl (Loperamide Hcl 2 Mg Capsule) 4 mg PO Q4H PRN PRN Reason: Diarrhea Last Admin: 07/25/22 13:23 Dose: 4 mg Lorazepam (Lorazepam 1 Mg Tablet) 1 mg PO BEDTIME [facility] Last Admin: 07/25/22 21:51 Dose: 1 mg Lorazepam (Lorazepam 0.5 Mg Tablet) 0.5 mg PO BID PRN PRN Reason: Anxiety Last Admin: 07/25/22 13:21 Dose: 0.5 mg Magnesium Hydroxide (Milk Of Magnesia 30 Ml Oral.Susp) 30 ml PO DAILY PRN PRN Reason: Constipation Melatonin (Melatonin 3 Mg Tablet) 9 mg PO BEDTIME [facility] Last Admin: 07/25/22 21:52 Dose: 9 mg Multi-Ingred Cream/Lotion/Oil/Oint (Mineral Oil/Petrolatum,White 106 Gm Tube) 1 appl TOPICAL BID [facility] Last Admin: 07/26/22 10:02 Dose: Not Given Multivitamins/Vitamin C (Multivitamin Tablet) 1 tab PO DAILY [facility] Last Admin: 07/26/22 09:56 Dose: 1 tab Pt Own (Biotene) 1 each BUCCAL Q6H PRN PRN Reason: Dry Mouth Last Admin: 07/18/22 21:21 Dose: 1 each Pt Own (Xylimelts) 1 each BUCCAL Q6H PRN PRN Reason: Dry Mouth Last Admin: 07/25/22 22:11 Dose: 1 each Nystatin (Nystatin Powder 15 Gm Bottle) 1 appl TOPICAL BID [facility] Last Admin: 07/26/22 10:02 Dose: Not Given Omeprazole (Omeprazole 40 Mg Capsule.Dr) 40 mg PO DAILY@0630 [facility] Last Admin: 07/26/22 05:34 Dose: 40 mg Pharmacy Consult (Consult Rx Perform Med Rec) 1 each MISCELLANE ONCE PRN PRN Reason: Consult order Polyethylene Glycol (Polyethylene Glycol 3350 17 Gm Powd.Pack) 17 gm PO DAILY [facility] Last Admin: 07/26/22 10:01 Dose: Not Given Potassium Chloride (Potassium Chloride Er 10 Meq Capsule.Er) 10 meq PO DAILY [facility] Last Admin: 07/26/22 09:57 Dose: 10 meq Senna/Docusate Sodium (Sennosides/Docusate Sodium Tablet) 1 tab PO BEDTIME [facility] Last Admin: 07/25/22 21:52 Dose: 1 tab Simethicone (Simethicone 80 Mg Tab.Chew) 80 mg PO QIDWMHS PRN PRN Reason: bloating Last Admin: 07/19/22 09:12 Dose: 80 mg Torsemide (Torsemide 20 Mg Tablet) 20 mg PO BID [facility]; Protocol Last Admin: 07/26/22 09:57 Dose: 20 mg Torsemide (Torsemide 20 Mg Tablet) 20 mg PO DAILY PRN; Protocol PRN Reason: swelling Trazodone HCl (Trazodone Hcl 50 Mg Tablet) 50 mg PO BEDTIME PRN PRN Reason: insomnia Last Admin: 07/25/22 22:12 Dose: 50 mg Vitamin D (Cholecalciferol (Vitamin D3) 25 Mcg Tablet) 50 mcg PO DAILY@1200 [facility] Last Admin: 07/26/22 11:49 Dose: 50 mcg Allergies Allergies Allergy/AdvReac Type Severity Reaction Status Date / Time adhesive tape [ADHESIVE TAPE] Allergy Unknown RASH Verified 07/07/22 22:06 penicillin V Allergy Unknown Unknown Verified 07/07/22 22:06 Penicillins [PCN] Allergy Unknown HIVES Verified 07/07/22 22:06 Sulfa (Sulfonamide Allergy Unknown HIVES Verified 07/07/22 22:06 Antibiotics) [SULFA(SULFONAMIDE ANTIBIOTICS)] sulfacetamide Allergy Unknown Unknown Verified 07/07/22 22:06 Latex, Natural Rubber Allergy Unknown Verified 07/10/22 18:00 adhesive tape Allergy Unknown Unknown Uncoded 07/07/22 22:06 Assessment & Plan Assessment & Plan (1) MDD (major depressive disorder), recurrent episode, moderate: Status: Acute Code(s): F33.1 - Major depressive disorder, recurrent, moderate (2) WINSTON (generalized anxiety disorder): Status: Acute Code(s): F41.1 - Generalized anxiety disorder (3) Sleep apnea with use of continuous positive airway pressure (CPAP): Status: Acute Code(s): G47.30 - Sleep apnea, unspecified (4) Borderline personality disorder: Status: Acute Code(s): F60.3 - Borderline personality disorder (5) Post traumatic stress disorder (PTSD): Status: Acute Code(s): F43.10 - Post-traumatic stress disorder, unspecified Plan Tasneem is a 76 y.o. female who carries a dx of MDD recurrent, WINSTON, PTSD, and BPD. Pt presented [place] [facility] on 07[place]07/22 after she disclosed to her daughter suicidal thoughts and passive plan to drink bleach. Pt has co-morbid medical issues of bilateral LE lymphedema, ERUM with CPAP, atrial fib, CHF, CKD, carpal tunnel, arthritis/ osteoarthritis in knees (?bone on bone? pain, hx of rotator cuff tear. Receives cortisol inj for pain relief and takes gabapentin. Utox positive for cannabis. Denies ETOH abuse. Hx of SA by intentional OD requiring hospitalization 01/06/2021, dispo was to STR. Remote hx of IPLOC at APTU. Plan: 1. Keep Prozac up to 30 mg p.o. daily to target depression. 2. The patient had a rash most likely due to Lamictal so we will try Depakote as a mood stabilizer. So far, we had not been able to get records from [facility] so we will start a therapeutic trial today. Increase Depakote up to 250 mg p.o. t.i.d.. 3. We will try to get a new family meeting with outpatient providers for July 28. 4. Flu contact precautions. 5. Blood work for Wednesday with Depakote level, basic metabolic panel, CBC and liver function test 07/25: Added Lorazepam 0.5 mg BID PRN. 07/26: Continue current plan Reason for contiued inpatient stay Substantial Risk for: harm to self and inability to function Time Spent With Patient Time: Total time managing care of this patient today ____ minutes.
[2022-07-26] MEDS: Ascorbic Acid 500 MG TABLET 1000 MG PO (11:49)
[2022-07-26] MEDS: Cholecalciferol (Vitamin D3) 25 MCG TABLET 50 MCG PO (11:49)
[2022-07-26 21:30] VITALS: BP 104/50; PULSE 80; RESP 18; O2SAT 92
[2022-07-26] MEDS: Sennosides/Docusate Sodium TABLET 1 TAB PO (21:32)
[2022-07-26] MEDS: LORazepam 1 MG TABLET PO (21:32)
[2022-07-26] MEDS: Melatonin 3 MG TABLET 9 MG PO (21:35)
[2022-07-26] MEDS: traZODone HCL 50 MG TABLET PO (21:49)
[2022-07-27] MEDS: hydrOXYzine HCL 25 MG TABLET PO (03:01)
[2022-07-27] MEDS: Omeprazole 40 MG CAPSULE.DR PO (06:31)
[2022-07-27 08:15] VITALS: BP 119/55; PULSE 77; RESP 16; TEMP 36.4; O2SAT 93
[2022-07-27] MEDS: Torsemide 20 MG TABLET PO ×3 (09:14→22:20)
[2022-07-27] MEDS: FLUoxetine HCl 10 MG CAPSULE 30 MG PO (09:15)
[2022-07-27] MEDS: Divalproex Sodium Sprinkles 125 MG CAP.DR.SPR 250 MG PO ×3 (09:15→21:11)
[2022-07-27] MEDS: Gabapentin 300 MG CAPSULE 900 MG PO ×3 (09:16→21:07)
[2022-07-27] MEDS: Acetaminophen 325 MG TABLET 975 MG PO ×3 (09:17→21:08)
[2022-07-27] MEDS: Apixaban 2.5 MG TABLET PO ×2 (09:17→21:12)
[2022-07-27] MEDS: Multivitamin TABLET 1 TAB PO (09:20)
[2022-07-27] MEDS: guaiFENesin DM 100/10/5 ML 5 ML SYRUP PO ×3 (09:21→21:29)
[2022-07-27] MEDS: Nystatin Powder 15 GM BOTTLE 1 APPL TOPICAL (09:55)
[2022-07-27] MEDS: Ascorbic Acid 500 MG TABLET 1000 MG PO (13:25)
[2022-07-27] MEDS: Cholecalciferol (Vitamin D3) 25 MCG TABLET 50 MCG PO (13:26)
--- NOTE | 2022-07-27 14:20 | P.PNPSI_ITS ---
Subjective Subjective Date of Service: 07/27/22 Reason For Visit: SI, depression Interim History: Patient seen and discussed with nursing. When asked how she is feeling: Same s different day. She is discouraged because of her isolation and having to be in the room. Limited mobility. Awaiting team meeting with SW and her daughter tomorrow to discuss disposition. She has some cough. Denies SOB. No active SI. Review of Systems Review of Systems Yes all other systems are reviewed and are negative Mental Status Exam Mental Status Exam Narrative: A&O. Obese, hospital attire, laying in bed. bilateral leg compression device. Good eye contact, attentive. No Tics or Tremors. No abnormal involuntary movements. Calm, cooperative, engaged. Non-pressured speech, spontaneous with regular rate and rhythm, normal volume and prosody. No prolonged speech latency or dysarthria. Mood is ?it's hard? affect is tearful at times. Denies SI/SIB/HI upon inquiry. Denies A/VH or delusional thought content. Thoughts are coherent, organized. No known cognitive or memory impairment. Insight/ Judgment fair and adequate. Patient Appearance: Well Grooomed Patient Orientation: Person and Situation Level of Consciousness: Awake and Appropriate Patient Behavior: Guarded and Passive Mood Description: Withdrawn Affect Description: Constricted Patient Cognition Impaired: Yes Ability to Follow Directions: Good Speech Pattern: Clear Memory Description: Episodic Impaired Diagnostics Vital Signs (24Hr): Vital Signs - 24 hr 07/26/22 21:30 07/27/22 08:15 07/27/22 16:30 Temperature 97.5 F 97.6 F Pulse Rate 80 77 Respiratory Rate 18 16 Blood Pressure 104/50 L 119/55 L Pulse Oximetry 92 93 Oxygen Delivery Method Room Air Room Air BMI result Body Mass Index 52.2 Labs Results: 07/07/22 23:59 07/07/22 23:59 Medications Medications Current Medications Acetaminophen (Acetaminophen 325 Mg Tablet) 975 mg PO TID [facility] Last Admin: 07/27/22 15:22 Dose: 975 mg Al Hydroxide/Mg Hydroxide (Magnesium Hydrox/Alum Hydrox 30 Ml Oral.Susp) 30 ml PO Q6H PRN PRN Reason: Heartburn/Nausea Apixaban (Apixaban 2.5 Mg Tablet) 2.5 mg PO BID [facility] Last Admin: 07/27/22 09:17 Dose: 2.5 mg Ascorbic Acid (Ascorbic Acid 500 Mg Tablet) 1,000 mg PO DAILY@1200 [facility] Last Admin: 07/27/22 13:25 Dose: 1,000 mg Bacitracin (Bacitracin Oint 14 Gm Tube) 1 appl TOPICAL DAILY PRN; Protocol PRN Reason: left medial ankle when dressing change Divalproex Sodium (Divalproex Sodium Sprinkles 125 Mg Sincere.) 250 mg PO TID [facility] Last Admin: 07/27/22 15:26 Dose: 250 mg Fluoxetine HCl (Fluoxetine Hcl 10 Mg Capsule) 30 mg PO DAILY [facility] Last Admin: 07/27/22 09:15 Dose: 30 mg Gabapentin (Gabapentin 300 Mg Capsule) 900 mg PO TID [facility] Last Admin: 07/27/22 15:25 Dose: 900 mg Guaifenesin/Dextromethorphan (Guaifenesin Dm 100/10/5 Ml 5 Ml Syrup) 5 ml PO Q4H PRN PRN Reason: Cough Last Admin: 07/27/22 15:27 Dose: 5 ml Hydrocortisone (Hydrocortisone 2.5 % Rectal Cr 30 Gm Tube) 1 appl [place] BID [facility] Last Admin: 07/27/22 09:21 Dose: Not Given Hydroxyzine HCl (Hydroxyzine Hcl 25 Mg Tablet) 25 mg PO Q6H PRN PRN Reason: Anxiety Last Admin: 07/27/22 03:01 Dose: 25 mg Lidocaine (Lidocaine 5 % Ointment 35 Gm) 1 appl TOPICAL Q6H PRN; Protocol PRN Reason: moderate pain Last Admin: 07/22/22 05:00 Dose: 1 appl Loperamide HCl (Loperamide Hcl 2 Mg Capsule) 4 mg PO Q4H PRN PRN Reason: Diarrhea Last Admin: 07/25/22 13:23 Dose: 4 mg Lorazepam (Lorazepam 1 Mg Tablet) 1 mg PO BEDTIME [facility] Last Admin: 07/26/22 21:32 Dose: 1 mg Lorazepam (Lorazepam 0.5 Mg Tablet) 0.5 mg PO BID PRN PRN Reason: Anxiety Last Admin: 07/25/22 13:21 Dose: 0.5 mg Magnesium Hydroxide (Milk Of Magnesia 30 Ml Oral.Susp) 30 ml PO DAILY PRN PRN Reason: Constipation Melatonin (Melatonin 3 Mg Tablet) 9 mg PO BEDTIME [facility] Last Admin: 07/26/22 21:35 Dose: 9 mg Multi-Ingred Cream/Lotion/Oil/Oint (Mineral Oil/Petrolatum,White 106 Gm Tube) 1 appl TOPICAL BID [facility] Last Admin: 07/27/22 16:32 Dose: 1 appl Multivitamins/Vitamin C (Multivitamin Tablet) 1 tab PO DAILY [facility] Last Admin: 07/27/22 09:20 Dose: 1 tab Pt Own (Biotene) 1 each BUCCAL Q6H PRN PRN Reason: Dry Mouth Last Admin: 07/18/22 21:21 Dose: 1 each Pt Own (Xylimelts) 1 each BUCCAL Q6H PRN PRN Reason: Dry Mouth Last Admin: 07/26/22 21:42 Dose: 1 each Nystatin (Nystatin Powder 15 Gm Bottle) 1 appl TOPICAL BID [facility] Last Admin: 07/27/22 09:55 Dose: 1 appl Omeprazole (Omeprazole 40 Mg Capsule.Dr) 40 mg PO DAILY@0630 [facility] Last Admin: 07/27/22 06:31 Dose: 40 mg Pharmacy Consult (Consult Rx Perform Med Rec) 1 each MISCELLANE ONCE PRN PRN Reason: Consult order Polyethylene Glycol (Polyethylene Glycol 3350 17 Gm Powd.Pack) 17 gm PO DAILY [facility] Last Admin: 07/27/22 09:22 Dose: Not Given Potassium Chloride (Potassium Chloride Er 10 Meq Capsule.Er) 10 meq PO DAILY [facility] Last Admin: 07/27/22 09:16 Dose: 10 meq Senna/Docusate Sodium (Sennosides/Docusate Sodium Tablet) 1 tab PO BEDTIME [facility] Last Admin: 07/26/22 21:32 Dose: 1 tab Simethicone (Simethicone 80 Mg Tab.Chew) 80 mg PO QIDWMHS PRN PRN Reason: bloating Last Admin: 07/19/22 09:12 Dose: 80 mg Torsemide (Torsemide 20 Mg Tablet) 20 mg PO BID [facility]; Protocol Last Admin: 07/27/22 09:14 Dose: 20 mg Torsemide (Torsemide 20 Mg Tablet) 20 mg PO DAILY PRN; Protocol PRN Reason: swelling Trazodone HCl (Trazodone Hcl 50 Mg Tablet) 50 mg PO BEDTIME PRN PRN Reason: insomnia Last Admin: 07/26/22 21:49 Dose: 50 mg Vitamin D (Cholecalciferol (Vitamin D3) 25 Mcg Tablet) 50 mcg PO DAILY@1200 [facility] Last Admin: 07/27/22 13:26 Dose: 50 mcg Allergies Allergies Allergy/AdvReac Type Severity Reaction Status Date / Time adhesive tape [ADHESIVE TAPE] Allergy Unknown RASH Verified 07/07/22 22:06 penicillin V Allergy Unknown Unknown Verified 07/07/22 22:06 Penicillins [PCN] Allergy Unknown HIVES Verified 07/07/22 22:06 Sulfa (Sulfonamide Allergy Unknown HIVES Verified 07/07/22 22:06 Antibiotics) [SULFA(SULFONAMIDE ANTIBIOTICS)] sulfacetamide Allergy Unknown Unknown Verified 07/07/22 22:06 Latex, Natural Rubber Allergy Unknown Verified 07/10/22 18:00 adhesive tape Allergy Unknown Unknown Uncoded 07/07/22 22:06 Assessment & Plan Assessment & Plan (1) MDD (major depressive disorder), recurrent episode, moderate: Status: Acute Code(s): F33.1 - Major depressive disorder, recurrent, moderate (2) WINSTON (generalized anxiety disorder): Status: Acute Code(s): F41.1 - Generalized anxiety disorder (3) Sleep apnea with use of continuous positive airway pressure (CPAP): Status: Acute Code(s): G47.30 - Sleep apnea, unspecified (4) Borderline personality disorder: Status: Acute Code(s): F60.3 - Borderline personality disorder (5) Post traumatic stress disorder (PTSD): Status: Acute Code(s): F43.10 - Post-traumatic stress disorder, unspecified Plan Tasneem is a 76 y.o. female who carries a dx of MDD recurrent, WINSTON, PTSD, and BPD. Pt presented to [facility] ED on 07/07/22 after she disclosed to her daughter suicidal thoughts and passive plan to drink bleach. Pt has co-morbid medical issues of bilateral LE lymphedema, ERUM with CPAP, atrial fib, CHF, CKD, carpal tunnel, arthritis/ osteoarthritis in knees (?bone on bone? pain, hx of rotator cuff tear. Receives cortisol inj for pain relief and takes gabapentin. Utox positive for cannabis. Denies ETOH abuse. Hx of SA by intentional OD requiring hospitalization 01/06/2021, dispo was to STR. Remote hx of IPLOC at [facility]. Plan: 1. Keep Prozac up to 30 mg p.o. daily to target depression. 2. The patient had a rash most likely due to Lamictal so we will try Depakote as a mood stabilizer. So far, we had not been able to get records from [facility] so we will start a therapeutic trial today. Increase Depakote up to 250 mg p.o. t.i.d.. 3. We will try to get a new family meeting with outpatient providers for July 28. 4. Flu contact precautions. 5. Blood work for Wednesday with Depakote level, basic metabolic panel, CBC and liver function test 07/25: Added Lorazepam 0.5 mg BID PRN. 07/26: Continue current plan 07/27: Continue current plan Reason for contiued inpatient stay Substantial Risk for: harm to self, inability to function and rapid decompensation Time Spent With Patient Time: Total time managing care of this patient today ____ minutes.
[2022-07-27 16:30] VITALS: TEMP 36.4
[2022-07-27 18:00] VITALS: PULSE 73; RESP 16; TEMP 37; O2SAT 92
--- NOTE | 2022-07-27 18:06 | PC.NURSE ---
Pt remains on isolation due to dx flu. Pt states she is doing well, but feeling a little down due to wanting socialization. Working on word search puzzles. Refused to get out of bed this shift to recliner, preferring to rest in bed. Received Robitussin DM 5ml po at 0921 and 1630 for c/o cough with effect. Intermittent non-productive cough noted. Leg wraps for lymphedema unwrapped per pt request, legs washed, dermacerin cream applied. No redness noted darlene area. F/c patent and draining clear gold urine. VS this am 97.5-77-16 119/55 O2 sat 98% rm air. Temp 97.8 at 1630. O2 sat 97% rm air.
[2022-07-27] MEDS: LORazepam 1 MG TABLET PO (21:09)
[2022-07-27] MEDS: traZODone HCL 50 MG TABLET PO (21:11)
[2022-07-27] MEDS: Melatonin 3 MG TABLET 9 MG PO (21:11)
[2022-07-28 06:00] VITALS: BP 108/58; PULSE 76; RESP 18; TEMP 36.8; O2SAT 95
[2022-07-28 08:01] LABS: Basophils Percent Auto 0.4 % (0-2); Eosinophils Absolute Auto 0.1 X10*3/uL (0.0-0.4); Eosinophils Percent Auto 2.1 % (0-4); Hematocrit 35.3 % (37.0-47.0); Hemoglobin 11.6 g/dl (12.0-16.0); Imm Gran Abs Auto 0.02 X10*3/uL (0.00-0.03); Imm Gran Pct Auto 0.4 % (0.0-0.4); Lymphocytes Absolute Auto 1.5 X10*3/uL (1.2-4.9); Lymphocytes Percent Auto 27.9 % (20-40); MANUAL DIFF FLAG SCAN; Mean Corpuscular HGB Conc 32.9 g/dl (31.0-35.0); Mean Corpuscular Hemoglobin 32.7 pg (27.0-33.0); Mean Corpuscular Volume 99.4 fL (80.0-98.0); Mean Platelet Volume 9.8 fL (9.4-12.3); Monocytes Absolute Auto 0.5 X10*3/uL (0.1-1.2); Monocytes Percent Auto 8.9 % (2-11); Neutrophils Absolute Auto 3.2 x10*3/uL (2.0-8.3); Neutrophils Percent Auto 60.3 % (45-73); Platelet Count 145 X10*3/uL (160-400); Red Blood Count 3.55 X10*6/uL (4.20-5.50); Red Cell Distribution Width 12.4 % (11.0-16.0); SCAN SMEAR FLAG 1; White Blood Count 5.3 X10*3/uL (4.8-10.8)
[2022-07-28 08:13] LABS: Alanine Aminotransferase 14 U/L (0-31); Albumin Level 2.9 g/dL (3.5-5.0); Alkaline Phosphatase 70 U/L (39-117); Anion Gap 10 (12-20); Aspartate Amino Transferase 19 U/L (5-31); Bilirubin Direct 0.2 mg/dL (0.0-0.5); Bilirubin Total 0.5 mg/dL (0.0-1.0); Blood Urea Nitrogen 17 mg/dL (9-16); Calcium 8.4 mg/dL (8.4-10.2); Carbon Dioxide 34 mmol/L (22-29); Chloride 100 mmol/L (96-108); Creatinine Clr Calc Pharmacy 87.7; Estimated Glomerular Filt Rate > 60; Glucose Random 91 mg/dL (60-115); Potassium 3.7 mmol/L (3.3-5.1); Sodium 140 mmol/L (135-145); Total Protein 5.1 g/dL (6.5-8.0)
[2022-07-28 08:23] LABS: SLIDE REVIEW VERIFIED
[2022-07-28 08:45] LABS: Valproate 31.6 mcg/mL (50.0-100.0)
[2022-07-28] MEDS: polyethylene glycoL 3350 17 GM POWD.PACK PO (09:48)
[2022-07-28] MEDS: FLUoxetine HCl 10 MG CAPSULE 30 MG PO (09:48)
[2022-07-28] MEDS: Gabapentin 300 MG CAPSULE 900 MG PO ×3 (09:49→21:17)
[2022-07-28] MEDS: Multivitamin TABLET 1 TAB PO (09:49)
[2022-07-28] MEDS: Torsemide 20 MG TABLET PO ×2 (09:49→21:18)
[2022-07-28] MEDS: Apixaban 2.5 MG TABLET PO ×2 (09:49→21:18)
[2022-07-28] MEDS: Omeprazole 40 MG CAPSULE.DR PO (09:49)
[2022-07-28] MEDS: Divalproex Sodium Sprinkles 125 MG CAP.DR.SPR 250 MG PO ×2 (09:49→14:40)
[2022-07-28] MEDS: Acetaminophen 325 MG TABLET 975 MG PO ×3 (09:49→21:19)
[2022-07-28] MEDS: Nystatin Powder 15 GM BOTTLE 1 APPL TOPICAL (09:50)
[2022-07-28] MEDS: guaiFENesin DM 100/10/5 ML 5 ML SYRUP PO (10:25)
--- NOTE | 2022-07-28 12:07 | HO.PSYCHPN ---
Subjective Subjective Date of Service: 07/28/22 Reason For Visit: SI, depression Subjective Notes: Conditional Voluntary Interim History: The nursing staff reported the patient slept until 03:00 o'clock in the morning that she woke up. She has been compliant with treatment and her appetite is lower since she got the flu. Today the social problems specialist had a family meeting with her daughter at 11:30. On interview the patient reports that she feels deconditioned after been on her bed for so many days. Mental Status Exam Mental Status Exam Patient Appearance: Well Grooomed and Appropriate Patient Orientation: Person and Situation Level of Consciousness: Awake and Appropriate Patient Behavior: Guarded and Suspicious Mood Description: Withdrawn Affect Description: Constricted Patient Cognition Impaired: Yes Ability to Follow Directions: Good Speech Pattern: Clear Hallucinations: None Delusions: Paranoid Ideation Thought Process: Distracted Thought Content: positive for [place] Judgement: Fair Diagnostics Vital Signs (24Hr): Vital Signs - 24 hr 07/27/22 16:30 07/27/22 18:00 07/28/22 06:00 Temperature 97.6 F 98.6 F 98.2 F Pulse Rate 73 76 Respiratory Rate 16 18 Blood Pressure 108/58 L Pulse Oximetry 92 95 Oxygen Delivery Method Room Air BMI result Body Mass Index 52.2 Labs Results: 07/28/22 07:38 07/28/22 07:38 Labs: Laboratory Results - last 48 hr 07/28/22 07/28/22 07/28/22 07:38 07:38 07:38 WBC 5.3 RBC 3.55 L Hgb 11.6 L Hct 35.3 L MCV 99.4 H MCH 32.7 MCHC 32.9 RDW 12.4 Plt Count 145 L D MPV 9.8 Immature Gran % (Auto) 0.4 Neut % (Auto) 60.3 Lymph % (Auto) 27.9 Garrett % (Auto) 8.9 Eos % (Auto) 2.1 Baso % (Auto) 0.4 Lymph # (Auto) 1.5 Garrett # (Auto) 0.5 Eos # (Auto) 0.1 Baso # (Auto) 0.0 Abs Immat Gran (auto) 0.02 Absolute Neuts (auto) 3.2 Absolute Nucleated RBC 0.000 Nucleated RBC % (auto) 0.0 Smear Tech's Comments VERIFIED Sodium 140 Potassium 3.7 Chloride 100 Carbon Dioxide 34 H Anion Gap 10 L BUN 17 H Creatinine 0.72 Estim Creat Clear Calc 87.7 Estimated GFR > 60 Random Glucose 91 Calcium 8.4 D Total Bilirubin 0.5 Direct Bilirubin 0.2 AST 19 ALT 14 Alkaline Phosphatase 70 Total Protein 5.1 L Albumin 2.9 L Valproic Acid 31.6 L Medications Medications Current Medications Acetaminophen (Acetaminophen 325 Mg Tablet) 975 mg PO TID [facility] Last Admin: 07/28/22 09:49 Dose: 975 mg Al Hydroxide/Mg Hydroxide (Magnesium Hydrox/Alum Hydrox 30 Ml Oral.Susp) 30 ml PO Q6H PRN PRN Reason: Heartburn/Nausea Apixaban (Apixaban 2.5 Mg Tablet) 2.5 mg PO BID [facility] Last Admin: 07/28/22 09:49 Dose: 2.5 mg Ascorbic Acid (Ascorbic Acid 500 Mg Tablet) 1,000 mg PO DAILY@1200 [facility] Last Admin: 07/27/22 13:25 Dose: 1,000 mg Bacitracin (Bacitracin Oint 14 Gm Tube) 1 appl TOPICAL DAILY PRN; Protocol PRN Reason: left medial ankle when dressing change Divalproex Sodium (Divalproex Sodium Sprinkles 125 Mg Sincere.) 250 mg PO TID [facility] Last Admin: 07/28/22 09:49 Dose: 250 mg Fluoxetine HCl (Fluoxetine Hcl 10 Mg Capsule) 30 mg PO DAILY [facility] Last Admin: 07/28/22 09:48 Dose: 30 mg Gabapentin (Gabapentin 300 Mg Capsule) 900 mg PO TID [facility] Last Admin: 07/28/22 09:49 Dose: 900 mg Guaifenesin/Dextromethorphan (Guaifenesin Dm 100/10/5 Ml 5 Ml Syrup) 5 ml PO Q4H PRN PRN Reason: Cough Last Admin: 07/28/22 10:25 Dose: 5 ml Hydrocortisone (Hydrocortisone 2.5 % Rectal Cr 30 Gm Tube) 1 appl [place] BID [facility] Last Admin: 07/28/22 09:49 Dose: Not Given Hydroxyzine HCl (Hydroxyzine Hcl 25 Mg Tablet) 25 mg PO Q6H PRN PRN Reason: Anxiety Last Admin: 07/27/22 03:01 Dose: 25 mg Lidocaine (Lidocaine 5 % Ointment 35 Gm) 1 appl TOPICAL Q6H PRN; Protocol PRN Reason: moderate pain Last Admin: 07/22/22 05:00 Dose: 1 appl Loperamide HCl (Loperamide Hcl 2 Mg Capsule) 4 mg PO Q4H PRN PRN Reason: Diarrhea Last Admin: 07/25/22 13:23 Dose: 4 mg Lorazepam (Lorazepam 0.5 Mg Tablet) 0.5 mg PO BID PRN PRN Reason: Anxiety Last Admin: 07/25/22 13:21 Dose: 0.5 mg Magnesium Hydroxide (Milk Of Magnesia 30 Ml Oral.Susp) 30 ml PO DAILY PRN PRN Reason: Constipation Melatonin (Melatonin 3 Mg Tablet) 9 mg PO BEDTIME [facility] Last Admin: 07/27/22 21:11 Dose: 9 mg Multi-Ingred Cream/Lotion/Oil/Oint (Mineral Oil/Petrolatum,White 106 Gm Tube) 1 appl TOPICAL BID [facility] Last Admin: 07/28/22 09:50 Dose: Not Given Multivitamins/Vitamin C (Multivitamin Tablet) 1 tab PO DAILY [facility] Last Admin: 07/28/22 09:49 Dose: 1 tab Pt Own (Biotene) 1 each BUCCAL Q6H PRN PRN Reason: Dry Mouth Last Admin: 07/18/22 21:21 Dose: 1 each Pt Own (Xylimelts) 1 each BUCCAL Q6H PRN PRN Reason: Dry Mouth Last Admin: 07/27/22 21:20 Dose: 1 each Nystatin (Nystatin Powder 15 Gm Bottle) 1 appl TOPICAL BID [facility] Last Admin: 07/28/22 09:50 Dose: 1 appl Omeprazole (Omeprazole 40 Mg Capsule.Dr) 40 mg PO DAILY@0630 [facility] Last Admin: 07/28/22 09:49 Dose: 40 mg Pharmacy Consult (Consult Rx Perform Med Rec) 1 each MISCELLANE ONCE PRN PRN Reason: Consult order Polyethylene Glycol (Polyethylene Glycol 3350 17 Gm Powd.Pack) 17 gm PO DAILY [facility] Last Admin: 07/28/22 09:48 Dose: 17 gm Potassium Chloride (Potassium Chloride Er 10 Meq Capsule.Er) 10 meq PO DAILY [facility] Last Admin: 07/28/22 09:48 Dose: 10 meq Senna/Docusate Sodium (Sennosides/Docusate Sodium Tablet) 1 tab PO BEDTIME [facility] Last Admin: 07/27/22 22:09 Dose: Not Given Simethicone (Simethicone 80 Mg Tab.Chew) 80 mg PO QIDWMHS PRN PRN Reason: bloating Last Admin: 07/19/22 09:12 Dose: 80 mg Torsemide (Torsemide 20 Mg Tablet) 20 mg PO BID [facility]; Protocol Last Admin: 07/28/22 09:49 Dose: 20 mg Torsemide (Torsemide 20 Mg Tablet) 20 mg PO DAILY PRN; Protocol PRN Reason: swelling Last Admin: 07/27/22 22:11 Dose: 20 mg Trazodone HCl (Trazodone Hcl 50 Mg Tablet) 50 mg PO BEDTIME PRN PRN Reason: insomnia Last Admin: 07/27/22 21:11 Dose: 50 mg Vitamin D (Cholecalciferol (Vitamin D3) 25 Mcg Tablet) 50 mcg PO DAILY@1200 [facility] Last Admin: 07/27/22 13:26 Dose: 50 mcg Allergies Allergies Allergy/AdvReac Type Severity Reaction Status Date / Time adhesive tape [ADHESIVE TAPE] Allergy Unknown RASH Verified 07/07/22 22:06 penicillin V Allergy Unknown Unknown Verified 07/07/22 22:06 Penicillins [PCN] Allergy Unknown HIVES Verified 07/07/22 22:06 Sulfa (Sulfonamide Allergy Unknown HIVES Verified 07/07/22 22:06 Antibiotics) [SULFA(SULFONAMIDE ANTIBIOTICS)] sulfacetamide Allergy Unknown Unknown Verified 07/07/22 22:06 Latex, Natural Rubber Allergy Unknown Verified 07/10/22 18:00 adhesive tape Allergy Unknown Unknown Uncoded 07/07/22 22:06 Assessment & Plan Assessment & Plan (1) MDD (major depressive disorder), recurrent episode, moderate: Status: Acute Code(s): F33.1 - Major depressive disorder, recurrent, moderate (2) WINSTON (generalized anxiety disorder): Status: Acute Code(s): F41.1 - Generalized anxiety disorder (3) Sleep apnea with use of continuous positive airway pressure (CPAP): Status: Acute Code(s): G47.30 - Sleep apnea, unspecified (4) Borderline personality disorder: Status: Acute Code(s): F60.3 - Borderline personality disorder (5) Post traumatic stress disorder (PTSD): Status: Acute Code(s): F43.10 - Post-traumatic stress disorder, unspecified Plan Tasneem is a 76 y.o. female who carries a dx of MDD recurrent, WINSTON, PTSD, and BPD. Pt presented to [place] ED on 07/07/22 after she disclosed to her daughter suicidal thoughts and passive plan to drink bleach. Pt has co-morbid medical issues of bilateral LE lymphedema, ERUM with CPAP, atrial fib, CHF, CKD, carpal tunnel, arthritis/ osteoarthritis in knees (?bone on bone? pain, hx of rotator cuff tear. Receives cortisol inj for pain relief and takes gabapentin. Utox positive for cannabis. Denies ETOH abuse. Hx of SA by intentional OD requiring hospitalization 01/06/2021, dispo was to STR. [facility] Plan: 1. Keep Prozac up to 30 mg p.o. daily to target depression. 2. The patient had a rash most likely due to Lamictal so we will try Depakote as a mood stabilizer. So far, we had not been able to get records from [facility] so we will start a therapeutic trial today. Increase Depakote up to 250 mg p.o. t.i.d.. 3. We will try to get a new family meeting with outpatient providers for July 28. 4. Flu contact precautions. 5. Blood work for Wednesday with Depakote level, basic metabolic panel, CBC and liver function test. Her Depakote level came back subtherapeutic. We will change Depakote up to 250 mg p.o. b.i.d. and 500 mg p.o. q.h.s.. Patient educated on: diagnosis Informed Consent: understands Reason for contiued inpatient stay Substantial Risk for: inability to function, rapid decompensation and med/psych decompensation Time Spent With Patient Time: Total time managing care of this patient today __20__ minutes.
[2022-07-28] MEDS: Ascorbic Acid 500 MG TABLET 1000 MG PO (14:40)
[2022-07-28] MEDS: Cholecalciferol (Vitamin D3) 25 MCG TABLET 50 MCG PO (14:40)
[2022-07-28] MEDS: LORazepam 0.5 MG TABLET PO (14:41)
[2022-07-28 18:00] VITALS: BP 116/49; PULSE 77; RESP 16; TEMP 36.2; O2SAT 94
[2022-07-28] MEDS: Divalproex Sodium Sprinkles 125 MG CAP.DR.SPR 500 MG PO (21:17)
[2022-07-28] MEDS: Melatonin 3 MG TABLET 9 MG PO (21:18)
[2022-07-28] MEDS: traZODone HCL 50 MG TABLET PO (21:19)
[2022-07-28] MEDS: LORazepam 1 MG TABLET PO (21:20)
[2022-07-29] MEDS: traZODone HCL 50 MG TABLET PO (02:34)
[2022-07-29] MEDS: Omeprazole 40 MG CAPSULE.DR PO (05:54)
[2022-07-29 10:00] VITALS: BP 103/50; PULSE 71; RESP 16; O2SAT 93
[2022-07-29] MEDS: Acetaminophen 325 MG TABLET 975 MG PO ×3 (10:21→21:32)
[2022-07-29] MEDS: Apixaban 2.5 MG TABLET PO (10:21)
[2022-07-29] MEDS: Gabapentin 300 MG CAPSULE 900 MG PO ×3 (10:22→21:32)
[2022-07-29] MEDS: Divalproex Sodium Sprinkles 125 MG CAP.DR.SPR 250 MG PO ×2 (10:26→14:50)
[2022-07-29] MEDS: FLUoxetine HCl 10 MG CAPSULE 30 MG PO (10:28)
[2022-07-29] MEDS: Multivitamin TABLET 1 TAB PO (10:30)
[2022-07-29] MEDS: Torsemide 20 MG TABLET PO ×2 (10:33→21:33)
[2022-07-29] MEDS: guaiFENesin DM 100/10/5 ML 5 ML SYRUP PO ×2 (10:36→21:57)
[2022-07-29] MEDS: Cholecalciferol (Vitamin D3) 25 MCG TABLET 50 MCG PO (12:28)
[2022-07-29] MEDS: LORazepam 0.5 MG TABLET PO (12:28)
[2022-07-29] MEDS: Ascorbic Acid 500 MG TABLET 1000 MG PO (12:29)
--- NOTE | 2022-07-29 13:22 | P.PNPSI_ITS ---
Subjective Subjective Date of Service: 07/29/22 Reason For Visit: SI, depression Subjective Notes: Conditional Voluntary Interim History: The nursing staff reported the patient had been compliant with treatment. Yesterday we increased the Depakote up to a 1000 mg daily in order to get a therapeutic range. The patient had a condition and since she had a flu while he was in the unit. We are waiting for a PT consult an occupational therapist will assess about how feasible will be to be discharged to the community. On interview the patient reported that she had diarrhea but her affect was brighter. Mental Status Exam Mental Status Exam Patient Appearance: Well Grooomed Patient Orientation: Person and Situation Level of Consciousness: Awake and Appropriate Patient Behavior: Guarded and Passive Mood Description: Withdrawn Affect Description: Constricted Patient Cognition Impaired: No Ability to Follow Directions: Good Speech Pattern: Clear Hallucinations: None Delusions: Not Present Thought Process: Linear Thought Content: positive for Circumstantial Judgement: Fair Diagnostics Vital Signs (24Hr): Vital Signs - 24 hr 07/28/22 18:00 07/29/22 10:00 Temperature 97.2 F Pulse Rate 77 71 Respiratory Rate 16 16 Blood Pressure 116/49 L 103/50 L Pulse Oximetry 94 93 Oxygen Delivery Method Room Air Room Air BMI result Body Mass Index 52.2 Labs Results: 07/28/22 07:38 07/28/22 07:38 Labs: Laboratory Results - last 48 hr 07/28/22 07/28/22 07/28/22 07:38 07:38 07:38 WBC 5.3 RBC 3.55 L Hgb 11.6 L Hct 35.3 L MCV 99.4 H MCH 32.7 MCHC 32.9 RDW 12.4 Plt Count 145 L D MPV 9.8 Immature Gran % (Auto) 0.4 Neut % (Auto) 60.3 Lymph % (Auto) 27.9 [place] % (Auto) 8.9 Eos % (Auto) 2.1 Baso % (Auto) 0.4 Lymph # (Auto) 1.5 [place] # (Auto) 0.5 Eos # (Auto) 0.1 Baso # (Auto) 0.0 Abs Immat Gran (auto) 0.02 Absolute Neuts (auto) 3.2 Absolute Nucleated RBC 0.000 Nucleated RBC % (auto) 0.0 Smear Tech's Comments VERIFIED Sodium 140 Potassium 3.7 Chloride 100 Carbon Dioxide 34 H Anion Gap 10 L BUN 17 H Creatinine 0.72 Estim Creat Clear Calc 87.7 Estimated GFR > 60 Random Glucose 91 Calcium 8.4 D Total Bilirubin 0.5 Direct Bilirubin 0.2 AST 19 ALT 14 Alkaline Phosphatase 70 Total Protein 5.1 L Albumin 2.9 L Valproic Acid 31.6 L Medications Medications Current Medications Acetaminophen (Acetaminophen 325 Mg Tablet) 975 mg PO TID [facility] Last Admin: 07/29/22 10:21 Dose: 975 mg Al Hydroxide/Mg Hydroxide (Magnesium Hydrox/Alum Hydrox 30 Ml Oral.Susp) 30 ml PO Q6H PRN PRN Reason: Heartburn/Nausea Apixaban (Apixaban 2.5 Mg Tablet) 2.5 mg PO BID [facility] Last Admin: 07/29/22 10:21 Dose: 2.5 mg Ascorbic Acid (Ascorbic Acid 500 Mg Tablet) 1,000 mg PO DAILY@1200 [facility] Last Admin: 07/29/22 12:29 Dose: 1,000 mg Bacitracin (Bacitracin Oint 14 Gm Tube) 1 appl TOPICAL DAILY PRN; Protocol PRN Reason: left medial ankle when dressing change Divalproex Sodium (Divalproex Sodium Sprinkles 125 Mg Cap.) 250 mg PO BID@0830,1330 [facility] Last Admin: 07/29/22 10:26 Dose: 250 mg Divalproex Sodium (Divalproex Sodium Sprinkles 125 Mg ) 500 mg PO BEDTIME [facility] Last Admin: 07/28/22 21:17 Dose: 500 mg Fluoxetine HCl (Fluoxetine Hcl 10 Mg Capsule) 30 mg PO DAILY [facility] Last Admin: 07/29/22 10:28 Dose: 30 mg Gabapentin (Gabapentin 300 Mg Capsule) 900 mg PO TID [facility] Last Admin: 07/29/22 10:22 Dose: 900 mg Guaifenesin/Dextromethorphan (Guaifenesin Dm 100/10/5 Ml 5 Ml Syrup) 5 ml PO Q4H PRN PRN Reason: Cough Last Admin: 07/29/22 10:36 Dose: 5 ml Hydrocortisone (Hydrocortisone 2.5 % Rectal Cr 30 Gm Tube) 1 appl [place] BID [facility] Last Admin: 07/29/22 10:31 Dose: Not Given Hydroxyzine HCl (Hydroxyzine Hcl 25 Mg Tablet) 25 mg PO Q6H PRN PRN Reason: Anxiety Last Admin: 07/27/22 03:01 Dose: 25 mg Lidocaine (Lidocaine 5 % Ointment 35 Gm) 1 appl TOPICAL Q6H PRN; Protocol PRN Reason: moderate pain Last Admin: 07/22/22 05:00 Dose: 1 appl Loperamide HCl (Loperamide Hcl 2 Mg Capsule) 4 mg PO Q4H PRN PRN Reason: Diarrhea Last Admin: 07/25/22 13:23 Dose: 4 mg Lorazepam (Lorazepam 0.5 Mg Tablet) 0.5 mg PO BID PRN PRN Reason: Anxiety Last Admin: 07/29/22 12:28 Dose: 0.5 mg Lorazepam (Lorazepam 1 Mg Tablet) 1 mg PO BEDTIME [facility] Last Admin: 07/28/22 21:20 Dose: 1 mg Magnesium Hydroxide (Milk Of Magnesia 30 Ml Oral.Susp) 30 ml PO DAILY PRN PRN Reason: Constipation Melatonin (Melatonin 3 Mg Tablet) 9 mg PO BEDTIME [facility] Last Admin: 07/28/22 21:18 Dose: 9 mg Multi-Ingred Cream/Lotion/Oil/Oint (Mineral Oil/Petrolatum,White 106 Gm Tube) 1 appl TOPICAL BID [facility] Last Admin: 07/29/22 10:31 Dose: Not Given Multivitamins/Vitamin C (Multivitamin Tablet) 1 tab PO DAILY [facility] Last Admin: 07/29/22 10:30 Dose: 1 tab Pt Own (Biotene) 1 each BUCCAL Q6H PRN PRN Reason: Dry Mouth Last Admin: 07/18/22 21:21 Dose: 1 each Pt Own (Xylimelts) 1 each BUCCAL Q6H PRN PRN Reason: Dry Mouth Last Admin: 07/28/22 21:20 Dose: 1 each Nystatin (Nystatin Powder 15 Gm Bottle) 1 appl TOPICAL BID [facility] Last Admin: 07/29/22 10:31 Dose: Not Given Omeprazole (Omeprazole 40 Mg Capsule.Dr) 40 mg PO DAILY@0630 [facility] Last Admin: 07/29/22 05:54 Dose: 40 mg Pharmacy Consult (Consult Rx Perform Med Rec) 1 each MISCELLANE ONCE PRN PRN Reason: Consult order Polyethylene Glycol (Polyethylene Glycol 3350 17 Gm Powd.Pack) 17 gm PO DAILY [facility] Last Admin: 07/29/22 10:30 Dose: Not Given Potassium Chloride (Potassium Chloride Er 10 Meq Capsule.Er) 10 meq PO DAILY [facility] Last Admin: 07/29/22 10:26 Dose: 10 meq Senna/Docusate Sodium (Sennosides/Docusate Sodium Tablet) 1 tab PO BEDTIME [facility] Last Admin: 07/28/22 21:21 Dose: Not Given Simethicone (Simethicone 80 Mg Tab.Chew) 80 mg PO QIDWMHS PRN PRN Reason: bloating Last Admin: 07/19/22 09:12 Dose: 80 mg Torsemide (Torsemide 20 Mg Tablet) 20 mg PO BID [facility]; Protocol Last Admin: 07/29/22 10:33 Dose: 20 mg Torsemide (Torsemide 20 Mg Tablet) 20 mg PO DAILY PRN; Protocol PRN Reason: swelling Last Admin: 07/27/22 22:11 Dose: 20 mg Trazodone HCl (Trazodone Hcl 50 Mg Tablet) 50 mg PO BEDTIME PRN PRN Reason: insomnia Last Admin: 07/29/22 02:34 Dose: 50 mg Vitamin D (Cholecalciferol (Vitamin D3) 25 Mcg Tablet) 50 mcg PO DAILY@1200 [facility] Last Admin: 07/29/22 12:28 Dose: 50 mcg Allergies Allergies Allergy/AdvReac Type Severity Reaction Status Date / Time adhesive tape [ADHESIVE TAPE] Allergy Unknown RASH Verified 07/07/22 22:06 penicillin V Allergy Unknown Unknown Verified 07/07/22 22:06 Penicillins [PCN] Allergy Unknown HIVES Verified 07/07/22 22:06 Sulfa (Sulfonamide Allergy Unknown HIVES Verified 07/07/22 22:06 Antibiotics) [SULFA(SULFONAMIDE ANTIBIOTICS)] sulfacetamide Allergy Unknown Unknown Verified 07/07/22 22:06 Latex, Natural Rubber Allergy Unknown Verified 07/10/22 18:00 adhesive tape Allergy Unknown Unknown Uncoded 07/07/22 22:06 Assessment & Plan Assessment & Plan (1) MDD (major depressive disorder), recurrent episode, moderate: Status: Acute Code(s): F33.1 - Major depressive disorder, recurrent, moderate (2) WINSTON (generalized anxiety disorder): Status: Acute Code(s): F41.1 - Generalized anxiety disorder (3) Sleep apnea with use of continuous positive airway pressure (CPAP): Status: Acute Code(s): G47.30 - Sleep apnea, unspecified (4) Borderline personality disorder: Status: Acute Code(s): F60.3 - Borderline personality disorder (5) Post traumatic stress disorder (PTSD): Status: Acute Code(s): F43.10 - Post-traumatic stress disorder, unspecified Plan Tasneem is a 76 y.o. female who carries a dx of MDD recurrent, WINSTON, PTSD, and BPD. Pt presented to [facility] ED on 07/07/22 after she disclosed to her daughter suicidal thoughts and passive plan to drink bleach. Pt has co-morbid medical issues of bilateral LE lymphedema, ERUM with CPAP, atrial fib, CHF, CKD, carpal tunnel, arthritis/ osteoarthritis in knees (?bone on bone? pain, hx of rotator cuff tear. Receives cortisol inj for pain relief and takes gabapentin. Utox positive for cannabis. Denies ETOH abuse. Hx of SA by intentional OD requiring hospitalization 01/06/2021, dispo was to STR. Remote hx of IPLOC at [facility]TU. Plan: 1. Keep Prozac up to 30 mg p.o. daily to target depression. 2. The patient had a rash most likely due to Lamictal so we will try Depakote as a mood stabilizer. So far, we had not been able to get records from [facility] so we will start a therapeutic trial today. Increase Depakote up to 250 mg p.o. t.i.d.. 3. We will try to get a new family meeting with outpatient providers for July 28. 4. Flu contact precautions. 5. Blood work for Wednesday with Depakote level, basic metabolic panel, CBC and liver function test. Her Depakote level came back subtherapeutic. We will change Depakote up to 250 mg p.o. b.i.d. and 500 mg p.o. q.h.s. on July 28. 6. PT and occupational therapist assessment for discharge planning. 7. Imodium PRN diarrhea. Reason for contiued inpatient stay Substantial Risk for: inability to function, rapid decompensation and med/psych decompensation Time Spent With Patient Time: Total time managing care of this patient today __20__ minutes.
[2022-07-29 13:46] VITALS: BP 103/50; PULSE 71; O2SAT 93
[2022-07-29] MEDS: Loperamide HCl 2 MG CAPSULE 4 MG PO ×2 (16:31→21:57)
[2022-07-29 18:00] VITALS: BP 116/61; PULSE 77; RESP 16; TEMP 36.2; O2SAT 94
[2022-07-29] MEDS: Melatonin 3 MG TABLET 9 MG PO (21:32)
[2022-07-29] MEDS: Divalproex Sodium Sprinkles 125 MG CAP.DR.SPR 500 MG PO (21:33)
[2022-07-29] MEDS: LORazepam 1 MG TABLET PO (21:34)
[2022-07-30] MEDS: Omeprazole 40 MG CAPSULE.DR PO (05:54)
[2022-07-30 07:00] VITALS: BMI 52.0
[2022-07-30 07:30] VITALS: BP 84/46; PULSE 84; RESP 16; TEMP 36.9; O2SAT 92
[2022-07-30] MEDS: Gabapentin 300 MG CAPSULE 900 MG PO ×3 (10:04→21:26)
[2022-07-30] MEDS: Apixaban 2.5 MG TABLET PO ×2 (10:06→21:26)
[2022-07-30] MEDS: Acetaminophen 325 MG TABLET 975 MG PO ×3 (10:07→21:25)
[2022-07-30] MEDS: FLUoxetine HCl 10 MG CAPSULE 30 MG PO (10:07)
[2022-07-30] MEDS: Divalproex Sodium Sprinkles 125 MG CAP.DR.SPR 250 MG PO ×2 (10:07→14:47)
[2022-07-30] MEDS: Multivitamin TABLET 1 TAB PO (10:08)
[2022-07-30] MEDS: guaiFENesin DM 100/10/5 ML 5 ML SYRUP PO ×2 (10:15→21:53)
[2022-07-30] MEDS: LORazepam 0.5 MG TABLET PO (11:01)
[2022-07-30] MEDS: Cholecalciferol (Vitamin D3) 25 MCG TABLET 50 MCG PO (11:41)
[2022-07-30] MEDS: Ascorbic Acid 500 MG TABLET 1000 MG PO (11:41)
--- NOTE | 2022-07-30 15:33 | P.PNPSI_ITS ---
Subjective Subjective Date of Service: 07/30/22 Reason For Visit: SI, depression Subjective Notes: Conditional Voluntary Interim History: The nursing staff reported the patient had been mostly in her room, she slept well last night and she took her medications. Physical therapy it assessed her and it is clear that the patient the condition it after the flu that she contracted in the unit. She will need subacute rehab. She complained of diarrhea and she used Imodium. The social security specialist will contact [facility] and report about the findings of physical therapy. Most likely the discharge planning will be to subacute rehab Mental Status Exam Mental Status Exam Patient Appearance: Appropriate Patient Orientation: Person and Situation Level of Consciousness: Awake and Appropriate Patient Behavior: Cooperative Mood Description: Calm Affect Description: Blunted and Angry Patient Cognition Impaired: Yes Ability to Follow Directions: Good Speech Pattern: Clear Hallucinations: None Delusions: Not Present Thought Process: Linear Thought Content: positive for Circumstantial Judgement: Fair Diagnostics Vital Signs (24Hr): Vital Signs - 24 hr 07/29/22 18:00 07/30/22 07:30 Temperature 97.2 F 98.4 F Pulse Rate 77 84 Respiratory Rate 16 16 Blood Pressure 116/61 84/46 L Pulse Oximetry 94 92 Oxygen Delivery Method Room Air Room Air BMI result Body Mass Index 52.0 Labs 07/28/22 07:38 07/28/22 07:38 Medications Medications Current Medications Acetaminophen (Acetaminophen 325 Mg Tablet) 975 mg PO TID [facility] Last Admin: 07/30/22 14:46 Dose: 975 mg Al Hydroxide/Mg Hydroxide (Magnesium Hydrox/Alum Hydrox 30 Ml Oral.Susp) 30 ml PO Q6H PRN PRN Reason: Heartburn/Nausea Apixaban (Apixaban 2.5 Mg Tablet) 2.5 mg PO BID [facility] Last Admin: 07/30/22 10:06 Dose: 2.5 mg Ascorbic Acid (Ascorbic Acid 500 Mg Tablet) 1,000 mg PO DAILY@1200 [facility] Last Admin: 07/30/22 11:41 Dose: 1,000 mg Bacitracin (Bacitracin Oint 14 Gm Tube) 1 appl TOPICAL DAILY PRN; Protocol PRN Reason: left medial ankle when dressing change Divalproex Sodium (Divalproex Sodium Sprinkles 125 Mg ) 250 mg PO BID@0830,1330 [facility] Last Admin: 07/30/22 14:47 Dose: 250 mg Divalproex Sodium (Divalproex Sodium Sprinkles 125 Mg ) 500 mg PO BEDTIME [facility] Last Admin: 07/29/22 21:33 Dose: 500 mg Fluoxetine HCl (Fluoxetine Hcl 10 Mg Capsule) 30 mg PO DAILY [facility] Last Admin: 07/30/22 10:07 Dose: 30 mg Gabapentin (Gabapentin 300 Mg Capsule) 900 mg PO TID [facility] Last Admin: 07/30/22 14:47 Dose: 900 mg Guaifenesin/Dextromethorphan (Guaifenesin Dm 100/10/5 Ml 5 Ml Syrup) 5 ml PO Q4H PRN PRN Reason: Cough Last Admin: 07/30/22 10:15 Dose: 5 ml Hydrocortisone (Hydrocortisone 2.5 % Rectal Cr 30 Gm Tube) 1 appl [place] BID [facility] Last Admin: 07/30/22 10:08 Dose: Not Given Hydroxyzine HCl (Hydroxyzine Hcl 25 Mg Tablet) 25 mg PO Q6H PRN PRN Reason: Anxiety Last Admin: 07/27/22 03:01 Dose: 25 mg Lidocaine (Lidocaine 5 % Ointment 35 Gm) 1 appl TOPICAL Q6H PRN; Protocol PRN Reason: moderate pain Last Admin: 07/22/22 05:00 Dose: 1 appl Loperamide HCl (Loperamide Hcl 2 Mg Capsule) 4 mg PO Q4H PRN PRN Reason: Diarrhea Last Admin: 07/29/22 21:57 Dose: 4 mg Lorazepam (Lorazepam 0.5 Mg Tablet) 0.5 mg PO BID PRN PRN Reason: Anxiety Last Admin: 07/30/22 11:01 Dose: 0.5 mg Lorazepam (Lorazepam 1 Mg Tablet) 1 mg PO BEDTIME [facility] Last Admin: 07/29/22 21:34 Dose: 1 mg Magnesium Hydroxide (Milk Of Magnesia 30 Ml Oral.Susp) 30 ml PO DAILY PRN PRN Reason: Constipation Melatonin (Melatonin 3 Mg Tablet) 9 mg PO BEDTIME [facility] Last Admin: 07/29/22 21:32 Dose: 9 mg Multi-Ingred Cream/Lotion/Oil/Oint (Mineral Oil/Petrolatum,White 106 Gm Tube) 1 appl TOPICAL BID [facility] Last Admin: 07/30/22 10:08 Dose: Not Given Multivitamins/Vitamin C (Multivitamin Tablet) 1 tab PO DAILY [facility] Last Admin: 07/30/22 10:08 Dose: 1 tab Pt Own (Biotene) 1 each BUCCAL Q6H PRN PRN Reason: Dry Mouth Last Admin: 07/18/22 21:21 Dose: 1 each Pt Own (Xylimelts) 1 each BUCCAL Q6H PRN PRN Reason: Dry Mouth Last Admin: 07/29/22 21:35 Dose: 1 each Nystatin (Nystatin Powder 15 Gm Bottle) 1 appl TOPICAL BID [facility] Last Admin: 07/30/22 10:09 Dose: Not Given Omeprazole (Omeprazole 40 Mg Capsule.Dr) 40 mg PO DAILY@0630 [facility] Last Admin: 07/30/22 05:54 Dose: 40 mg Pharmacy Consult (Consult Rx Perform Med Rec) 1 each MISCELLANE ONCE PRN PRN Reason: Consult order Polyethylene Glycol (Polyethylene Glycol 3350 17 Gm Powd.Pack) 17 gm PO DAILY [facility] Last Admin: 07/30/22 10:09 Dose: Not Given Potassium Chloride (Potassium Chloride Er 10 Meq Capsule.Er) 10 meq PO DAILY [facility] Last Admin: 07/30/22 10:06 Dose: 10 meq Senna/Docusate Sodium (Sennosides/Docusate Sodium Tablet) 1 tab PO BEDTIME [facility] Last Admin: 07/29/22 21:35 Dose: Not Given Simethicone (Simethicone 80 Mg Tab.Chew) 80 mg PO QIDWMHS PRN PRN Reason: bloating Last Admin: 07/19/22 09:12 Dose: 80 mg Torsemide (Torsemide 20 Mg Tablet) 20 mg PO BID [facility]; Protocol Last Admin: 07/30/22 10:06 Dose: Not Given Torsemide (Torsemide 20 Mg Tablet) 20 mg PO DAILY PRN; Protocol PRN Reason: swelling Last Admin: 07/27/22 22:11 Dose: 20 mg Trazodone HCl (Trazodone Hcl 50 Mg Tablet) 50 mg PO BEDTIME PRN PRN Reason: insomnia Last Admin: 07/29/22 02:34 Dose: 50 mg Vitamin D (Cholecalciferol (Vitamin D3) 25 Mcg Tablet) 50 mcg PO DAILY@1200 [facility] Last Admin: 07/30/22 11:41 Dose: 50 mcg Allergies Allergies Allergy/AdvReac Type Severity Reaction Status Date / Time adhesive tape [ADHESIVE TAPE] Allergy Unknown RASH Verified 07/07/22 22:06 penicillin V Allergy Unknown Unknown Verified 07/07/22 22:06 Penicillins [PCN] Allergy Unknown HIVES Verified 07/07/22 22:06 Sulfa (Sulfonamide Allergy Unknown HIVES Verified 07/07/22 22:06 Antibiotics) [SULFA(SULFONAMIDE ANTIBIOTICS)] sulfacetamide Allergy Unknown Unknown Verified 07/07/22 22:06 Latex, Natural Rubber Allergy Unknown Verified 07/10/22 18:00 adhesive tape Allergy Unknown Unknown Uncoded 07/07/22 22:06 Assessment & Plan Assessment & Plan (1) MDD (major depressive disorder), recurrent episode, moderate: Status: Acute Code(s): F33.1 - Major depressive disorder, recurrent, moderate (2) WINSTON (generalized anxiety disorder): Status: Acute Code(s): F41.1 - Generalized anxiety disorder (3) Sleep apnea with use of continuous positive airway pressure (CPAP): Status: Acute Code(s): G47.30 - Sleep apnea, unspecified (4) Borderline personality disorder: Status: Acute Code(s): F60.3 - Borderline personality disorder (5) Post traumatic stress disorder (PTSD): Status: Acute Code(s): F43.10 - Post-traumatic stress disorder, unspecified Plan Tasneem is a 76 y.o. female who carries a dx of MDD recurrent, WINSTON, PTSD, and BPD. Pt [place] [facility] [place]07[place]22 after she disclosed to her daughter suicidal thoughts and passive plan to drink bleach. Pt has co-morbid medical issues of bilateral LE lymphedema, ERUM with CPAP, atrial fib, CHF, CKD, carpal tunnel, arthritis/ osteoarthritis in knees (?bone on bone? pain, hx of rotator cuff tear. Receives cortisol inj for pain relief and takes gabapentin. Utox positive for cannabis. Denies ETOH abuse. Hx of SA by intentional OD requiring hospitalization 01/06/2021, dispo was to STR. Remote hx of IPLOC at APTU. Plan: 1. Keep Prozac up to 30 mg p.o. daily to target depression. 2. The patient had a rash most likely due to Lamictal so we will try Depakote as a mood stabilizer. So far, we had not been able to get records from [facility] so we will start a therapeutic trial today. Increase Depakote up to 250 mg p.o. t.i.d.. 3. We will try to get a new family meeting with outpatient providers for July 28. 4. Flu contact precautions. 5. Blood work for Wednesday with Depakote level, basic metabolic panel, CBC and liver function test. Her Depakote level came back subtherapeutic. We will change Depakote up to 250 mg p.o. b.i.d. and 500 mg p.o. q.h.s. on July 28. 6. PT and occupational therapist assessment for discharge planning. 7. Imodium PRN diarrhea. 8. Disposition to subacute rehab Reason for contiued inpatient stay Substantial Risk for: inability to function, rapid decompensation and med/psych decompensation Time Spent With Patient Time: Total time managing care of this patient today ____ minutes.
[2022-07-30 18:00] VITALS: BP 118/56; PULSE 88; RESP 18; TEMP 36.4; O2SAT 93
[2022-07-30] MEDS: Divalproex Sodium Sprinkles 125 MG CAP.DR.SPR 500 MG PO (21:26)
[2022-07-30] MEDS: Melatonin 3 MG TABLET 9 MG PO (21:27)
[2022-07-30] MEDS: LORazepam 1 MG TABLET PO (21:27)
[2022-07-30] MEDS: Torsemide 20 MG TABLET PO (21:29)
[2022-07-30] MEDS: traZODone HCL 50 MG TABLET PO (21:30)
[2022-07-31] MEDS: Omeprazole 40 MG CAPSULE.DR PO (06:02)
[2022-07-31] MEDS: guaiFENesin DM 100/10/5 ML 5 ML SYRUP PO ×2 (06:09→21:17)
[2022-07-31 07:30] VITALS: BP 104/65; PULSE 73; RESP 16; TEMP 36.6; O2SAT 92
[2022-07-31] MEDS: Torsemide 20 MG TABLET PO ×2 (10:26→21:21)
[2022-07-31] MEDS: Gabapentin 300 MG CAPSULE 900 MG PO ×3 (10:27→21:20)
[2022-07-31] MEDS: Multivitamin TABLET 1 TAB PO (10:27)
[2022-07-31] MEDS: Divalproex Sodium Sprinkles 125 MG CAP.DR.SPR 250 MG PO ×2 (10:27→14:04)
[2022-07-31] MEDS: Acetaminophen 325 MG TABLET 975 MG PO ×3 (10:27→21:18)
[2022-07-31] MEDS: FLUoxetine HCl 10 MG CAPSULE 30 MG PO (10:28)
[2022-07-31] MEDS: Apixaban 2.5 MG TABLET PO ×2 (10:28→21:20)
[2022-07-31] MEDS: LORazepam 0.5 MG TABLET PO (10:58)
[2022-07-31] MEDS: Nystatin Powder 15 GM BOTTLE 1 APPL TOPICAL (11:22)
[2022-07-31] MEDS: Cholecalciferol (Vitamin D3) 25 MCG TABLET 50 MCG PO (13:08)
[2022-07-31] MEDS: Ascorbic Acid 500 MG TABLET 1000 MG PO (13:09)
--- NOTE | 2022-07-31 16:03 | P.PNPSI_ITS ---
Subjective Subjective Date of Service: 07/31/22 Reason For Visit: SI, depression Subjective Notes: Conditional Voluntary Interim History: The nursing staff reported the patient had been compliant with treatment, she was able to get out of her bed and she could walk with a lot of shipping assistant with a walker and staff. The licensed clinical social worker had start a referral for different short-term rehab so. She has refused her CPAP last night but she slept 7 hours. On interview the patient was in the common area with stable mood. No safety concerns at this moment. Mental Status Exam Mental Status Exam Patient Appearance: Appropriate Patient Orientation: Person and Situation Level of Consciousness: Awake Patient Behavior: Cooperative Mood Description: Withdrawn Affect Description: Constricted Ability to Follow Directions: Good Speech Pattern: Clear Hallucinations: None Delusions: Not Present Thought Process: Distracted and Linear Thought Content: positive for [place] Judgement: Fair Diagnostics Vital Signs (24Hr): Vital Signs - 24 hr 07/30/22 18:00 07/31/22 07:30 Temperature 97.6 F 97.9 F Pulse Rate 88 73 Respiratory Rate 18 16 Blood Pressure 118/56 L 104/65 Pulse Oximetry 93 92 Oxygen Delivery Method Room Air Room Air BMI result Body Mass Index 52.0 Labs 07/28/22 07:38 07/28/22 07:38 Medications Medications Current Medications Acetaminophen (Acetaminophen 325 Mg Tablet) 975 mg PO TID [facility] Last Admin: 07/31/22 14:04 Dose: 975 mg Al Hydroxide/Mg Hydroxide (Magnesium Hydrox/Alum Hydrox 30 Ml Oral.Susp) 30 ml PO Q6H PRN PRN Reason: Heartburn/Nausea Apixaban (Apixaban 2.5 Mg Tablet) 2.5 mg PO BID [facility] Last Admin: 07/31/22 10:28 Dose: 2.5 mg Ascorbic Acid (Ascorbic Acid 500 Mg Tablet) 1,000 mg PO DAILY@1200 [facility] Last Admin: 07/31/22 13:09 Dose: 1,000 mg Bacitracin (Bacitracin Oint 14 Gm Tube) 1 appl TOPICAL DAILY PRN; Protocol PRN Reason: left medial ankle when dressing change Divalproex Sodium (Divalproex Sodium Sprinkles 125 Mg ) 250 mg PO BID@0830,1330 [facility] Last Admin: 07/31/22 14:04 Dose: 250 mg Divalproex Sodium (Divalproex Sodium Sprinkles 125 Mg ) 500 mg PO BEDTIME [facility] Last Admin: 07/30/22 21:26 Dose: 500 mg Fluoxetine HCl (Fluoxetine Hcl 10 Mg Capsule) 30 mg PO DAILY [facility] Last Admin: 07/31/22 10:28 Dose: 30 mg Gabapentin (Gabapentin 300 Mg Capsule) 900 mg PO TID [facility] Last Admin: 07/31/22 14:04 Dose: 900 mg Guaifenesin/Dextromethorphan (Guaifenesin Dm 100/10/5 Ml 5 Ml Syrup) 5 ml PO Q4H PRN PRN Reason: Cough Last Admin: 07/31/22 06:09 Dose: 5 ml Hydrocortisone (Hydrocortisone 2.5 % Rectal Cr 30 Gm Tube) 1 appl [place] BID [facility] Last Admin: 07/31/22 10:34 Dose: Not Given Hydroxyzine HCl (Hydroxyzine Hcl 25 Mg Tablet) 25 mg PO Q6H PRN PRN Reason: Anxiety Last Admin: 07/27/22 03:01 Dose: 25 mg Lidocaine (Lidocaine 5 % Ointment 35 Gm) 1 appl TOPICAL Q6H PRN; Protocol PRN Reason: moderate pain Last Admin: 07/22/22 05:00 Dose: 1 appl Loperamide HCl (Loperamide Hcl 2 Mg Capsule) 4 mg PO Q4H PRN PRN Reason: Diarrhea Last Admin: 07/29/22 21:57 Dose: 4 mg Lorazepam (Lorazepam 0.5 Mg Tablet) 0.5 mg PO BID PRN PRN Reason: Anxiety Last Admin: 07/31/22 10:58 Dose: 0.5 mg Lorazepam (Lorazepam 1 Mg Tablet) 1 mg PO BEDTIME [facility] Last Admin: 07/30/22 21:27 Dose: 1 mg Magnesium Hydroxide (Milk Of Magnesia 30 Ml Oral.Susp) 30 ml PO DAILY PRN PRN Reason: Constipation Melatonin (Melatonin 3 Mg Tablet) 9 mg PO BEDTIME [facility] Last Admin: 07/30/22 21:27 Dose: 9 mg Multi-Ingred Cream/Lotion/Oil/Oint (Mineral Oil/Petrolatum,White 106 Gm Tube) 1 appl TOPICAL BID [facility] Last Admin: 07/31/22 10:34 Dose: Not Given Multivitamins/Vitamin C (Multivitamin Tablet) 1 tab PO DAILY [facility] Last Admin: 07/31/22 10:27 Dose: 1 tab Pt Own (Biotene) 1 each BUCCAL Q6H PRN PRN Reason: Dry Mouth Last Admin: 07/18/22 21:21 Dose: 1 each Pt Own (Xylimelts) 1 each BUCCAL Q6H PRN PRN Reason: Dry Mouth Last Admin: 07/30/22 21:53 Dose: 1 each Nystatin (Nystatin Powder 15 Gm Bottle) 1 appl TOPICAL BID [facility] Last Admin: 07/31/22 11:22 Dose: 1 appl Omeprazole (Omeprazole 40 Mg Capsule.Dr) 40 mg PO DAILY@0630 [facility] Last Admin: 07/31/22 06:02 Dose: 40 mg Pharmacy Consult (Consult Rx Perform Med Rec) 1 each MISCELLANE ONCE PRN PRN Reason: Consult order Polyethylene Glycol (Polyethylene Glycol 3350 17 Gm Powd.Pack) 17 gm PO DAILY [facility] Last Admin: 07/31/22 10:58 Dose: Not Given Potassium Chloride (Potassium Chloride Er 10 Meq Capsule.Er) 10 meq PO DAILY [facility] Last Admin: 07/31/22 10:26 Dose: 10 meq Senna/Docusate Sodium (Sennosides/Docusate Sodium Tablet) 1 tab PO BEDTIME [facility] Last Admin: 07/30/22 21:29 Dose: Not Given Simethicone (Simethicone 80 Mg Tab.Chew) 80 mg PO QIDWMHS PRN PRN Reason: bloating Last Admin: 07/19/22 09:12 Dose: 80 mg Torsemide (Torsemide 20 Mg Tablet) 20 mg PO BID [facility]; Protocol Last Admin: 07/31/22 10:26 Dose: 20 mg Torsemide (Torsemide 20 Mg Tablet) 20 mg PO DAILY PRN; Protocol PRN Reason: swelling Last Admin: 07/27/22 22:11 Dose: 20 mg Trazodone HCl (Trazodone Hcl 50 Mg Tablet) 50 mg PO BEDTIME PRN PRN Reason: insomnia Last Admin: 07/30/22 21:30 Dose: 50 mg Vitamin D (Cholecalciferol (Vitamin D3) 25 Mcg Tablet) 50 mcg PO DAILY@1200 [facility] Last Admin: 07/31/22 13:08 Dose: 50 mcg Allergies Allergies Allergy/AdvReac Type Severity Reaction Status Date / Time adhesive tape [ADHESIVE TAPE] Allergy Unknown RASH Verified 07/07/22 22:06 penicillin V Allergy Unknown Unknown Verified 07/07/22 22:06 Penicillins [PCN] Allergy Unknown HIVES Verified 07/07/22 22:06 Sulfa (Sulfonamide Allergy Unknown HIVES Verified 07/07/22 22:06 Antibiotics) [SULFA(SULFONAMIDE ANTIBIOTICS)] sulfacetamide Allergy Unknown Unknown Verified 07/07/22 22:06 Latex, Natural Rubber Allergy Unknown Verified 07/10/22 18:00 adhesive tape Allergy Unknown Unknown Uncoded 07/07/22 22:06 Assessment & Plan Assessment & Plan (1) MDD (major depressive disorder), recurrent episode, moderate: Status: Acute Code(s): F33.1 - Major depressive disorder, recurrent, moderate (2) WINSTON (generalized anxiety disorder): Status: Acute Code(s): F41.1 - Generalized anxiety disorder (3) Sleep apnea with use of continuous positive airway pressure (CPAP): Status: Acute Code(s): G47.30 - Sleep apnea, unspecified (4) Borderline personality disorder: Status: Acute Code(s): F60.3 - Borderline personality disorder (5) Post traumatic stress disorder (PTSD): Status: Acute Code(s): F43.10 - Post-traumatic stress disorder, unspecified Plan Tasneem is a 76 y.o. female who carries a dx of MDD recurrent, WINSTON, PTSD, and BPD. Pt [place] [facility] [place]22 after she disclosed to her daughter suicidal thoughts and passive plan to drink bleach. Pt has co-morbid medical issues of bilateral LE lymphedema, ERUM with CPAP, atrial fib, CHF, CKD, carpal tunnel, arthritis/ osteoarthritis in knees (?bone on bone? pain, hx of rotator cuff tear. Receives cortisol inj for pain relief and takes gabapentin. Utox positive for cannabis. Denies ETOH abuse. Hx of SA by intentional OD requiring hospitalization 01/06/2021, dispo was to STR. Remote hx of IPLOC at APTU. Plan: 1. Keep Prozac up to 30 mg p.o. daily to target depression. 2. The patient had a rash most likely due to Lamictal so we will try Depakote as a mood stabilizer. So far, we had not been able to get records from [facility] so we will start a therapeutic trial today. Increase Depakote up to 250 mg p.o. t.i.d.. 3. We will try to get a new family meeting with outpatient providers for July 28. 4. Flu contact precautions. 5. Blood work for Wednesday with Depakote level, basic metabolic panel, CBC and liver function test. Her Depakote level came back subtherapeutic. We will change Depakote up to 250 mg p.o. b.i.d. and 500 mg p.o. q.h.s. on July 28. 6. PT and occupational therapist assessment for discharge planning. 7. Imodium PRN diarrhea. 8. Disposition to subacute rehab Reason for contiued inpatient stay Substantial Risk for: inability to function, rapid decompensation and med/psych decompensation Time Spent With Patient Time: Total time managing care of this patient today __20__ minutes.
[2022-07-31 18:00] VITALS: BP 131/83; PULSE 92; RESP 18; TEMP 36.4; O2SAT 94
[2022-07-31] MEDS: LORazepam 1 MG TABLET PO (21:20)
[2022-07-31] MEDS: Divalproex Sodium Sprinkles 125 MG CAP.DR.SPR 500 MG PO (21:20)
[2022-07-31] MEDS: Melatonin 3 MG TABLET 9 MG PO (21:21)
[2022-07-31] MEDS: traZODone HCL 50 MG TABLET PO (21:22)
[2022-08-01 06:00] VITALS: BP 118/53; PULSE 80; RESP 16; TEMP 36.1; O2SAT 94
[2022-08-01] MEDS: Omeprazole 40 MG CAPSULE.DR PO (06:22)
[2022-08-01] MEDS: guaiFENesin DM 100/10/5 ML 5 ML SYRUP PO ×3 (06:30→20:46)
[2022-08-01] MEDS: FLUoxetine HCl 10 MG CAPSULE 30 MG PO (08:32)
[2022-08-01] MEDS: Apixaban 2.5 MG TABLET PO ×2 (08:32→20:42)
[2022-08-01] MEDS: Gabapentin 300 MG CAPSULE 900 MG PO ×3 (08:32→20:43)
[2022-08-01] MEDS: Torsemide 20 MG TABLET PO ×2 (08:32→20:44)
[2022-08-01] MEDS: Divalproex Sodium Sprinkles 125 MG CAP.DR.SPR 250 MG PO ×2 (08:33→15:12)
[2022-08-01] MEDS: Multivitamin TABLET 1 TAB PO (08:34)
[2022-08-01] MEDS: Nystatin Powder 15 GM BOTTLE 1 APPL TOPICAL (08:34)
[2022-08-01] MEDS: Milk of Magnesia 30 ML ORAL.SUSP PO (09:52)
[2022-08-01] MEDS: LORazepam 0.5 MG TABLET PO (09:52)
[2022-08-01] MEDS: Acetaminophen 325 MG TABLET 975 MG PO ×2 (15:11→20:41)
[2022-08-01] MEDS: Ascorbic Acid 500 MG TABLET 1000 MG PO (15:11)
[2022-08-01] MEDS: Cholecalciferol (Vitamin D3) 25 MCG TABLET 50 MCG PO (15:12)
--- NOTE | 2022-08-01 17:41 | P.PNPSI_ITS ---
Subjective Subjective Date of Service: 08/01/22 Reason For Visit: SI, depression Interim History: Patient pleasant on approach. Staff reported that she was able to transfer (with multiple people assisting) of which patient was proud to report. Patient said that she is overall doing well, had good visit with daughter. Patient reports increased GERD symptoms following meals as well as continued loose stool; patient shared that she was incontinent. Belt Worker agreed to look at medications and see if anything could be changed and patient agreed to having famotidine with meals and to have any stool softener/laxative made p.r.n.. Mental Status Exam Mental Status Exam Patient Appearance: Appropriate Patient Orientation: Person, Place and Situation Level of Consciousness: Awake and Appropriate Patient Behavior: Appropriate and Cooperative Mood Description: Calm and Appropriate Affect Description: Calm and Appropriate Ability to Follow Directions: Good Speech Pattern: Clear Hallucinations: None Delusions: Not Present Thought Process: Goal Oriented and Linear (somtimes mildly circumstantial) Thought Content: positive for [place] and positive for [place] Judgement: Fair Diagnostics Vital Signs (24Hr): Vital Signs - 24 hr 07/31/22 18:00 08/01/22 06:00 Temperature 97.6 F 97.0 F Pulse Rate 92 80 Respiratory Rate 18 16 Blood Pressure 131/83 118/53 L Pulse Oximetry 94 94 Oxygen Delivery Method Room Air Room Air BMI result Body Mass Index 52.0 Labs 07/28/22 07:38 07/28/22 07:38 Medications Medications Current Medications Acetaminophen (Acetaminophen 325 Mg Tablet) 975 mg PO TID [facility] Last Admin: 08/01/22 15:11 Dose: 975 mg Al Hydroxide/Mg Hydroxide (Magnesium Hydrox/Alum Hydrox 30 Ml Oral.Susp) 30 ml PO Q6H PRN PRN Reason: Heartburn/Nausea Apixaban (Apixaban 2.5 Mg Tablet) 2.5 mg PO BID [facility] Last Admin: 08/01/22 08:32 Dose: 2.5 mg Ascorbic Acid (Ascorbic Acid 500 Mg Tablet) 1,000 mg PO DAILY@1200 [facility] Last Admin: 08/01/22 15:11 Dose: 1,000 mg Bacitracin (Bacitracin Oint 14 Gm Tube) 1 appl TOPICAL DAILY PRN; Protocol PRN Reason: left medial ankle when dressing change Divalproex Sodium (Divalproex Sodium Sprinkles 125 Mg ) 250 mg PO BID@0830,1330 [facility] Last Admin: 08/01/22 15:12 Dose: 250 mg Divalproex Sodium (Divalproex Sodium Sprinkles 125 Mg ) 500 mg PO B EDTIME [facility] Last Admin: 07/31/22 21:20 Dose: 500 mg Fluoxetine HCl (Fluoxetine Hcl 10 Mg Capsule) 30 mg PO DAILY [facility] Last Admin: 08/01/22 08:32 Dose: 30 mg Gabapentin (Gabapentin 300 Mg Capsule) 900 mg PO TID [facility] Last Admin: 08/01/22 15:11 Dose: 900 mg Guaifenesin/Dextromethorphan (Guaifenesin Dm 100/10/5 Ml 5 Ml Syrup) 5 ml PO Q4H PRN PRN Reason: Cough Last Admin: 08/01/22 15:18 Dose: 5 ml Hydrocortisone (Hydrocortisone 2.5 % Rectal Cr 30 Gm Tube) 1 appl [place] BID [facility] Last Admin: 08/01/22 08:33 Dose: Not Given Hydroxyzine HCl (Hydroxyzine Hcl 25 Mg Tablet) 25 mg PO Q6H PRN PRN Reason: Anxiety Last Admin: 07/27/22 03:01 Dose: 25 mg Lidocaine (Lidocaine 5 % Ointment 35 Gm) 1 appl TOPICAL Q6H PRN; Protocol PRN Reason: moderate pain Last Admin: 07/22/22 05:00 Dose: 1 appl Loperamide HCl (Loperamide Hcl 2 Mg Capsule) 4 mg PO Q4H PRN PRN Reason: Diarrhea Last Admin: 07/29/22 21:57 Dose: 4 mg Lorazepam (Lorazepam 0.5 Mg Tablet) 0.5 mg PO BID PRN PRN Reason: Anxiety Last Admin: 08/01/22 09:52 Dose: 0.5 mg Lorazepam (Lorazepam 1 Mg Tablet) 1 mg PO BEDTIME [facility] Last Admin: 07/31/22 21:20 Dose: 1 mg Magnesium Hydroxide (Milk Of Magnesia 30 Ml Oral.Susp) 30 ml PO DAILY PRN PRN Reason: Constipation Last Admin: 08/01/22 09:52 Dose: 30 ml Melatonin (Melatonin 3 Mg Tablet) 9 mg PO BEDTIME [facility] Last Admin: 07/31/22 21:21 Dose: 9 mg Multi-Ingred Cream/Lotion/Oil/Oint (Mineral Oil/Petrolatum,White 106 Gm Tube) 1 appl TOPICAL BID [facility] Last Admin: 08/01/22 08:34 Dose: Not Given Multivitamins/Vitamin C (Multivitamin Tablet) 1 tab PO DAILY [facility] Last Admin: 08/01/22 08:34 Dose: 1 tab Pt Own (Biotene) 1 each BUCCAL Q6H PRN PRN Reason: Dry Mouth Last Admin: 07/18/22 21:21 Dose: 1 each Pt Own (Xylimelts) 1 each BUCCAL Q6H PRN PRN Reason: Dry Mouth Last Admin: 07/31/22 21:16 Dose: 1 each Nystatin (Nystatin Powder 15 Gm Bottle) 1 appl TOPICAL BID [facility] Last Admin: 08/01/22 08:34 Dose: 1 appl Omeprazole (Omeprazole 40 Mg Capsule.Dr) 40 mg PO DAILY@0630 [facility] Last Admin: 08/01/22 06:22 Dose: 40 mg Pharmacy Consult (Consult Rx Perform Med Rec) 1 each MISCELLANE ONCE PRN PRN Reason: Consult order Polyethylene Glycol (Polyethylene Glycol 3350 17 Gm Powd.Pack) 17 gm PO DAILY [facility] Last Admin: 08/01/22 08:37 Dose: Not Given Potassium Chloride (Potassium Chloride Er 10 Meq Capsule.Er) 10 meq PO DAILY [facility] Last Admin: 08/01/22 08:32 Dose: 10 meq Senna/Docusate Sodium (Sennosides/Docusate Sodium Tablet) 1 tab PO BEDTIME [facility] Last Admin: 07/31/22 21:21 Dose: Not Given Simethicone (Simethicone 80 Mg Tab.Chew) 80 mg PO QIDWMHS PRN PRN Reason: bloating Last Admin: 07/19/22 09:12 Dose: 80 mg Torsemide (Torsemide 20 Mg Tablet) 20 mg PO BID [facility]; Protocol Last Admin: 08/01/22 08:32 Dose: 20 mg Torsemide (Torsemide 20 Mg Tablet) 20 mg PO DAILY PRN; Protocol PRN Reason: swelling Last Admin: 07/27/22 22:11 Dose: 20 mg Trazodone HCl (Trazodone Hcl 50 Mg Tablet) 50 mg PO BEDTIME PRN PRN Reason: insomnia Last Admin: 07/31/22 21:22 Dose: 50 mg Vitamin D (Cholecalciferol (Vitamin D3) 25 Mcg Tablet) 50 mcg PO DAILY@1200 [facility] Last Admin: 08/01/22 15:12 Dose: 50 mcg Allergies Allergies Allergy/AdvReac Type Severity Reaction Status Date / Time adhesive tape [ADHESIVE TAPE] Allergy Unknown RASH Verified 07/07/22 22:06 penicillin V Allergy Unknown Unknown Verified 07/07/22 22:06 Penicillins [PCN] Allergy Unknown HIVES Verified 07/07/22 22:06 Sulfa (Sulfonamide Allergy Unknown HIVES Verified 07/07/22 22:06 Antibiotics) [SULFA(SULFONAMIDE ANTIBIOTICS)] sulfacetamide Allergy Unknown Unknown Verified 07/07/22 22:06 Latex, Natural Rubber Allergy Unknown Verified 07/10/22 18:00 adhesive tape Allergy Unknown Unknown Uncoded 07/07/22 22:06 Assessment & Plan Assessment & Plan (1) MDD (major depressive disorder), recurrent episode, moderate: Status: Acute Code(s): F33.1 - Major depressive disorder, recurrent, moderate (2) WINSTON (generalized anxiety disorder): Status: Acute Code(s): F41.1 - Generalized anxiety disorder (3) Sleep apnea with use of continuous positive airway pressure (CPAP): Status: Acute Code(s): G47.30 - Sleep apnea, unspecified (4) Borderline personality disorder: Status: Acute Code(s): F60.3 - Borderline personality disorder (5) Post traumatic stress disorder (PTSD): Status: Acute Code(s): F43.10 - Post-traumatic stress disorder, unspecified Plan Tasneem is a 76 y.o. female who carries a dx of MDD recurrent, WINSTON, PTSD, and BPD. Pt presented [place] [facility] [place] [facility] [place]22 after she disclosed to her daughter suicidal thoughts and passive plan to drink bleach. Pt has co-morbid medical issues of bilateral LE lymphedema, ERUM with CPAP, atrial fib, CHF, CKD, carpal tunnel, arthritis/ osteoarthritis in knees (?bone on bone? pain, hx of rotator cuff tear. Receives cortisol inj for pain relief and takes gabapentin. Utox positive for cannabis. Denies ETOH abuse. Hx of SA by intentional OD requiring hospitalization 01/06/2021, dispo was to STR. Remote hx of IPLOC at APTU. 08/01/2022 Patient pleasant on approach. Reports GERD after meals and loose stool; will consider adding famotidine before meals and reviewing laxative/stool softeners to make sure there p.r.n. Plan: 1. Keep Prozac up to 30 mg p.o. daily to target depression. 2. The patient had a rash most likely due to Lamictal so we will try Depakote as a mood stabilizer. So far, we had not been able to get records from [facility] so we will start a therapeutic trial today. Increase Depakote up to 250 mg p.o. t.i.d.. 3. We will try to get a new family meeting with outpatient providers for July 28. 4. Flu contact precautions. 5. Blood work for Wednesday with Depakote level, basic metabolic panel, CBC and liver function test. Her Depakote level came back subtherapeutic. We will change Depakote up to 250 mg p.o. b.i.d. and 500 mg p.o. q.h.s. on July 28. 6. PT and occupational therapist assessment for discharge planning. 7. Imodium PRN diarrhea. 8. Disposition to subacute rehab Patient educated on: medical condition Informed Consent: understands Reason for contiued inpatient stay Substantial Risk for: med/psych decompensation Time Spent With Patient Time: Total time managing care of this patient today ____ minutes.
[2022-08-01 18:00] VITALS: BP 118/45; PULSE 78; RESP 18; TEMP 36.9; O2SAT 94
[2022-08-01] MEDS: Divalproex Sodium Sprinkles 125 MG CAP.DR.SPR 500 MG PO (20:42)
[2022-08-01] MEDS: Melatonin 3 MG TABLET 9 MG PO (20:43)
[2022-08-01] MEDS: LORazepam 1 MG TABLET PO (20:43)
[2022-08-01] MEDS: Loperamide HCl 2 MG CAPSULE 4 MG PO (20:46)
[2022-08-01] MEDS: traZODone HCL 50 MG TABLET PO (20:46)
[2022-08-02 06:00] VITALS: BP 117/54; PULSE 87; RESP 16; TEMP 35.9; O2SAT 93
[2022-08-02] MEDS: Omeprazole 40 MG CAPSULE.DR PO (06:16)
[2022-08-02] MEDS: Acetaminophen 325 MG TABLET 975 MG PO ×3 (09:46→20:52)
[2022-08-02] MEDS: Apixaban 2.5 MG TABLET PO ×2 (09:46→20:53)
[2022-08-02] MEDS: Multivitamin TABLET 1 TAB PO (09:46)
[2022-08-02] MEDS: Torsemide 20 MG TABLET PO ×2 (09:46→20:54)
[2022-08-02] MEDS: Divalproex Sodium Sprinkles 125 MG CAP.DR.SPR 250 MG PO ×2 (09:46→16:03)
[2022-08-02] MEDS: FLUoxetine HCl 10 MG CAPSULE 30 MG PO (09:46)
[2022-08-02] MEDS: Gabapentin 300 MG CAPSULE 900 MG PO ×3 (09:50→20:52)
[2022-08-02] MEDS: LORazepam 0.5 MG TABLET PO (09:55)
[2022-08-02] MEDS: Loperamide HCl 2 MG CAPSULE 4 MG PO ×2 (09:55→21:37)
[2022-08-02] MEDS: Famotidine 20 MG TABLET PO (16:03)
--- NOTE | 2022-08-02 17:10 | P.PNPSI_ITS ---
Subjective Subjective Date of Service: 08/02/22 Reason For Visit: SI, depression Interim History: Late entry note for patient seen 08/02/22 Patient remains pleasant. Patient made appropriate jokes saying today she took a step in the right direction then explained about getting her shoes on which she found helpful for transitioning. Says GERD is better and no loose stool today. Mental Status Exam Mental Status Exam Patient Appearance: Appropriate Patient Orientation: Person, Place and Situation Level of Consciousness: Awake and Appropriate Patient Behavior: Appropriate and Cooperative Mood Description: Calm and Appropriate Affect Description: Calm and Appropriate Ability to Follow Directions: Good Speech Pattern: Clear Hallucinations: None Delusions: Not Present Thought Process: Goal Oriented and Linear (somtimes mildly circumstantial) Thought Content: positive for Intact and positive for [place] Judgement: Fair Diagnostics Vital Signs (24Hr): Vital Signs - 24 hr 08/02/22 18:00 Temperature 97.8 F Pulse Rate 85 Respiratory Rate 16 Blood Pressure 109/57 L Pulse Oximetry 93 Oxygen Delivery Method Room Air BMI result Body Mass Index 52.0 Labs 07/28/22 07:38 07/28/22 07:38 Medications Medications Current Medications Acetaminophen (Acetaminophen 325 Mg Tablet) 975 mg PO TID [facility] Last Admin: 08/02/22 20:52 Dose: 975 mg Al Hydroxide/Mg Hydroxide (Magnesium Hydrox/Alum Hydrox 30 Ml Oral.Susp) 30 ml PO Q6H PRN PRN Reason: Heartburn/Nausea Apixaban (Apixaban 2.5 Mg Tablet) 2.5 mg PO BID [facility] Last Admin: 08/02/22 20:53 Dose: 2.5 mg Ascorbic Acid (Ascorbic Acid 500 Mg Tablet) 1,000 mg PO DAILY@1200 [facility] Last Admin: 08/02/22 13:41 Dose: Not Given Bacitracin (Bacitracin Oint 14 Gm Tube) 1 appl TOPICAL DAILY PRN; Protocol PRN Reason: left medial ankle when dressing change Divalproex Sodium (Divalproex Sodium Sprinkles 125 Mg ) 250 mg PO BID@0830,1330 [facility] Last Admin: 08/02/22 16:03 Dose: 250 mg Divalproex Sodium (Divalproex Sodium Sprinkles 125 Mg ) 500 mg PO BEDTIME [facility] Last Admin: 08/02/22 20:54 Dose: 500 mg Famotidine (Famotidine 20 Mg Tablet) 20 mg PO BIDAC [facility] Last Admin: 08/02/22 16:03 Dose: 20 mg Fluoxetine HCl (Fluoxetine Hcl 10 Mg Capsule) 30 mg PO DAILY [facility] Last Admin: 08/02/22 09:46 Dose: 30 mg Gabapentin (Gabapentin 300 Mg Capsule) 900 mg PO TID [facility] Last Admin: 08/02/22 20:52 Dose: 900 mg Guaifenesin/Dextromethorphan (Guaifenesin Dm 100/10/5 Ml 5 Ml Syrup) 5 ml PO Q4H PRN PRN Reason: Cough Last Admin: 08/02/22 21:38 Dose: 5 ml Hydrocortisone (Hydrocortisone 2.5 % Rectal Cr 30 Gm Tube) 1 appl ID BID [facility] Last Admin: 08/02/22 21:01 Dose: Not Given Hydroxyzine HCl (Hydroxyzine Hcl 25 Mg Tablet) 25 mg PO Q6H PRN PRN Reason: Anxiety Last Admin: 07/27/22 03:01 Dose: 25 mg Lidocaine (Lidocaine 5 % Ointment 35 Gm) 1 appl TOPICAL Q6H PRN; Protocol PRN Reason: moderate pain Last Admin: 07/22/22 05:00 Dose: 1 appl Loperamide HCl (Loperamide Hcl 2 Mg Capsule) 4 mg PO Q4H PRN PRN Reason: Diarrhea Last Admin: 08/02/22 21:37 Dose: 4 mg Lorazepam (Lorazepam 0.5 Mg Tablet) 0.5 mg PO BID PRN PRN Reason: Anxiety Last Admin: 08/02/22 09:55 Dose: 0.5 mg Lorazepam (Lorazepam 1 Mg Tablet) 1 mg PO BEDTIME [facility] Last Admin: 08/02/22 20:53 Dose: 1 mg Magnesium Hydroxide (Milk Of Magnesia 30 Ml Oral.Susp) 30 ml PO DAILY PRN PRN Reason: Constipation Last Admin: 08/01/22 09:52 Dose: 30 ml Melatonin (Melatonin 3 Mg Tablet) 9 mg PO BEDTIME [facility] Last Admin: 08/02/22 20:54 Dose: 9 mg Multi-Ingred Cream/Lotion/Oil/Oint (Mineral Oil/Petrolatum,White 106 Gm Tube) 1 appl TOPICAL BID [facility] Last Admin: 08/02/22 21:01 Dose: Not Given Multivitamins/Vitamin C (Multivitamin Tablet) 1 tab PO DAILY [facility] Last Admin: 08/02/22 09:46 Dose: 1 tab Pt Own (Biotene) 1 each BUCCAL Q6H PRN PRN Reason: Dry Mouth Last Admin: 07/18/22 21:21 Dose: 1 each Pt Own (Xylimelts) 1 each BUCCAL Q6H PRN PRN Reason: Dry Mouth Last Admin: 08/02/22 22:03 Dose: 1 each Nystatin (Nystatin Powder 15 Gm Bottle) 1 appl TOPICAL BID [facility] Last Admin: 08/02/22 21:01 Dose: Not Given Omeprazole (Omeprazole 40 Mg Capsule.Dr) 40 mg PO DAILY@0630 [facility] Last Admin: 08/03/22 05:46 Dose: 40 mg Pharmacy Consult (Consult Rx Perform Med Rec) 1 each MISCELLANE ONCE PRN PRN Reason: Consult order Polyethylene Glycol (Polyethylene Glycol 3350 17 Gm Powd.Pack) 17 gm PO DAILY PRN PRN Reason: Constipation Potassium Chloride (Potassium Chloride Er 10 Meq Capsule.Er) 10 meq PO DAILY [facility] Last Admin: 08/02/22 09:46 Dose: 10 meq Senna/Docusate Sodium (Sennosides/Docusate Sodium Tablet) 1 tab PO BEDTIME PRN PRN Reason: constipation Simethicone (Simethicone 80 Mg Tab.Chew) 80 mg PO QIDWMHS PRN PRN Reason: bloating Last Admin: 07/19/22 09:12 Dose: 80 mg Torsemide (Torsemide 20 Mg Tablet) 20 mg PO BID [facility]; Protocol Last Admin: 08/02/22 20:54 Dose: 20 mg Torsemide (Torsemide 20 Mg Tablet) 20 mg PO DAILY PRN; Protocol PRN Reason: swelling Last Admin: 07/27/22 22:11 Dose: 20 mg Trazodone HCl (Trazodone Hcl 50 Mg Tablet) 50 mg PO BEDTIME PRN PRN Reason: insomnia Last Admin: 08/01/22 20:46 Dose: 50 mg Vitamin D (Cholecalciferol (Vitamin D3) 25 Mcg Tablet) 50 mcg PO DAILY@1200 [facility] Last Admin: 08/02/22 13:41 Dose: Not Given Allergies Allergies Allergy/AdvReac Type Severity Reaction Status Date / Time adhesive tape [ADHESIVE TAPE] Allergy Unknown RASH Verified 07/07/22 22:06 penicillin V Allergy Unknown Unknown Verified 07/07/22 22:06 Penicillins [PCN] Allergy Unknown HIVES Verified 07/07/22 22:06 Sulfa (Sulfonamide Allergy Unknown HIVES Verified 07/07/22 22:06 Antibiotics) [SULFA(SULFONAMIDE ANTIBIOTICS)] sulfacetamide Allergy Unknown Unknown Verified 07/07/22 22:06 Latex, Natural Rubber Allergy Unknown Verified 07/10/22 18:00 adhesive tape Allergy Unknown Unknown Uncoded 07/07/22 22:06 Assessment & Plan Assessment & Plan (1) MDD (major depressive disorder), recurrent episode, moderate: Status: Acute Code(s): F33.1 - Major depressive disorder, recurrent, moderate (2) WINSTON (generalized anxiety disorder): Status: Acute Code(s): F41.1 - Generalized anxiety disorder (3) Sleep apnea with use of continuous positive airway pressure (CPAP): Status: Acute Code(s): G47.30 - Sleep apnea, unspecified (4) Borderline personality disorder: Status: Acute Code(s): F60.3 - Borderline personality disorder (5) Post traumatic stress disorder (PTSD): Status: Acute Code(s): F43.10 - Post-traumatic stress disorder, unspecified Plan Tasneem is a 76 y.o. female who carries a dx of MDD recurrent, WINSTON, PTSD, and BPD. Pt presented to [facility] ED on 07/07/22 after she disclosed to her daughter suicidal thoughts and passive plan to drink bleach. Pt has co-morbid medical issues of bilateral LE lymphedema, ERUM with CPAP, atrial fib, CHF, CKD, carpal tunnel, arthritis/ osteoarthritis in knees (?bone on bone? pain, hx of rotator cuff tear. Receives cortisol inj for pain relief and takes gabapentin. Utox positive for cannabis. Denies ETOH abuse. Hx of SA by intentional OD requiring hospitalization 01/06/2021, dispo was to [facility]. Remote hx of IPLOC at [facility]. 08/01/2022 Patient pleasant on approach. Reports GERD after meals and loose stool; will consider adding famotidine before meals and reviewing laxative/stool softeners to make sure there p.r.n. 08/02/22 Added famotidine before meals; stool softeners/laxatives all p.r.n. Otherwise no change in treatment plan Plan: 1. Keep Prozac up to 30 mg p.o. daily to target depression. 2. The patient had a rash most likely due to Lamictal so we will try Depakote as a mood stabilizer. So far, we had not been able to get records from [facility] so we will start a therapeutic trial today. Increase Depakote up to 250 mg p.o. t.i.d.. 3. We will try to get a new family meeting with outpatient providers for July 28. 4. Flu contact precautions. 5. Blood work for Wednesday with Depakote level, basic metabolic panel, CBC and liver function test. Her Depakote level came back subtherapeutic. We will change Depakote up to 250 mg p.o. b.i.d. and 500 mg p.o. q.h.s. on July 28. 6. PT and occupational therapist assessment for discharge planning. 7. Imodium PRN diarrhea. 8. Disposition to subacute rehab Reason for contiued inpatient stay Substantial Risk for: med/psych decompensation Time Spent With Patient Time: Total time managing care of this patient today ____ minutes.
[2022-08-02 18:00] VITALS: BP 109/57; PULSE 85; RESP 16; TEMP 36.6; O2SAT 93
[2022-08-02] MEDS: LORazepam 1 MG TABLET PO (20:53)
[2022-08-02] MEDS: Divalproex Sodium Sprinkles 125 MG CAP.DR.SPR 500 MG PO (20:54)
[2022-08-02] MEDS: Melatonin 3 MG TABLET 9 MG PO (20:54)
[2022-08-02] MEDS: guaiFENesin DM 100/10/5 ML 5 ML SYRUP PO (21:38)
[2022-08-03] MEDS: Omeprazole 40 MG CAPSULE.DR PO (05:46)
[2022-08-03 07:30] VITALS: BP 87/52; PULSE 68; RESP 17; TEMP 36.4; O2SAT 92
[2022-08-03] MEDS: Divalproex Sodium Sprinkles 125 MG CAP.DR.SPR 250 MG PO ×2 (10:21→12:57)
[2022-08-03] MEDS: Gabapentin 300 MG CAPSULE 900 MG PO ×3 (10:21→20:49)
[2022-08-03] MEDS: Acetaminophen 325 MG TABLET 975 MG PO ×3 (10:21→20:48)
[2022-08-03] MEDS: FLUoxetine HCl 10 MG CAPSULE 30 MG PO (10:21)
[2022-08-03] MEDS: Apixaban 2.5 MG TABLET PO ×2 (10:23→20:49)
[2022-08-03] MEDS: Famotidine 20 MG TABLET PO ×2 (10:23→15:39)
[2022-08-03] MEDS: Multivitamin TABLET 1 TAB PO (10:24)
[2022-08-03 11:45] VITALS: BP 120/70
[2022-08-03] MEDS: Torsemide 20 MG TABLET PO ×2 (11:52→20:49)
[2022-08-03] MEDS: Cholecalciferol (Vitamin D3) 25 MCG TABLET 50 MCG PO (12:01)
[2022-08-03] MEDS: Ascorbic Acid 500 MG TABLET 1000 MG PO (12:01)
--- NOTE | 2022-08-03 13:13 | HO.PSYCHPN ---
Subjective Subjective Date of Service: 08/03/22 Reason For Visit: SI, depression Subjective Notes: Conditional Voluntary Interim History: The nursing staff reported the patient has been splitting with staff, she complains to her daughter that the staff is not taking care of her or refusing to provide care or give her CPAP but she had been refusing it. The patient has shown this behavior since admission since she carries a diagnosis of borderline personality disorder. On interview the patient denies new symptoms, she is waiting for placement at subacute rehab since she had a deconditionated while she was in the unit. [facility] would be able to provide the serivice at home. D/C for Wednesday. Mental Status Exam Mental Status Exam Patient Appearance: Well Grooomed and Appropriate Patient Orientation: Person Level of Consciousness: Awake and Appropriate Patient Behavior: Guarded and Passive Mood Description: Withdrawn Affect Description: Constricted Patient Cognition Impaired: Yes Ability to Follow Directions: Good Speech Pattern: Clear Hallucinations: None Delusions: Not Present Thought Process: Distracted and Linear Thought Content: positive for [place] Judgement: Fair Diagnostics Vital Signs (24Hr): Vital Signs - 24 hr 08/02/22 18:00 Temperature 97.8 F Pulse Rate 85 Respiratory Rate 16 Blood Pressure 109/57 L Pulse Oximetry 93 Oxygen Delivery Method Room Air BMI result Body Mass Index 52.0 Labs 07/28/22 07:38 07/28/22 07:38 Medications Medications Current Medications Acetaminophen (Acetaminophen 325 Mg Tablet) 975 mg PO TID [facility] Last Admin: 08/03/22 10:21 Dose: 975 mg Al Hydroxide/Mg Hydroxide (Magnesium Hydrox/Alum Hydrox 30 Ml Oral.Susp) 30 ml PO Q6H PRN PRN Reason: Heartburn/Nausea Apixaban (Apixaban 2.5 Mg Tablet) 2.5 mg PO BID [facility] [place] Last Admin: 08/03/22 10:23 Dose: 2.5 mg Ascorbic Acid (Ascorbic Acid 500 Mg Tablet) 1,000 mg PO DAILY@1200 [facility] [place] Last Admin: 08/03/22 12:01 Dose: 1,000 mg Bacitracin (Bacitracin Oint 14 Gm Tube) 1 appl TOPICAL DAILY PRN; Protocol PRN Reason: left medial ankle when dressing change Divalproex Sodium (Divalproex Sodium Sprinkles 125 Mg ) 250 mg PO BID@0830,1330 [facility] [place] Last Admin: 08/03/22 12:57 Dose: 250 mg Divalproex Sodium (Divalproex Sodium Sprinkles 125 Mg ) 500 mg PO BEDTIME [facility] [place] Last Admin: 08/02/22 20:54 Dose: 500 mg Famotidine (Famotidine 20 Mg Tablet) 20 mg PO BIDAC [facility] [place] Last Admin: 08/03/22 10:23 Dose: 20 mg Fluoxetine HCl (Fluoxetine Hcl 10 Mg Capsule) 30 mg PO DAILY [facility] [place] Last Admin: 08/03/22 10:21 Dose: 30 mg Gabapentin (Gabapentin 300 Mg Capsule) 900 mg PO TID [facility] [place] Last Admin: 08/03/22 10:21 Dose: 900 mg Guaifenesin/Dextromethorphan (Guaifenesin Dm 100/10/5 Ml 5 Ml Syrup) 5 ml PO Q4H PRN PRN Reason: Cough Last Admin: 08/02/22 21:38 Dose: 5 ml Hydrocortisone (Hydrocortisone 2.5 % Rectal Cr 30 Gm Tube) 1 appl [place] BID [facility] [place] Last Admin: 08/03/22 10:28 Dose: Not Given Hydroxyzine HCl (Hydroxyzine Hcl 25 Mg Tablet) 25 mg PO Q6H PRN PRN Reason: Anxiety Last Admin: 07/27/22 03:01 Dose: 25 mg Lidocaine (Lidocaine 5 % Ointment 35 Gm) 1 appl TOPICAL Q6H PRN; Protocol PRN Reason: moderate pain Last Admin: 07/22/22 05:00 Dose: 1 appl Loperamide HCl (Loperamide Hcl 2 Mg Capsule) 4 mg PO Q4H PRN PRN Reason: Diarrhea Last Admin: 08/02/22 21:37 Dose: 4 mg Lorazepam (Lorazepam 0.5 Mg Tablet) 0.5 mg PO BID PRN PRN Reason: Anxiety Last Admin: 08/02/22 09:55 Dose: 0.5 mg Lorazepam (Lorazepam 1 Mg Tablet) 1 mg PO BEDTIME [facility] [place] Last Admin: 08/02/22 20:53 Dose: 1 mg Magnesium Hydroxide (Milk Of Magnesia 30 Ml Oral.Susp) 30 ml PO DAILY PRN PRN Reason: Constipation Last Admin: 08/01/22 09:52 Dose: 30 ml Melatonin (Melatonin 3 Mg Tablet) 9 mg PO BEDTIME [facility] [place] Last Admin: 08/02/22 20:54 Dose: 9 mg Multi-Ingred Cream/Lotion/Oil/Oint (Mineral Oil/Petrolatum,White 106 Gm Tube) 1 appl TOPICAL BID [facility] [place] Last Admin: 08/03/22 10:28 Dose: Not Given Multivitamins/Vitamin C (Multivitamin Tablet) 1 tab PO DAILY [facility] [place] Last Admin: 08/03/22 10:24 Dose: 1 tab Pt Own (Biotene) 1 each BUCCAL Q6H PRN PRN Reason: Dry Mouth Last Admin: 07/18/22 21:21 Dose: 1 each Pt Own (Xylimelts) 1 each BUCCAL Q6H PRN PRN Reason: Dry Mouth Last Admin: 08/02/22 22:03 Dose: 1 each Nystatin (Nystatin Powder 15 Gm Bottle) 1 appl TOPICAL BID [facility] [place] Last Admin: 08/02/22 21:01 Dose: Not Given Omeprazole (Omeprazole 40 Mg Capsule.Dr) 40 mg PO DAILY@0630 [facility] [place] Last Admin: 08/03/22 05:46 Dose: 40 mg Pharmacy Consult (Consult Rx Perform Med Rec) 1 each MISCELLANE ONCE PRN PRN Reason: Consult order Polyethylene Glycol (Polyethylene Glycol 3350 17 Gm Powd.Pack) 17 gm PO DAILY PRN PRN Reason: Constipation Potassium Chloride (Potassium Chloride Er 10 Meq Capsule.Er) 10 meq PO DAILY [facility] [place] Last Admin: 08/03/22 10:21 Dose: 10 meq Senna/Docusate Sodium (Sennosides/Docusate Sodium Tablet) 1 tab PO BEDTIME PRN PRN Reason: constipation Simethicone (Simethicone 80 Mg Tab.Chew) 80 mg PO QIDWMHS PRN PRN Reason: bloating Last Admin: 07/19/22 09:12 Dose: 80 mg Torsemide (Torsemide 20 Mg Tablet) 20 mg PO BID [facility]; Protocol Last Admin: 08/03/22 11:52 Dose: 20 mg Torsemide (Torsemide 20 Mg Tablet) 20 mg PO DAILY PRN; Protocol PRN Reason: swelling Last Admin: 07/27/22 22:11 Dose: 20 mg Trazodone HCl (Trazodone Hcl 50 Mg Tablet) 50 mg PO BEDTIME PRN PRN Reason: insomnia Last Admin: 08/01/22 20:46 Dose: 50 mg Vitamin D (Cholecalciferol (Vitamin D3) 25 Mcg Tablet) 50 mcg PO DAILY@1200 [facility] [place] Last Admin: 08/03/22 12:01 Dose: 50 mcg Allergies Allergies Allergy/AdvReac Type Severity Reaction Status Date / Time adhesive tape [ADHESIVE TAPE] Allergy Unknown RASH Verified 07/07/22 22:06 penicillin V Allergy Unknown Unknown Verified 07/07/22 22:06 Penicillins [PCN] Allergy Unknown HIVES Verified 07/07/22 22:06 Sulfa (Sulfonamide Allergy Unknown HIVES Verified 07/07/22 22:06 Antibiotics) [SULFA(SULFONAMIDE ANTIBIOTICS)] sulfacetamide Allergy Unknown Unknown Verified 07/07/22 22:06 Latex, Natural Rubber Allergy Unknown Verified 07/10/22 18:00 adhesive tape Allergy Unknown Unknown Uncoded 07/07/22 22:06 Assessment & Plan Assessment & Plan (1) MDD (major depressive disorder), recurrent episode, moderate: Status: Acute Code(s): F33.1 - Major depressive disorder, recurrent, moderate (2) WINSTON (generalized anxiety disorder): Status: Acute Code(s): F41.1 - Generalized anxiety disorder (3) Sleep apnea with use of continuous positive airway pressure (CPAP): Status: Acute Code(s): G47.30 - Sleep apnea, unspecified (4) Borderline personality disorder: Status: Acute Code(s): F60.3 - Borderline personality disorder (5) Post traumatic stress disorder (PTSD): Status: Acute Code(s): F43.10 - Post-traumatic stress disorder, unspecified Plan Tasneem is a 76 y.o. female who carries a dx of MDD recurrent, WINSTON, PTSD, and BPD. Pt presented to [facility] ED on 07/07/22 after she disclosed to her daughter suicidal thoughts and passive plan to drink bleach. Pt has co-morbid medical issues of bilateral LE lymphedema, ERUM with CPAP, atrial fib, CHF, CKD, carpal tunnel, arthritis/ osteoarthritis in knees (?bone on bone? pain, hx of rotator cuff tear. Receives cortisol inj for pain relief and takes gabapentin. Utox positive for cannabis. Denies ETOH abuse. Hx of SA by intentional OD requiring hospitalization 01/06/2021, dispo was to [facility]. Remote hx of IPLOC at [facility]. Plan: 1. Keep Prozac up to 30 mg p.o. daily to target depression. 2. The patient had a rash most likely due to Lamictal so we will try Depakote as a mood stabilizer. So far, we had not been able to get records from [facility] so we will start a therapeutic trial today. Increase Depakote up to 250 mg p.o. t.i.d.. 3. We will try to get a new family meeting with outpatient providers for July 28. 4. Flu contact precautions. 5. Blood work for Wednesday with Depakote level, basic metabolic panel, CBC and liver function test. Her Depakote level came back subtherapeutic. We will change Depakote up to 250 mg p.o. b.i.d. and 500 mg p.o. q.h.s. on July 28. 6. PT and occupational therapist assessment for discharge planning. 7. Imodium PRN diarrhea. 8. Disposition to subacute rehab or home [facility]. Reason for contiued inpatient stay Substantial Risk for: inability to function, rapid decompensation and med/psych decompensation Time Spent With Patient Time: Total time managing care of this patient today __20__ minutes.
[2022-08-03 18:00] VITALS: BP 110/55; PULSE 77; RESP 16; TEMP 35.8; O2SAT 93
[2022-08-03] MEDS: Melatonin 3 MG TABLET 9 MG PO (20:47)
[2022-08-03] MEDS: Divalproex Sodium Sprinkles 125 MG CAP.DR.SPR 500 MG PO (20:48)
[2022-08-03] MEDS: LORazepam 1 MG TABLET PO (20:49)
[2022-08-03] MEDS: guaiFENesin DM 100/10/5 ML 5 ML SYRUP PO (20:50)
[2022-08-04] MEDS: guaiFENesin DM 100/10/5 ML 5 ML SYRUP PO ×2 (03:59→20:20)
[2022-08-04] MEDS: Omeprazole 40 MG CAPSULE.DR PO (05:47)
[2022-08-04 07:30] VITALS: BP 138/54; PULSE 85; RESP 16; TEMP 36.2; O2SAT 93
[2022-08-04] MEDS: Acetaminophen 325 MG TABLET 975 MG PO ×3 (09:36→20:15)
[2022-08-04] MEDS: Apixaban 2.5 MG TABLET PO ×2 (09:37→20:15)
[2022-08-04] MEDS: Torsemide 20 MG TABLET PO ×2 (09:37→20:18)
[2022-08-04] MEDS: FLUoxetine HCl 10 MG CAPSULE 30 MG PO (09:37)
[2022-08-04] MEDS: Divalproex Sodium Sprinkles 125 MG CAP.DR.SPR 250 MG PO ×2 (09:37→12:52)
[2022-08-04] MEDS: Gabapentin 300 MG CAPSULE 900 MG PO ×3 (09:37→20:16)
[2022-08-04] MEDS: Famotidine 20 MG TABLET PO ×2 (09:38→15:55)
[2022-08-04] MEDS: Multivitamin TABLET 1 TAB PO (09:38)
[2022-08-04] MEDS: LORazepam 0.5 MG TABLET PO (09:55)
[2022-08-04] MEDS: Nystatin Powder 15 GM BOTTLE 1 APPL TOPICAL (10:39)
[2022-08-04] MEDS: Ascorbic Acid 500 MG TABLET 1000 MG PO (12:52)
[2022-08-04] MEDS: Cholecalciferol (Vitamin D3) 25 MCG TABLET 50 MCG PO (12:52)
[2022-08-04 13:55] VITALS: BP 138/54; PULSE 85; O2SAT 93
--- NOTE | 2022-08-04 15:03 | P.PNPSI_ITS ---
Subjective Subjective Date of Service: 08/04/22 Reason For Visit: SI, depression Subjective Notes: Conditional Voluntary Interim History: Nursing staff reported the patient had been compliant with treatment, no side effects. The patient had been on her room most of the time and now she complains of productive cough. I ordered a chest x-ray without any consolidation, it looks like she has some atelectasis. The patient had been anxious since she is going to be discharged tomorrow and she is scared of being alone. Mental Status Exam Mental Status Exam Patient Appearance: Well Grooomed Patient Orientation: Person and Situation Level of Consciousness: Awake and Appropriate Patient Behavior: Appropriate Mood Description: Calm Affect Description: Constricted Patient Cognition Impaired: Yes Ability to Follow Directions: Good Speech Pattern: Clear Hallucinations: None Delusions: Not Present Thought Process: Distracted and Linear Thought Content: positive for Bement and positive for Circumstantial Judgement: Fair Diagnostics Vital Signs (24Hr): Vital Signs - 24 hr 08/03/22 18:00 08/04/22 07:30 08/04/22 13:55 Temperature 96.4 F L 97.1 F Pulse Rate 77 85 85 Respiratory Rate 16 16 Blood Pressure 110/55 L 138/54 L 138/54 L Pulse Oximetry 93 93 93 Oxygen Delivery Method Room Air Room Air BMI result Body Mass Index 52.0 Labs 07/28/22 07:38 07/28/22 07:38 Medications Medications Current Medications Acetaminophen (Acetaminophen 325 Mg Tablet) 975 mg PO TID [facility] Last Admin: 08/04/22 09:36 Dose: 975 mg Al Hydroxide/Mg Hydroxide (Magnesium Hydrox/Alum Hydrox 30 Ml Oral.Susp) 30 ml PO Q6H PRN PRN Reason: Heartburn/Nausea Apixaban (Apixaban 2.5 Mg Tablet) 2.5 mg PO BID [facility] Last Admin: 08/04/22 09:37 Dose: 2.5 mg Ascorbic Acid (Ascorbic Acid 500 Mg Tablet) 1,000 mg PO DAILY@1200 [facility] Last Admin: 08/04/22 12:52 Dose: 1,000 mg Bacitracin (Bacitracin Oint 14 Gm Tube) 1 appl TOPICAL DAILY PRN; Protocol PRN Reason: left medial ankle when dressing change Divalproex Sodium (Divalproex Sodium Sprinkles 125 Mg ) 250 mg PO BID@0830,1330 [facility] Last Admin: 08/04/22 12:52 Dose: 250 mg Divalproex Sodium (Divalproex Sodium Sprinkles 125 Mg ) 500 mg PO BEDTIME [facility] Last Admin: 08/03/22 20:48 Dose: 500 mg Famotidine (Famotidine 20 Mg Tablet) 20 mg PO BIDAC [facility] Last Admin: 08/04/22 09:38 Dose: 20 mg Fluoxetine HCl (Fluoxetine Hcl 10 Mg Capsule) 30 mg PO DAILY [facility] Last Admin: 08/04/22 09:37 Dose: 30 mg Gabapentin (Gabapentin 300 Mg Capsule) 900 mg PO TID [facility] Last Admin: 08/04/22 09:37 Dose: 900 mg Guaifenesin/Dextromethorphan (Guaifenesin Dm 100/10/5 Ml 5 Ml Syrup) 5 ml PO Q4H PRN PRN Reason: Cough Last Admin: 08/04/22 03:59 Dose: 5 ml Hydrocortisone (Hydrocortisone 2.5 % Rectal Cr 30 Gm Tube) 1 appl HI BID [facility] Last Admin: 08/04/22 10:39 Dose: Not Given Hydroxyzine HCl (Hydroxyzine Hcl 25 Mg Tablet) 25 mg PO Q6H PRN PRN Reason: Anxiety Last Admin: 07/27/22 03:01 Dose: 25 mg Lidocaine (Lidocaine 5 % Ointment 35 Gm) 1 appl TOPICAL Q6H PRN; Protocol PRN Reason: moderate pain Last Admin: 07/22/22 05:00 Dose: 1 appl Loperamide HCl (Loperamide Hcl 2 Mg Capsule) 4 mg PO Q4H PRN PRN Reason: Diarrhea Last Admin: 08/02/22 21:37 Dose: 4 mg Lorazepam (Lorazepam 0.5 Mg Tablet) 0.5 mg PO BID PRN PRN Reason: Anxiety Last Admin: 08/04/22 09:55 Dose: 0.5 mg Lorazepam (Lorazepam 1 Mg Tablet) 1 mg PO BEDTIME [facility] Last Admin: 08/03/22 20:49 Dose: 1 mg Magnesium Hydroxide (Milk Of Magnesia 30 Ml Oral.Susp) 30 ml PO DAILY PRN PRN Reason: Constipation Last Admin: 08/01/22 09:52 Dose: 30 ml Melatonin (Melatonin 3 Mg Tablet) 9 mg PO BEDTIME [facility] Last Admin: 08/03/22 20:47 Dose: 9 mg Multi-Ingred Cream/Lotion/Oil/Oint (Mineral Oil/Petrolatum,White 106 Gm Tube) 1 appl TOPICAL BID [facility] Last Admin: 08/04/22 10:39 Dose: Not Given Multivitamins/Vitamin C (Multivitamin Tablet) 1 tab PO DAILY [facility] Last Admin: 08/04/22 09:38 Dose: 1 tab Pt Own (Biotene) 1 each BUCCAL Q6H PRN PRN Reason: Dry Mouth Last Admin: 07/18/22 21:21 Dose: 1 each Pt Own (Xylimelts) 1 each BUCCAL Q6H PRN PRN Reason: Dry Mouth Last Admin: 08/03/22 20:51 Dose: 1 each Nystatin (Nystatin Powder 15 Gm Bottle) 1 appl TOPICAL BID [facility] Last Admin: 08/04/22 10:39 Dose: 1 appl Omeprazole (Omeprazole 40 Mg Capsule.Dr) 40 mg PO DAILY@0630 [facility] Last Admin: 08/04/22 05:47 Dose: 40 mg Pharmacy Consult (Consult Rx Perform Med Rec) 1 each MISCELLANE ONCE PRN PRN Reason: Consult order Polyethylene Glycol (Polyethylene Glycol 3350 17 Gm Powd.Pack) 17 gm PO DAILY PRN PRN Reason: Constipation Potassium Chloride (Potassium Chloride Er 10 Meq Capsule.Er) 10 meq PO DAILY [facility] Last Admin: 08/04/22 09:36 Dose: 10 meq Senna/Docusate Sodium (Sennosides/Docusate Sodium Tablet) 1 tab PO BEDTIME PRN PRN Reason: constipation Simethicone (Simethicone 80 Mg Tab.Chew) 80 mg PO QIDWMHS PRN PRN Reason: bloating Last Admin: 07/19/22 09:12 Dose: 80 mg Torsemide (Torsemide 20 Mg Tablet) 20 mg PO BID [facility]; Protocol Last Admin: 08/04/22 09:37 Dose: 20 mg Torsemide (Torsemide 20 Mg Tablet) 20 mg PO DAILY PRN; Protocol PRN Reason: swelling Last Admin: 07/27/22 22:11 Dose: 20 mg Trazodone HCl (Trazodone Hcl 50 Mg Tablet) 50 mg PO BEDTIME PRN PRN Reason: insomnia Last Admin: 08/01/22 20:46 Dose: 50 mg Vitamin D (Cholecalciferol (Vitamin D3) 25 Mcg Tablet) 50 mcg PO DAILY@1200 [facility] Last Admin: 08/04/22 12:52 Dose: 50 mcg Allergies Allergies Allergy/AdvReac Type Severity Reaction Status Date / Time adhesive tape [ADHESIVE TAPE] Allergy Unknown RASH Verified 07/07/22 22:06 penicillin V Allergy Unknown Unknown Verified 07/07/22 22:06 Penicillins [PCN] Allergy Unknown HIVES Verified 07/07/22 22:06 Sulfa (Sulfonamide Allergy Unknown HIVES Verified 07/07/22 22:06 Antibiotics) [SULFA(SULFONAMIDE ANTIBIOTICS)] sulfacetamide Allergy Unknown Unknown Verified 07/07/22 22:06 Latex, Natural Rubber Allergy Unknown Verified 07/10/22 18:00 adhesive tape Allergy Unknown Unknown Uncoded 07/07/22 22:06 Assessment & Plan Assessment & Plan (1) MDD (major depressive disorder), recurrent episode, moderate: Status: Acute Code(s): F33.1 - Major depressive disorder, recurrent, moderate (2) WINSTON (generalized anxiety disorder): Status: Acute Code(s): F41.1 - Generalized anxiety disorder (3) Sleep apnea with use of continuous positive airway pressure (CPAP): Status: Acute Code(s): G47.30 - Sleep apnea, unspecified (4) Borderline personality disorder: Status: Acute Code(s): F60.3 - Borderline personality disorder (5) Post traumatic stress disorder (PTSD): Status: Acute Code(s): F43.10 - Post-traumatic stress disorder, unspecified Plan Tasneem is a 76 y.o. female who carries a dx of MDD recurrent, WINSTON, PTSD, and BPD. Pt presented to [facility] ED on 07/07/22 after she disclosed to her daughter suicidal thoughts and passive plan to drink bleach. Pt has co-morbid medical issues of bilateral LE lymphedema, ERUM with CPAP, atrial fib, CHF, CKD, carpal tunnel, arthritis/ osteoarthritis in knees (?bone on bone? pain, hx of rotator cuff tear. Receives cortisol inj for pain relief and takes gabapentin. Utox positive for cannabis. Denies ETOH abuse. Hx of SA by intentional OD requiring hospitalization 01/06/2021, dispo was to STR. Remote hx of IPLOC at [facility]TU. Plan: 1. Keep Prozac up to 30 mg p.o. daily to target depression. 2. The patient had a rash most likely due to Lamictal so we will try Depakote as a mood stabilizer. So far, we had not been able to get records from [facility] so we will start a therapeutic trial today. Increase Depakote up to 250 mg p.o. t.i.d.. 3. We will try to get a new family meeting with outpatient providers for July 28. 4. Flu contact precautions. 5. Blood work for Wednesday with Depakote level, basic metabolic panel, CBC and liver function test. Her Depakote level came back subtherapeutic. We will change Depakote up to 250 mg p.o. b.i.d. and 500 mg p.o. q.h.s. on July 28. 6. PT and occupational therapist assessment for discharge planning. 7. Imodium PRN diarrhea. 8. Disposition to subacute rehab or home PACE PT.. 9. Chest x-ray today within normal limits no evidence of consolidation. Reason for contiued inpatient stay Substantial Risk for: inability to function, rapid decompensation and med/psych decompensation Time Spent With Patient Time: Total time managing care of this patient today __20__ minutes.
[2022-08-04 18:00] VITALS: BP 113/56; PULSE 93; TEMP 36.6; O2SAT 93
[2022-08-04] MEDS: Divalproex Sodium Sprinkles 125 MG CAP.DR.SPR 500 MG PO (20:16)
[2022-08-04] MEDS: Melatonin 3 MG TABLET 9 MG PO (20:17)
[2022-08-04] MEDS: LORazepam 1 MG TABLET PO (20:17)
[2022-08-04] MEDS: traZODone HCL 50 MG TABLET PO (20:19)
[2022-08-05] MEDS: traZODone HCL 50 MG TABLET PO (02:05)
[2022-08-05] MEDS: Omeprazole 40 MG CAPSULE.DR PO (06:26)
[2022-08-05 08:08] VITALS: BP 106/48; PULSE 77; RESP 18; TEMP 36.8; O2SAT 94
[2022-08-05] MEDS: Famotidine 20 MG TABLET PO (08:13)
[2022-08-05] MEDS: Gabapentin 300 MG CAPSULE 900 MG PO (08:13)
[2022-08-05] MEDS: Acetaminophen 325 MG TABLET 975 MG PO (08:14)
[2022-08-05] MEDS: Divalproex Sodium Sprinkles 125 MG CAP.DR.SPR 250 MG PO (08:16)
[2022-08-05] MEDS: FLUoxetine HCl 10 MG CAPSULE 30 MG PO (08:17)
[2022-08-05] MEDS: Apixaban 2.5 MG TABLET PO (08:17)
[2022-08-05] MEDS: Multivitamin TABLET 1 TAB PO (08:18)
[2022-08-05] MEDS: Torsemide 20 MG TABLET PO (08:21)
[2022-08-05 08:32] VITALS: BP 124/55
--- NOTE | 2022-08-05 10:48 | PM.PSYDC ---
DS: Providers Provider Date of Service: 08/05/22 Date of admission: 07/09/22 16:10 Date of discharge: 08/05/22 Primary care physician: Nonstaff Physician Attending physician on discharge: Sanjay German DS: Diagnosis Discharge Diagnosis (1) MDD (major depressive disorder), recurrent episode, moderate: Status: Acute (2) WINSTON (generalized anxiety disorder): Status: Acute (3) Sleep apnea with use of continuous positive airway pressure (CPAP): Status: Acute (4) Borderline personality disorder: Status: Acute (5) Post traumatic stress disorder (PTSD): Status: Acute DS: Medications Discharge Medications Home Medications: Home Medications Medication Instructions Recorded Confirmed acetaminophen 500 mg tablet 1,000 mg PO TID 07/08/22 07/08/22 apixaban 2.5 mg tablet 2.5 mg PO BID 07/08/22 07/08/22 ascorbic acid (vitamin C) 500 mg 1,000 mg PO DAILY@1200 07/08/22 07/08/22 tablet cholecalciferol (vitamin D3) 25 50 mcg PO DAILY@1200 07/08/22 07/08/22 mcg (1,000 unit) tablet docusate sodium 100 mg capsule 100 mg PO BID 07/08/22 07/08/22 fluoxetine 10 mg tablet 10 mg PO BEDTIME 07/08/22 07/08/22 fluoxetine 10 mg tablet 15 mg PO DAILY 07/08/22 07/08/22 gabapentin 300 mg capsule 900 mg PO TID 07/08/22 07/08/22 hydrocortisone 2.5 % topical cream 1 appl ID BID 07/08/22 07/08/22 with perineal applicator lidocaine 5 % topical ointment 1 appl topical Q6H PRN moderate 07/08/22 07/08/22 pain lorazepam 0.5 mg tablet 0.5 mg PO TID PRN Anxiety 07/08/22 07/08/22 lorazepam 1 mg tablet 1 mg PO BEDTIME 07/08/22 07/08/22 melatonin 10 mg tablet 10 mg PO BEDTIME 07/08/22 07/08/22 multivitamin 1 tab PO DAILY 07/08/22 07/08/22 naltrexone 4.5 mg PO DAILY 07/08/22 07/08/22 olanzapine 2.5 mg tablet 2.5 mg PO BEDTIME 07/08/22 07/08/22 pantoprazole 40 mg tablet,delayed 40 mg PO DAILY 07/08/22 07/08/22 release sennosides 8.6 mg tablet (senna) 17.2 mg PO BEDTIME 07/08/22 07/08/22 torsemide 20 mg tablet 20 mg PO BID 07/08/22 07/08/22 Mental Status Exam Mental Status Exam Patient Appearance: Well Grooomed Patient Orientation: Person, Place, Time and Situation Level of Consciousness: Awake and Appropriate Patient Behavior: Cooperative Mood Description: Calm Affect Description: Constricted Patient Cognition Impaired: No Ability to Follow Directions: Good Speech Pattern: Clear Hallucinations: None Delusions: Not Present Thought Process: Linear Thought Content: positive for Goal Oriented Judgement: Fair Data Data Completed and Pending Completed studies during hospitalization [Text1]: 07/08/22 03:16 Urine clean catch - Urine delarosa top Urine Culture - Final Imaging Diagnostic Imaging Impressions Chest X-Ray 08/04/22 11:13 IMPRESSION: No acute intrathoracic disease. DS: Summary Hospital Course Hospital Course: The patient was admitted into the unit for exacerbation of depressive symptoms with suicidal ideation. Please see the HPI of the admission note for further details. On admission, we review her list of medications and she complained mostly of mood lability. We discussed risks, benefits, side-effects and alternatives and she agreed to add Depakote as a mood stabilizer. We started slow titration of Depakote with no side effects and a therapeutic level on Depakote 1000 mg a day. While she was in the unit, the patient showed classical symptoms of borderline personality disorder such as splitting and unstable relations. While she was in the unit, she got a flu and needed to be on contact isolation. She stayed on her bed most of the time and she quickly day deconditionated, needing staff help to get out of the bed. We consulted to physical therapy and occupational therapy and initially we will trying to transfer her to subacute rehab facility but her outpatient program, agreed to provide this service at home. Her suicidality resolved, her mood was chronically dysphoric and since there were no safety concerns discharge planning was discussed. Time spent discussing smoking cessation with patient: 3 to 10 minutes Status at Discharge Cognitive/behavioral status at discharge: At baseline Functional status at discharge: uses cane/walker Overall status at discharge: patient is back to baseline Time Spent with Patient Time attestation: Total time managing care of this patient today ____ minutes. Time spent: Less than 30 minutes Discharge Plan Discharge Anticipated Discharge Date/Time: 08/05/22 11:03 Patient Disposition: Home Health Service Discharge Diagnosis: Major depressive disorder recurrent episode without psychosis. Borderline personality disorder Referrals: Jaycob Reynoso [facility] [Other] - 08/05/22 3:00 pm (Your next appointment with Jaycob is scheduled for 08/05/22 at 1:15pm. This follow up appointment will be scheduled for phone and then in person option is available following for in home therapy.) Shannan Tristan NP [facility] [Other] - 08/19/22 10:30 am (Your next appointment with is scheduled for 08/19/22 at 10:30am. ) [facility] [Other] - 07/30/22 ([facility] to provide, SW, PT/OT daily and nursing visits in addition to primary care. ) [facility] [Other] - 08/05/22 12:30 pm Discharge Medications: New potassium chloride 10 mEq Capsule, Extended Release 10 meq PO DAILY Qty: 30 0RF torsemide 20 mg Tablet 20 mg PO DAILY PRN (Reason: swelling) Qty: 30 0RF Protocol: Hold for SBP< HOLD for SBP < : 90 trazodone 50 mg Tablet 50 mg PO BEDTIME PRN (Reason: insomnia) Qty: 30 0RF bacitracin 500 unit/gram Ointment 1 appl topical DAILY PRN (Reason: left medial ankle when dressing change) Qty: 14 0RF Protocol: Apply to: Apply to: left medial ankle dextromethorphan-guaifenesin 10-100 mg/5 mL Syrup 5 ml PO Q4H PRN (Reason: Cough) Qty: 237 0RF lorazepam 0.5 mg Tablet 0.5 mg PO BID PRN (Reason: Anxiety) Qty: 60 0RF fluoxetine 10 mg Capsule 30 mg PO DAILY Qty: 90 0RF nystatin 100,000 unit/gram Powder 1 appl topical BID Qty: 15 0RF lorazepam 1 mg Tablet 1 mg PO BEDTIME Qty: 30 0RF divalproex 125 mg Capsule, Delayed Rel Sprinkle 250 mg PO BID@0830,1330 Qty: 90 0RF divalproex 125 mg Capsule, Delayed Rel Sprinkle 500 mg PO BEDTIME Qty: 90 0RF Dermacerin Cream 1 appl topical BID Qty: 454 0RF Continued gabapentin 300 mg Capsule 900 mg PO TID acetaminophen 500 mg Tablet 1,000 mg PO TID multivitamin Tablet 1 tab PO DAILY sennosides [senna] 8.6 mg Tablet 17.2 mg PO BEDTIME torsemide 20 mg Tablet 20 mg PO BID fluoxetine 10 mg Tablet 10 mg PO BEDTIME hydrocortisone 2.5 % Cream With Perineal Applicator 1 appl ID BID ascorbic acid (vitamin C) 500 mg Tablet 1,000 mg PO DAILY@1200 pantoprazole 40 mg Tablet,Delayed Release (Dr/Ec) 40 mg PO DAILY docusate sodium 100 mg Capsule 100 mg PO BID cholecalciferol (vitamin D3) 25 mcg (1,000 unit) Tablet 50 mcg PO DAILY@1200 lidocaine 5 % ointment 1 appl topical Q6H PRN (Reason: moderate pain) melatonin 10 mg Tablet 10 mg PO BEDTIME apixaban 2.5 mg Tablet 2.5 mg PO BID naltrexone 4.5 mg PO DAILY Discontinued fluoxetine 10 mg Tablet 15 mg PO DAILY olanzapine 2.5 mg Tablet 2.5 mg PO BEDTIME lorazepam 0.5 mg Tablet 0.5 mg PO TID PRN (Reason: Anxiety) lorazepam 1 mg Tablet 1 mg PO BEDTIME Discharge Orders: Discharge Order (Routine); Ordered 08/05/22 Ordered By: Sanjay German Diet: Advance to usual diet Activity on Discharge: As tolerated Stand Alone Forms: Patient Portal Discharge page Care Plan Goals: Care plan goals achieved in this admission Health Concerns: Continue with regular outpatient provider Plan of Treatment: Continue medication management Assessment: Elderly female with a long history of borderline personality disorder, major depressive disorder and other comorbidities admitted for suicidality. On this admission we added Depakote with for improvement of her symptoms, this moment ready to be discharged in the community since there were no safety concerns.
[2022-08-05] MEDS: guaiFENesin DM 100/10/5 ML 5 ML SYRUP PO (11:13)
[2022-08-05] MEDS: LORazepam 0.5 MG TABLET PO (11:13)
== END 2022-08-05 12:30 | disposition home health service (06) | DRG 885 ==
LOC: HO.ED 07-08 03:57 → HO.PGERI 07-09 16:20
PROVIDERS: Internal Medicine; Registered Nurse; Admitting Provider Psychiatry & Neurology Psychiatry; Emergency Provider Emergency Medicine Emergency Medical Services; Visit Provider Psychiatry & Neurology Psychiatry
DX: F33.1 Major depressive disorder, recurrent, moderate (principal); R45.851 Suicidal ideations; Z68.43 Body mass index [BMI] 50.0-59.9, adult; F41.1 Generalized anxiety disorder; G47.30 Sleep apnea, unspecified; F60.3 Borderline personality disorder; F43.10 Post-traumatic stress disorder, unspecified; E66.9 Obesity, unspecified; Z20.822 Contact with and (suspected) exposure to COVID-19; Z88.0 Allergy status to penicillin; Z88.2 Allergy status to sulfonamides; Z91.040 Latex allergy status; Z79.01 Long term (current) use of anticoagulants; Z79.899 Other long term (current) drug therapy
CPT/HCPCS: 0241U; 36415; 71045; 80048; 80053; 80061; 80076; 80164; 80307; 81001; 82077; 82607; 82746; 83036; 83735; 84439; 84443; 85025; 87086; 87635; 93005; 97110; 97116; 97162; 97530; 99285; C1758